=== PATIENT | female | born 1945 | race Caucasian/White ===

== ENCOUNTER 2019-09-03 12:14 | Outpatient (CLI) | payer MEDICARE, SELFPAY ==
--- NOTE | ~2019-09-03 | XR_ITS ---
XR elbow RT min 3V 09/03/2019 12:43 Indication: Right elbow pain Procedure: 4 views right elbow Comparison: No prior studies for comparison. Findings: There is lucency in the radial head, suspicious for nondisplaced fracture. There is a small joint effusion with displacement of the ventral fat pad. Anatomic alignment. No other fracture. Impression: 1: Possible nondisplaced radial head fracture. 2: Small joint effusion. Reviewed, dictated and finalized at location A. Impression: 1: Possible nondisplaced radial head fracture. 2: Small joint effusion.
== END 2019-09-03 12:15 | disposition home or self-care (01) ==
LOC: ANHIMG 12:24
PROVIDERS: PCP Internal Medicine; Visit Provider Internal Medicine
DX: M25.421 Effusion, right elbow (principal)
CPT/HCPCS: 73080

== ENCOUNTER → 2019-09-03 12:48 | Outpatient (CLI) | payer MEDICARE, SELFPAY ==
--- NOTE | ~2019-09-03 | MM_ITS ---
EXAMINATION: MM screening joshua BI w maame HISTORY: Screening mammogram TECHNIQUE: Craniocaudal and mediolateral oblique 3-D tomosynthesis images were obtained and synthetic 2-D images were generated. CAD analysis was submitted and interpreted. COMPARISON: Comparison to multiple prior studies sequentially, with oldest reviewed study dated 06/04. BREAST PARENCHYMAL COMPOSITION: There are scattered areas of fibroglandular density. FINDINGS: There is a focal subareolar mass in the right breast on MLO view measuring approximately 4 mm. The left breast is stable without evidence for malignancy. IMPRESSION: 1. New 4 mm right breast mass subareolar location. 2. Additional mammographic views and possible breast ultrasound are recommended. BI-RADS Category 0: Incomplete: Needs additional imaging evaluation. Reviewed, dictated and finalized at location A. IMPRESSION: 1. New 4 mm right breast mass subareolar location. 2. Additional mammographic views and possible breast ultrasound are recommended . BI-RADS Category 0: Incomplete: Needs additional imaging evaluation.
== END ==
PROVIDERS: PCP Internal Medicine; Visit Provider Internal Medicine
DX: Z12.31 Encounter for screening mammogram for malignant neoplasm of breast (principal); R92.8 Other abnormal and inconclusive findings on diagnostic imaging of breast
CPT/HCPCS: 77063; 77067

== ENCOUNTER 2019-09-12 12:18 | Outpatient (CLI) | payer MEDICARE, SELFPAY ==
--- NOTE | ~2019-09-12 | MMUS_ITS ---
EXAMINATION: MM diagnostic mammo unilat RT, US breast RT limited HISTORY: Subareolar right breast mass on screening mammogram TECHNIQUE: Additional 3-D tomosynthesis images of the right breast were performed and synthetic 2-D i mages were generated. CAD analysis was submitted and interpreted. High resolution limited right breas t ultrasound was performed. COMPARISON: 09/03/2019, 08/21/2018, 06/10/1917, 07/05/2016, 06/08/2015 FINDINGS: MAMMOGRAPHIC FINDINGS: A 4 mm subareolar mass is seen which has an appearance similar to comparison mammograms with spot com pression. No suspicious calcification or architectural distortion are identified. ULTRASOUND: There is no evidence of focal abnormal solid or cystic lesion in the vicinity of the mammographic fin ding in question. Mildly dilated subareolar ducts are noted. IMPRESSION: 1. No mammographic or sonographic evidence of malignancy. 2. Recommend routine screening mammography in one year. BI-RADS Category 2: Benign finding(s). Reviewed, dictated and finalized at location A. IMPRESSION: 1. No mammographic or sonographic evidence of malignancy. 2. Recommend routine screening mammography in one year. BI-RADS Category 2: Benign finding(s).
== END 2019-09-12 12:19 | disposition home or self-care (01) ==
LOC: ANHIMG 12:20
PROVIDERS: PCP Internal Medicine; Visit Provider Internal Medicine
DX: R92.8 Other abnormal and inconclusive findings on diagnostic imaging of breast (principal)
CPT/HCPCS: 76642; 77065

== ENCOUNTER 2020-02-16 17:45 | Emergency (ER) | payer MEDICARE, SELFPAY ==
--- NOTE | ~2020-02-16 | CT_ITS ---
EXAMINATION: CT brain wo con INDICATION: Headache COMPARISON: 05/31/2019 TECHNIQUE: Standard unenhanced head CT. The dose-length product (DLP) was 605.33 mGy-cm. The mA was a djusted according to patient size. Iterative reconstruction technique was employed. FINDINGS: There is no acute intraparenchymal hemorrhage. No evidence of mass lesion. No evidence of a cute infarction. There is mild periventricular and subcortical hypodensity probably related to small vessel ischemic disease. There is mild prominence of the sulci and ventricles related to cerebral atr ophy. Intracranial calcified cerebral atherosclerosis is noted. There are no extra-axial collections. There is no mass effect or midline shift. The orbits and soft tissues are unremarkable. The visuali zed sinuses and mastoid air cells are well aerated. IMPRESSION: 1. No acute intracranial abnormality. 2. Age related findings. Reviewed, dictated and finalized at location A.
[2020-02-16 18:02] VITALS: BP 182/90; PULSE 97; RESP 18; TEMP 36.7; O2SAT 98
[2020-02-16 18:18] LABS: Basophils Absolute Auto 0.1 K/mm3 (0.0-0.1); Basophils Percent Auto 0.6 % (0.2-1.2); Eosinophils Percent Auto 0.3 % (0-4.4); Hematocrit 36.1 % (37.0-47.0); Hemoglobin 11.2 g/dL (12.0-15.0); Immature Granulocyte Absolute 0.09 K/mm3 (0.00-0.031); Immature Granulocyte Percent A 0.8 % (0-0.5); Lymphocytes Absolute Auto 1.37 K/mm3 (0.9-3.2); Lymphocytes Percent Auto 12.1 % (18.3-44.2); Mean Corpuscular Hemoglobin 23.3 pg (26-34); Mean Corpuscular Volume 75.2 fl (80-100); Mean Platelet Volume 9.9 fl (7.4-10.4); Monocytes Absolute Auto 0.7 K/mm3 (0.1-0.6); Neutrophils Absolute Auto 9.1 K/mm3 (1.3-6.7); Neutrophils Percent Auto 80.2 % (45.5-73.1); Platelet Count Result 405 k/mm3 (150-375); Red Cell Distribution Width 18.2 % (11.5-14.5); White Blood Count 11.3 K/mm3 (4.5-10.0)
[2020-02-16 18:33] LABS: Alanine Aminotransferase 23 U/L (4-35); Albumin Level 4.7 g/dL (3.5-5.1); Alkaline Phosphatase 88 U/L (38-126); Anion Gap 13 mmol/L (8-16); Aspartate Amino Transferase 26 U/L (14-36); Bilirubin,Total 0.4 mg/dL (0.2-1.3); Blood Urea Nitrogen 15 mg/dL (7-17); Calcium 10.5 mg/dL (8.4-10.2); Carbon Dioxide 30 mmol/L (22-30); Chloride 95 mmol/L (98-107); Estimated Glomerular Filt Rate > 60; Glucose 223 mg/dL (65-105); Lipase 131 U/L (23-300); Potassium 3.7 mmol/L (3.4-5.0); Sodium 138 mmol/L (137-145)
--- NOTE | 2020-02-16 19:16 | ED.HA ---
HPI - Headache General Chief Complaint: Headache Stated Complaint: sick for two days] Time Seen by Provider: 02/16/20 19:09 Source: RN notes reviewed History of Present Illness HPI Narrative: Patient presents emergency department from home for headache. Patient states headache began yesterday morning and is located in the bilateral frontal forehead. Patient states she has a history of migraines and this feels like her usual migraine. States the migraines usually improved with Tylenol however she states her last dose of Tylenol was this morning continues to have the headache. States has been associated nausea and vomiting. She denies any fevers or chills chest pain shortness of breath abdominal pain or any other symptoms. Related Data Home Medications Medication Instructions Recorded Confirmed aspirin 325 mg tablet 325 mg PO DAILY 05/27/19 01/07/20 empagliflozin 25 mg tablet 25 mg PO DAILY 05/27/19 01/07/20 glucosamine-chondroitin 250 mg-200 2 tablet PO TID 05/27/19 01/07/20 mg tablet multivitamin 1 tablet PO DAILY 05/27/19 01/07/20 omeprazole 40 mg capsule,delayed 40 mg PO BID 05/27/19 01/07/20 release sitagliptin 50 mg-metformin 1,000 1 tablet PO BID 05/27/19 01/07/20 mg tablet Allergies Allergy/AdvReac Type Severity Reaction Status Date / Time codeine Allergy Intermediate VOMITING Verified 02/16/20 18:05 AND MIGRAINES fentanyl Allergy Intermediate MIGRAINE,VO Verified 02/16/20 18:05 MITING hydrocodone Allergy Intermediate MIGRAINE,VO Verified 02/16/20 18:05 MITING Krsktit-Ffk-Kec Reductase Allergy Intermediate MIGRAINE,VO Verified 02/16/20 18:05 Inhibitor MITING Sulfa (Sulfonamide Allergy Intermediate RASH,HIVE Verified 02/16/20 18:05 Antibiotics) belladonna alkaloids Allergy Mild MIGRAINE,VO Verified 02/16/20 18:05 MITING phenobarbital Allergy Mild MIGRAINES,V Verified 02/16/20 18:05 OMITING morphine Allergy Unknown MIGRAINE,VO Verified 02/16/20 18:05 MITING lisinopril AdvReac Intermediate COUGH Verified 02/16/20 18:05 Review of Systems Review of Systems: Narrative: Gen.: Denies fevers or chills Eyes: Denies eye pain or visual change ENT: Denies congestion Respiratory: Denies shortness of breath or cough CV: Denies chest pain or palpitations GI: Denies abdominal pain reports nausea vomiting, denies diarrhea denies burning, urgency, frequency or hematuria Musculoskeletal: Denies back pain or muscle pain Neuro: See HPI Skin: Denies rash Except as documented, all other systems reviewed and negative [facility] Past Medical History Medical History Chronic pruritus Medial epicondylitis of right elbow Social History Social History Smoking status: Never smoker Alcohol intake: current Exam Narrative: Exam Narrative: APPEARANCE: No acute distress, nontoxic, resting in bed HEENT: Normocephalic, atraumatic, OMM, TMs clear bilaterally EYES: PERRL, EOMI NECK: Supple, nontender, full range of motion without pain, no meningismus RESPIRATORY: No respiratory distress, clear to auscultation bilaterally with no rhonchi wheezing or rales CARDIOVASCULAR: RRR s murmur ABDOMINAL: Soft, nontender, nondistended MUSCULOSKELETAL: Moves all extremities. No clubbing, cyanosis or edema. NEURO: A and O ?3, following commands, speech normal, no facial droop,muscle strength 5 out of 5 bilateral upper and lower extremities SKIN:: Warm, dry. Normal Color PSYCHIATRIC: Normal affect/mood Course Course Emergency Course: Patient states she is feeling much better following medications states headache is almost completely resolved at this time. Patient got up and walk to the restroom several times without difficulty. Patient is able to eat and drink in ED with no emesis states she is ready for discharge Discussed with patient results of workup and diagnosis. Discussed need for
[2020-02-16 19:31] LABS: Add Urine Microscopic? YES; Appearance Urine Clear (Clear); Bacteria Urine Trace /hpf; Bilirubin Urine Negative (Negative); Color Urine Yellow (Yellow); Glucose Urine UA 2+ mg/dL (Negative); Ketones Urine 1+ mg/dL (Negative); Leukocyte Esterase Ur 2+ LEU/UL (Negative); Mucus Urine Rare /lpf; Nitrate Urine Negative (Negative); Protein Urine 2+ mg/dL (Negative); Specific Grav Ur 1.019 (1.001-1.035); Squamous Epithelial Cell Urine Occasional /hpf (Few); Urobilinogen Urine Negative mg/dL (<2.0); WBC Urine 31-50 /hpf
[2020-02-16 19:39] LABS: Blood Urine Negative (Negative)
[2020-02-16] MEDS: LACTATED RINGERS 1,000 ML 999 ML IV CONT (19:41)
[2020-02-16] MEDS: ONDANSETRON INJ 4 MG/2 ML VIAL IV PUSH (19:43)
[2020-02-16] MEDS: SODIUM CHLORIDE 0.9% IV 500 ML 999 ML IV CONT (20:56)
[2020-02-16 21:48] VITALS: BP 162/78; PULSE 94; RESP 17; O2SAT 98
== END 2020-02-16 22:00 | disposition home or self-care (01) ==
PROVIDERS: Physician Assistant; Emergency Provider Emergency Medicine; PCP Internal Medicine
DX: N39.0 Urinary tract infection, site not specified (principal); R51 Headache; Z79.82 Long term (current) use of aspirin
CPT/HCPCS: 36415; 70450; 80053; 81001; 83690; 85025; 87086; 87088; 96361; 96374; 96375; 99284; J0131; J0696; J2405; J7040; J7120

== ENCOUNTER 2020-02-25 14:38 | Emergency (ER) | payer MEDICARE, SELFPAY ==
[2020-02-25 15:21] VITALS: BP 153/79; PULSE 98; RESP 14; TEMP 36.8; O2SAT 100
[2020-02-25 15:36] VITALS: BP 153/79; PULSE 98; RESP 18; TEMP 36.3; O2SAT 100
--- NOTE | 2020-02-25 15:52 | ED.GENADULT ---
HPI - General Adult General Chief complaint: Headache Stated complaint: headache Time Seen by Provider: 02/25/20 15:45 Source: patient History of Present Illness HPI narrative: Patient is a 74 y/o female complaining of right sided headache starting around 3:00 PM yesterday. She describes her headache as a pressure and rates it as 10/10. She took Imitrex which did not help. She also has some nausea and vomiting. She denies any fever, chill, neck pain or stiffness. She denies any focal weakness, numbness or speech difficulty. She has history of migraine. Related Data Home Medications Medication Instructions Recorded Confirmed aspirin 325 mg tablet 325 mg PO DAILY 05/27/19 02/21/20 empagliflozin 25 mg tablet 25 mg PO DAILY 05/27/19 02/21/20 glucosamine-chondroitin 250 mg-200 2 tablet PO TID 05/27/19 02/21/20 mg tablet multivitamin 1 tablet PO DAILY 05/27/19 02/21/20 omeprazole 40 mg capsule,delayed 40 mg PO BID 05/27/19 02/21/20 release sitagliptin 50 mg-metformin 1,000 1 tablet PO BID 05/27/19 01/07/20 mg tablet dulaglutide [Trulicity] 0.75 mg SUBCUT WEEKLY 02/16/20 02/21/20 Allergies Allergy/AdvReac Type Severity Reaction Status Date / Time codeine Allergy Intermediate VOMITING Verified 02/25/20 15:35 AND MIGRAINES fentanyl Allergy Intermediate MIGRAINE,VO Verified 02/25/20 15:35 MITING hydrocodone Allergy Intermediate MIGRAINE,VO Verified 02/25/20 15:35 MITING Webakmc-Zre-Gxl Reductase Allergy Intermediate MIGRAINE,VO Verified 02/25/20 15:35 Inhibitor MITING Sulfa (Sulfonamide Allergy Intermediate RASH,HIVE Verified 02/25/20 15:35 Antibiotics) belladonna alkaloids Allergy Mild MIGRAINE,VO Verified 02/25/20 15:35 MITING phenobarbital Allergy Mild MIGRAINES,V Verified 02/25/20 15:35 OMITING morphine Allergy Unknown MIGRAINE,VO Verified 02/25/20 15:35 MITING lisinopril AdvReac Intermediate COUGH Verified 02/25/20 15:35 Review of Systems Constitutional: Constitutional: Denies chills, Denies fever(s), Denies headache(s) and Denies weakness Eyes: Eyes: Denies blurry vision ENT: Denies headache(s) and Denies neck pain Cardiovascular: Cardiovascular: Denies chest pain and Denies dyspnea Respiratory: Respiratory: Denies cough and Denies dyspnea Gastrointestinal: Gastrointestinal: Denies abdominal pain, Denies diarrhea, Reports nausea and Reports vomiting Genitourinary: Genitourinary: Denies hematuria and Denies dysuria Musculoskeletal: Musculoskeletal: Denies back pain and Denies neck pain Neurologic: Denies headache(s) and Denies weakness PMFSH Past Medical History Medical History Chronic pruritus Medial epicondylitis of right elbow Family History Family History Father Family history of blood dyscrasia Family history of Alzheimer's disease Family history of macular degeneration Mother Family history of chronic obstructive pulmonary disease Family history of coronary artery disease Family history of malignant neoplasm of esophagus Grandparent Carcinoma of colon Sibling Family history of type 2 diabetes mellitus Other Family history of malignant neoplasm of breast Social History Social History Smoking status: Never smoker Alcohol intake: current Gender identity (if verbalized by the patient): Female Exam Const: General: no acute distress and well developed Orientation/consciousness: oriented to person, oriented to place, oriented to time and patient oriented x3 HENMT: Head: normocephalic Ears: external ears normal General nose exam: Normal external nose present Eyes: General: appearance normal, both eyes and all related structures Conjunctivae: conjunctivae normal Neck: Neck: normal visual inspection and full ROM Chest: Chest palpation & inspection: normal inspection of the
[2020-02-25] MEDS: SODIUM CHLORIDE 0.9% IV 1,000 ML 999 ML IV CONT (16:11)
[2020-02-25 16:12] LABS: Basophils Absolute Auto 0.1 K/mm3 (0.0-0.1); Basophils Percent Auto 0.5 % (0.2-1.2); Eosinophils Absolute Auto 0.1 K/mm3 (0-0.3); Eosinophils Percent Auto 0.4 % (0-4.4); Hemoglobin 11.4 g/dL (12.0-15.0); Immature Granulocyte Absolute 0.06 K/mm3 (0.00-0.031); Immature Granulocyte Percent A 0.5 % (0-0.5); Lymphocytes Absolute Auto 1.41 K/mm3 (0.9-3.2); Lymphocytes Percent Auto 11.9 % (18.3-44.2); Mean Corpuscular HGB Conc 31.7 g/dl (32-36); Mean Corpuscular Hemoglobin 23.9 pg (26-34); Mean Corpuscular Volume 75.6 fl (80-100); Mean Platelet Volume 10.1 fl (7.4-10.4); Monocytes Absolute Auto 0.6 K/mm3 (0.1-0.6); Monocytes Percent Auto 5.3 % (2.6-8.5); Neutrophils Absolute Auto 9.6 K/mm3 (1.3-6.7); Neutrophils Percent Auto 81.4 % (45.5-73.1); Platelet Count Result 395 k/mm3 (150-375); Red Blood Count 4.76 M/mm3 (4.2-5.4); Red Cell Distribution Width 17.8 % (11.5-14.5); White Blood Count 11.8 K/mm3 (4.5-10.0)
[2020-02-25] MEDS: METOCLOPRAMIDE HCL INJ 10 MG/2 ML VIAL IV PUSH (16:12)
[2020-02-25] MEDS: KETOROLAC 15 MG/ML VIAL (*BKC) IV PUSH (16:12)
[2020-02-25] MEDS: diphenhydrAMINE HCl INJ 50 MG/ML VIAL 25 MG IV PUSH (16:12)
[2020-02-25 16:25] LABS: Anion Gap 11 mmol/L (8-16); Blood Urea Nitrogen 14 mg/dL (7-17); Calcium 10.4 mg/dL (8.4-10.2); Carbon Dioxide 32 mmol/L (22-30); Chloride 94 mmol/L (98-107); Estimated Glomerular Filt Rate > 60; Glucose 235 mg/dL (65-105); Potassium 4.1 mmol/L (3.4-5.0); Sodium 137 mmol/L (137-145)
[2020-02-25 17:55] VITALS: BP 186/91; PULSE 92; RESP 20; O2SAT 97
--- NOTE | 2020-02-25 17:58 | PC.NURSE ---
pt verbalizing that she plans to stop her home bp meds that this is what is causing her these headaches and she is not going to deal with it any longer. RN advised her to continue her home medications until further discussions with her pcp can happen.
== END 2020-02-25 17:59 | disposition home or self-care (01) ==
PROVIDERS: Emergency Provider Emergency Medicine; PCP Internal Medicine
DX: G43.909 Migraine, unspecified, not intractable, without status migrainosus (principal)
CPT/HCPCS: 36415; 80048; 85025; 96361; 96374; 96375; 99284; J1200; J1885; J2765; J7030

== ENCOUNTER 2020-03-26 09:45 | Outpatient (CLI) | payer MEDICARE, SELFPAY ==
--- NOTE | ~2020-03-26 | XR_ITS ---
EXAMINATION: XR chest 2V EXAM DATE: 03/26/2020 10:12 INDICATION: Cough. Hypertension. TECHNIQUE: Frontal and lateral projections of the chest obtained and reviewed. Comparison is made to prior examination from 05/07/2015. FINDINGS: The lungs are clear. There are no pleural effusions. The cardiomediastinal silhouette is within normal limits. There is no pneumothorax suspected. Mild thoracic dextroscoliosis. IMPRESSION: No acute cardiopulmonary findings. Reviewed, dictated and finalized at location B. OPERATOR
== END 2020-03-26 09:46 | disposition home or self-care (01) ==
PROVIDERS: PCP Internal Medicine; Visit Provider Internal Medicine
DX: R05 Cough (principal); I10 Essential (primary) hypertension
CPT/HCPCS: 71046

== ENCOUNTER 2020-04-09 08:21 | Outpatient (CLI) | payer MEDICARE, SELFPAY ==
--- NOTE | ~2020-04-09 | NM_ITS ---
EXAMINATION: NM stress w perf spect multi DATE: 04/09/2020 13:06 INDICATION: Chest pain on exertion. TECHNIQUE: Rest images were obtained following intravenous administration of 8.9 mCi Tc99m tetrofosmi n ([place]). The patient performed an exercise activity. At peak exercise, 26.8 mCi Tc99m tetrofosmin ([place]) was administered intravenously, and stress images were obtained. Data was reconstructed in to short axis and horizontal and vertical long axis SPECT images. Gated SPECT images were also obtain ed. COMPARISON: Myocardial perfusion imaging 08/02/2018 FINDINGS: There is no definite reversible or fixed perfusion abnormality to suggest ischemia or infar ction. There is no segmental wall motion abnormality. Left ventricular ejection fraction measures > 70%. IMPRESSION: 1. No definite ischemia or infarct. 2. Normal left ventricular ejection fraction measuring >70%. Reviewed, dictated and finalized at location A. GHT RATE SPECIALIST
--- NOTE | 2020-04-09 08:40 | EST_ITS ---
Patient Info Name: Shandra Wilson Age: 74 years : 1945 Gender: Female Ht: 57 in Exam Date: 04/09/2020 10:34 AM Exam Location: [facility] Stress Patient Status: Outpatient Admit Date: 04/09/2020 Staff Ordering Physician: Easton Dawson DO Attending Provider: Easton Dawson DO Exercise Technologist: Kaelyn Fuentes RDCS Exam Type: CA stress test treadmill w NM Study Info Indications R07.9 - Chest pain, unspecified A pharmacological stress test was performed. Summary 1. Normal sinus rhythm - normal ECG. 2. No abnormal ST/T wave changes with exercise. 3. Clinically and electrocardiographically negative stress test at 98% of the age predicted maximum heart rate. 4. Myocardial perfusion imaging study to be dictated by Radiology. Protocol: [facility] Stress ECG Details Stage: REST Duration (min): 12 min : 2 sec Speed (mph): 0.0 Grade (%): 0 HR (bpm): 89 SBP (mmHg): 189 DBP (mmHg): 91 METS: --- Stage: REST Duration (min): 16 min : 33 sec Speed (mph): 0.0 Grade (%): 0 HR (bpm): 90 SBP (mmHg): 189 DBP (mmHg): 91 METS: --- Stage: STAGE 1 Duration (min): 1 min : 0 sec Speed (mph): 1.7 Grade (%): 10 HR (bpm): 117 SBP (mmHg): 189 DBP (mmHg): 91 METS: --- Stage: STAGE 1 Duration (min): 2 min : 0 sec Speed (mph): 1.7 Grade (%): 10 HR (bpm): 124 SBP (mmHg): 189 DBP (mmHg): 91 METS: --- Stage: STAGE 1 Duration (min): 3 min : 0 sec Speed (mph): 1.7 Grade (%): 10 HR (bpm): 131 SBP (mmHg): 188 DBP (mmHg): 72 METS: --- Stage: STAGE 2 Duration (min): 1 min : 0 sec Speed (mph): 2.5 Grade (%): 12 HR (bpm): 144 SBP (mmHg): 188 DBP (mmHg): 72 METS: --- Stage: STAGE 2 Duration (min): 1 min : 10 sec Speed (mph): 2.5 Grade (%): 12 HR (bpm): 146 SBP (mmHg): 188 DBP (mmHg): 72 METS: --- Stage: RECOVERY Duration (min): 0 min : 49 sec Speed (mph): 0.0 Grade (%): 0 HR (bpm): 135 SBP (mmHg): 183 DBP (mmHg): 73 METS: --- Stage: RECOVERY Duration (min): 1 min : 49 sec Speed (mph): 0.0 Grade (%): 0 HR (bpm): 125 SBP (mmHg): 183 DBP (mmHg): 73 METS: --- Stage: RECOVERY Duration (min): 2 min : 49 sec Speed (mph): 0.0 Grade (%): 0 HR (bpm): 120 SBP (mmHg): 183 DBP (mmHg): 73 METS: --- Stage: RECOVERY Duration (min): 3 min : 49 sec Speed (mph): 0.0 Grade (%): 0 HR (bpm): 115 SBP (mmHg): 189 DBP (mmHg): 79 METS: --- Stage: RECOVERY Duration (min): 4 min : 49 sec Speed (mph): 0.0 Grade (%): 0 HR (bpm): 105 SBP (mmHg): 187 DBP (mmHg): 80 METS: --- Stage: RECOVERY Duration (min): 5 min : 49 sec Speed (mph): 0.0 Grade (%): 0 HR (bpm): 104 SBP (mmHg): 187 DBP (mmHg): 80 METS: ---
== END 2020-04-09 08:22 | disposition home or self-care (01) ==
LOC: ANHCARD 08:23
PROVIDERS: PCP Internal Medicine; Visit Provider Internal Medicine
DX: R07.9 Chest pain, unspecified (principal)
CPT/HCPCS: 78452; 93017; A9502

== ENCOUNTER 2020-05-26 10:49 | Outpatient (CLI) | payer MEDICARE, SELFPAY ==
--- NOTE | ~2020-05-26 | XR_ITS ---
XR thoracic spine 2V DATE: 05/26/2020 11:04 INDICATION: Paresthesia of the skin. Numbness, swelling. TECHNIQUE: AP and lateral views COMPARISON: None FINDINGS: There is dextroscoliosis of the thoracic spine. There is degenerative spurring, most promin ent in the T7-T10 region. There is probable chronic mild anterior wedging and loss of height at T7 and T8 primarily. No recent fracture or bone destruction or paraspinal soft tissue thickening is evident. The thoracic pedicles a re intact. IMPRESSION: Dextro scoliosis and degenerative spurring No acute finding is noted Reviewed, dictated and finalized at location B. UTER NUMERICAL CONTROL GRINDER
== END 2020-05-26 10:50 | disposition home or self-care (01) ==
LOC: ANHIMG 10:53
PROVIDERS: PCP Internal Medicine; Visit Provider Nurse Practitioner
DX: R20.2 Paresthesia of skin (principal); M41.9 Scoliosis, unspecified
CPT/HCPCS: 72070

== ENCOUNTER 2020-06-02 13:42 | Outpatient (CLI) | payer MEDICARE, SELFPAY ==
--- NOTE | ~2020-06-02 | US_ITS ---
EXAMINATION: US pelvic complete w TV EXAM DATE: 06/02/2020 14:36 INDICATION: R10.9 - Unspecified abdominal pain. TECHNIQUE: Pelvic transabdominal and transvaginal sonogram was performed. There are multiple graysca le and Doppler images available for interpretation. There is no prior study for comparison. FINDINGS: Uterus measures 4.0 x 3.6 x 4.7 cm, with probable small fibroid measuring 1 cm endometrial stripe measures 10 mm, abnormally thickened for patient's postmenopausal status, and also with heter ogeneous echogenicity. There are nabothian cysts. There is no free pelvic fluid. Right adnexa: The ovary is not identified. There is no adnexal mass. Left adnexa: The left ovary is normal in size and morphology. IMPRESSION: 1. Mildly thickened endometrium, differential diagnosis including hyperplasia and carcinoma. 2. Small fibroid. 3. No acute findings. Reviewed, dictated and finalized at location B. TRACK MAINTAINER
== END 2020-06-02 13:43 | disposition home or self-care (01) ==
PROVIDERS: PCP Internal Medicine; Visit Provider Obstetrics & Gynecology
DX: R10.2 Pelvic and perineal pain (principal); D25.9 Leiomyoma of uterus, unspecified
CPT/HCPCS: 76830; 76856

== ENCOUNTER 2020-12-05 09:04 | Observation (INO) | payer MEDICARE, SELFPAY ==
[2020-12-05] VITALS (41 sets, daily range): BP systolic 119–167; BP diastolic 53–84; PULSE 86–109; RESP 11–27; TEMP 36.4–37.2; O2SAT 86–100; BMI 29.7
--- NOTE | ~2020-12-05 | CT_ITS ---
EXAMINATION: CT abdomen pelvis w con INDICATION: Diffuse abdominal pain TECHNIQUE: Computed tomographic images of the abdomen and pelvis were obtained after the administrati on of 100 cc of Omnipaque 350 intravenous contrast. The dose-length product (DLP) was 275.58 mGy-cm. Automated exposure control and iterative reconstruction technique were employed. COMPARISON: 11/05/2014 FINDINGS: Minimal dependent atelectasis is present in the lung bases. The heart size is normal. The l iver, spleen, pancreas, gallbladder, and adrenal glands are normal. The kidneys are unremarkable. The appendix is normal. Colonic diverticulosis is present without evidence of diverticulitis. No patholo gically enlarged abdominal or pelvic lymph nodes are identified. There is no free intraperitoneal gas or evidence of bowel obstruction. There is mild lumbar spondylosis. IMPRESSION: 1. No CT correlate for the patient's symptoms. Reviewed, dictated and finalized at location A.
--- NOTE | ~2020-12-05 | XR_ITS ---
EXAMINATION: XR chest 1V portable INDICATION: Weakness TECHNIQUE: Portable AP chest at 1013 hours COMPARISON: 03/26/2020 FINDINGS: The lungs are free of acute opacities. There is no pleural effusion or pneumothorax. The ca rdiomediastinal silhouette is normal. The visualized bones and soft tissues are unremarkable. IMPRESSION: 1. No acute cardiopulmonary abnormality. Reviewed, dictated and finalized at location A.
--- NOTE | ~2020-12-05 | CT_ITS ---
EXAMINATION: CT brain wo con INDICATION: Generalized weakness COMPARISON: 02/16/2020 TECHNIQUE: Standard unenhanced head CT. The dose-length product (DLP) was 605.33 mGy-cm. The mA was a djusted according to patient size. Iterative reconstruction technique was employed. FINDINGS: There is no acute intraparenchymal hemorrhage. No evidence of mass lesion. No evidence of a cute infarction. There is hypoattenuation in left caudate and left insular cortex, and left temporal and occipital lobes. There is mild periventricular and subcortical hypodensity probably related to sm all vessel ischemic disease. There is mild prominence of the sulci and ventricles related to cerebral atrophy. Intracranial calcified cerebral atherosclerosis is noted. There are no extra-axial collecti ons. There is no mass effect or midline shift. The orbits and soft tissues are unremarkable. The visu alized sinuses and mastoid air cells are well aerated. IMPRESSION: 1. Low-attenuation in the left caudate, left insular cortex, and left temporal and occipital lobes, c onsistent with subacute infarct. 2. Age related findings. Reviewed, dictated and finalized at location A. IMPRESSION: 1. Low-attenuation in the left caudate, left insular cortex, and left temporal and occipital lobes, consistent with subacute infarct. 2. Age related findings.
--- NOTE | 2020-12-05 09:17 | ECG_ITS ---
Measurements Intervals [place] Rate: 85 P: 48 UT: 142 QRS: 17 QRSD: 72 T: 69 QT: 343 QTc: 408 Interpretive Statements SINUS RHYTHM DELAYED PRECORDIAL R/S TRANSITION BORDERLINE ST-T WAVE ABNORMALITY- HIGH LATERAL LEADS BASELINE WANDER- AVR, AVL, AVF BORDERLINE ECG Electronically Signed On 12-05-2020 12:01:30 CDT by Aristides Kent D.O.
--- NOTE | 2020-12-05 10:05 | ED.GENADULT ---
HPI - General Adult General Chief complaint: Arrhythmia/Palpitations Stated complaint: poss afib 170s Time Seen by Provider: 12/05/20 09:27 Source: family and RN notes reviewed Mode of arrival: ambulatory Limitations: other (poor historia) History of Present Illness HPI narrative: This is a 75 year old female with history of hypertension, DM, stroke who presents for evaluation for possible atrial fibrillation. Patient states she has felt unwell for 1 days. She reports 2 episodes in which she felt her heart racing. Her daughter in law wrote down that patient's HR was 170. Patient reports fatigue and nausea. She denies chest pain, sob, headache, dizziness, abdominal pain, diarrhea or urinary complaints. Her sister is at bedside to provide additional history. She states patient suffered a stroke in August, and she has weakness and intermittent confusion due to this stroke. Related Data Home Medications Medication Instructions Recorded Confirmed aspirin 325 mg tablet 325 mg PO DAILY 05/27/19 12/05/20 amlodipine 5 mg tablet 5 mg PO DAILY 11/18/20 12/05/20 atorvastatin 20 mg tablet 20 mg PO DAILY 11/18/20 12/05/20 clopidogrel 75 mg tablet 75 mg PO DAILY 11/18/20 12/05/20 ferrous sulfate 325 mg (65 mg 325 mg PO BID 11/18/20 12/05/20 iron) tablet fluoxetine 20 mg capsule 20 mg PO DAILY 11/18/20 12/05/20 hydralazine 50 mg tablet 75 mg PO BID tablet 11/18/20 12/05/20 insulin glargine 100 unit/mL 30 unit SUBCUT DAILY ml 11/18/20 12/05/20 subcutaneous solution insulin lispro 100 unit/mL 1 sliding scale dose SUBCUT 11/18/20 12/05/20 subcutaneous solution USEASDIRECTD losartan 100 mg tablet 50 mg PO DAILY tablet 11/18/20 12/05/20 menthol 0.44 %-zinc oxide 20.6 % 1 applic TOPICAL QID PRN 11/18/20 12/05/20 topical ointment pantoprazole 40 mg tablet,delayed 40 mg PO BID tablet 11/18/20 12/05/20 release aspirin 81 mg PO DAILY 12/05/20 12/05/20 linagliptin [Tradjenta] 5 mg PO DAILY 12/05/20 12/05/20 metformin 1,000 mg PO BID 12/05/20 12/05/20 Allergies Allergy/AdvReac Type Severity Reaction Status Date / Time Sulfa (Sulfonamide Allergy Intermediate RASH,HIVE Verified 12/05/20 16:47 Antibiotics) codeine AdvReac Intermediate VOMITING Verified 12/05/20 16:47 AND MIGRAINES fentanyl AdvReac Intermediate MIGRAINE,VO Verified 12/05/20 16:47 MITING hydrocodone AdvReac Intermediate MIGRAINE,VO Verified 12/05/20 16:47 MITING lisinopril AdvReac Intermediate COUGH Verified 12/05/20 16:47 metoprolol AdvReac Intermediate migraines,v Verified 12/05/20 16:47 omiting Nzbbkir-Ezv-Fxr Reductase AdvReac Intermediate MIGRAINE,VO Verified 12/05/20 16:47 Inhibitor MITING belladonna alkaloids AdvReac Mild MIGRAINE,VO Verified 12/05/20 16:47 MITING cephalexin AdvReac Mild Vomiting Verified 12/05/20 16:47 phenobarbital AdvReac Mild MIGRAINES,V Verified 12/05/20 16:47 OMITING morphine AdvReac Unknown MIGRAINE,VO Verified 12/05/20 16:47 MITING Review of Systems Review of Systems: All systems reviewed & are unremarkable except as noted in HPI and below Constitutional: Constitutional: Reports chills, Denies fever(s) and Reports weakness Cardiovascular: Cardiovascular: Denies chest pain and Denies rapid heart rate Respiratory: Respiratory: Denies cough and Denies dyspnea Gastrointestinal: Gastrointestinal: Denies abdominal pain, Reports diarrhea and Denies nausea PMFSH Past Medical History Medical History Chronic pruritus CVA (cerebral vascular accident) Diabetes DM w/o complication type II, uncontrolled Hyperlipidemia Hypertension Medial epicondylitis of right elbow Uterine cancer Surgical History Surgical History H/O: hysterectomy Family History Family History Father Family history of blood dyscrasia Family
[2020-12-05] MEDS: SODIUM CHLORIDE 0.9% IV 1,000 ML 999 ML IV CONT ×2 (10:31→11:30)
[2020-12-05 10:37] LABS: Glucose Point of Care 102 mg/dl (65-105)
[2020-12-05 10:56] LABS: Basophils Absolute Auto 0.1 K/mm3 (0.0-0.1); Basophils Percent Auto 0.7 % (0.2-1.2); Eosinophils Absolute Auto 0.1 K/mm3 (0-0.3); Eosinophils Percent Auto 0.7 % (0-4.4); Hematocrit 31.5 % (37.0-47.0); Hemoglobin 10.7 g/dL (12.0-15.0); Immature Granulocyte Absolute 0.07 K/mm3 (0.00-0.031); Immature Granulocyte Percent A 0.6 % (0-0.5); Lymphocytes Absolute Auto 1.23 K/mm3 (0.9-3.2); Lymphocytes Percent Auto 10.6 % (18.3-44.2); Mean Corpuscular Hemoglobin 28.2 pg (26-34); Mean Corpuscular Volume 83.1 fl (80-100); Mean Platelet Volume 10.4 fl (7.4-10.4); Monocytes Percent Auto 8.3 % (2.6-8.5); Neutrophils Absolute Auto 9.2 K/mm3 (1.3-6.7); Neutrophils Percent Auto 79.1 % (45.5-73.1); Platelet Count Result 363 k/mm3 (150-375); Red Blood Count 3.79 M/mm3 (4.2-5.4); Red Cell Distribution Width 14.9 % (11.5-14.5); White Blood Count 11.6 K/mm3 (4.5-10.0)
[2020-12-05 11:12] LABS: Add Urine Microscopic? NO; Appearance Urine Clear (Clear); Bilirubin Urine Negative (Negative); Blood Urine Negative (Negative); Color Urine Yellow (Yellow); Glucose Urine UA Negative (Negative); Ketones Urine Negative (Negative); Leukocyte Esterase Ur Negative LEU/UL (Negative); Nitrate Urine Negative (Negative); Protein Urine Negative (Negative); Specific Grav Ur 1.009 (1.001-1.035); Urobilinogen Urine Negative mg/dL (<2.0)
[2020-12-05 11:13] LABS: Alanine Aminotransferase 11 U/L (4-35); Albumin Level 4.1 g/dL (3.5-5.1); Alkaline Phosphatase 52 U/L (38-126); Anion Gap 12 mmol/L (8-16); Aspartate Amino Transferase 26 U/L (14-36); Bilirubin,Total 0.4 mg/dL (0.2-1.3); Blood Urea Nitrogen 18 mg/dL (7-17); Carbon Dioxide 20 mmol/L (22-30); Chloride 98 mmol/L (98-107); Estimated Glomerular Filt Rate 49; Glucose 117 mg/dL (65-110); Lipase 272 U/L (23-300); Magnesium 0.8 mg/dL (1.6-2.3); Potassium 4.1 mmol/L (3.4-5.0); Sodium 130 mmol/L (137-145)
[2020-12-05 11:25] LABS: Troponin I < 0.012 ng/mL (0.000-0.034)
[2020-12-05] MEDS: MAGNESIUM SULFATE 3GM/D5W100ML 3 GM/100 ML BAG IVPB (11:30)
[2020-12-05 11:35] LABS: Lactic Acid Reflex 0.9 mmol/L (0.7-2.1)
--- NOTE | 2020-12-05 12:42 | PC.NURSE ---
Pt to radiology
--- NOTE | 2020-12-05 14:52 | PC.NURSE ---
Pt approved sister, Viv Domingo ([phone]), to receive updates and medical information during hospital stay.
--- NOTE | 2020-12-05 15:04 | PC.NURSE ---
Blood glucose was 73 before eating lunch
[2020-12-05 15:05] LABS: Glucose Point of Care 73 mg/dl (65-105)
--- NOTE | 2020-12-05 16:00 | PM.IMHP ---
H&P: HPI History of Present Illness Date/Time: 12/05/20 15:15 Chief Complaint: arrhythmia palpitations Narrative: patient is a 75-year-old female with past medical history of CVA, hypertension, diabetes, and hyperlipidemia that presented to the ER today for evaluation of tachycardia. Patient stated that this all started yesterday and that she had palpitations for 3 hours. One of her family members took her rate pulse rate of 178 and another 1 of her family members took it later on that night was 98. She also stated that she became very short of breath however she denied chest pain nausea, vomiting, sweats, headache lightheadedness, dizziness, numbness and tingling. She did also state that she had some shaking that would not stop it was a whole body is. She did not take anything to help relieve the symptoms. Patient did state that she had a stroke about a month ago and went to [facility] for treatment. After [facility] she went to rehab and then to [facility] for about a week And a half. patient denies a history of AFib. patient will be admitted under observation status with the supervising physician of Dr. Gutierres Review of Systems Review of Systems: All systems reviewed & are unremarkable except as noted in HPI and below PMFSH Past Medical History Medical History Chronic pruritus CVA (cerebral vascular accident) Diabetes DM w/o complication type II, uncontrolled Hyperlipidemia Hypertension Medial epicondylitis of right elbow Uterine cancer Surgical History Surgical History H/O: hysterectomy Family History Family History Father Family history of blood dyscrasia Family history of Alzheimer's disease Family history of macular degeneration Mother Family history of chronic obstructive pulmonary disease Family history of coronary artery disease Family history of malignant neoplasm of esophagus Grandparent Carcinoma of colon Sibling Family history of type 2 diabetes mellitus Other Family history of malignant neoplasm of breast Social History Social History Social History: patient recently had a stroke about a month ago and was at [facility] for last week and half. When she leaves here she is going to move in with her son Chin in [place]. her son Chin Resendez will be her surrogate and patient wishes to be a full code. Currently patient lives with no other pets Smoking status: Never smoker Second hand tobacco smoke exposure: Yes Alcohol intake: former Alcohol use details: Social Substance use: never Living arrangements: [facility] Occupation/Education: retired Gender identity (if verbalized by the patient): Female Sexual Orientation (if Verbalized by the Patient): Straight or Heterosexual Spiritual care concerns: No Meds Home Medications and Allergies Home Medications Medication Instructions Recorded Confirmed Type blood sugar diagnostic #200 ea 03/31/20 12/05/20 Rx ondansetron 4 mg disintegrating 4 mg PO Q6H PRN #30 tablet 08/11/20 12/05/20 Rx tablet ezetimibe 10 mg tablet 10 mg PO DAILY #90 tablet 09/14/20 12/05/20 Rx amlodipine 5 mg tablet 5 mg PO DAILY 11/18/20 12/05/20 History atorvastatin 20 mg tablet 20 mg PO DAILY 11/18/20 12/05/20 History clopidogrel 75 mg tablet 75 mg PO DAILY 11/18/20 12/05/20 History ferrous sulfate 325 mg (65 mg 325 mg PO BID 11/18/20 12/05/20 History iron) tablet fluoxetine 20 mg capsule 20 mg PO DAILY 11/18/20 12/05/20 History hydralazine 50 mg tablet 75 mg PO BID tablet 11/18/20 12/05/20 History insulin glargine 100 unit/mL 30 unit SUBCUT DAILY ml 11/18/20 12/05/20 History subcutaneous solution insulin lispro 100 unit/mL 1 sliding scale dose SUBCUT 11/18/20 12/05/20 History subcutaneous solution USEASDIRECTD lo
--- NOTE | 2020-12-05 16:26 | ADMGEN ---
This patient, Shandra Wilson, was admitted to 3 Med Surg Room 305-01. Patient/family oriented to hospital policies and general routines including ID bracelet, bed and alarms, visiting hours, pain management, procedures, bathroom and other care routines, personal items, smoking policy, room service/diet, and visiting hours. Information on how to activate the Rapid Response Team has been discussed. Patient/Family are encouraged to report perceived risks to care and to ask questions if they do not understand what they are told or what they should do.
[2020-12-05 17:01] LABS: Glucose Point of Care 144 mg/dl (65-105)
[2020-12-05 17:21] LABS: Magnesium 1.9 mg/dL (1.6-2.3)
[2020-12-05] MEDS: SODIUM CHLORIDE 0.9% IV 1,000 ML 125 ML IV CONT (18:29)
[2020-12-05] MEDS: hydrALAZINE HCL 25 MG TABLET 75 MG PO (18:30)
[2020-12-05] MEDS: PANTOPRAZOLE 40 MG TABLET PO (18:30)
[2020-12-05] MEDS: FERROUS SULFATE 324 MG TABLET PO (18:30)
[2020-12-05 21:58] LABS: Glucose Point of Care 127 mg/dl (65-105)
[2020-12-06] VITALS (9 sets, daily range): BP systolic 150–155; BP diastolic 59–86; PULSE 90–103; RESP 16–18; TEMP 36.6–37.1; O2SAT 97–98
[2020-12-06] MEDS: SODIUM CHLORIDE 0.9% IV 1,000 ML 125 ML IV CONT (02:38)
[2020-12-06 06:04] LABS: Anion Gap 12 mmol/L (8-16); Blood Urea Nitrogen 10 mg/dL (7-17); Calcium 9.2 mg/dL (8.4-10.2); Carbon Dioxide 18 mmol/L (22-30); Chloride 109 mmol/L (98-107); Estimated Glomerular Filt Rate > 60; Glucose 128 mg/dL (65-110); Magnesium 1.4 mg/dL (1.6-2.3); Potassium 4.2 mmol/L (3.4-5.0); Sodium 139 mmol/L (137-145)
[2020-12-06 07:55] LABS: Glucose Point of Care 152 mg/dl (65-105)
[2020-12-06] MEDS: MAGNESIUM SULF 4 GM/WATER100ML 4 GM/100 ML BAG IVPB (07:57)
[2020-12-06] MEDS: CLOPIDOGREL BISULFATE 75 MG TABLET PO (08:57)
[2020-12-06] MEDS: FERROUS SULFATE 324 MG TABLET PO ×2 (08:57→17:31)
[2020-12-06] MEDS: ATORVASTATIN 20 MG TABLET PO (08:57)
[2020-12-06] MEDS: amLODIPine BESYLATE 5 MG TABLET PO (08:57)
[2020-12-06] MEDS: FLUoxetine HCL 20 MG CAPSULE PO (08:57)
[2020-12-06] MEDS: PANTOPRAZOLE 40 MG TABLET PO ×2 (08:57→17:31)
[2020-12-06] MEDS: LOSARTAN POTASSIUM 50 MG TABLET PO (08:57)
[2020-12-06] MEDS: ASPIRIN 81 MG ENTERIC TABLET PO (08:57)
[2020-12-06] MEDS: EZETIMIBE 10 MG TABLET PO (08:57)
[2020-12-06] MEDS: hydrALAZINE HCL 25 MG TABLET 75 MG PO ×2 (08:58→17:31)
[2020-12-06] MEDS: INSULIN GLARGINE (*BKC) 100 UNITS/ML 30 UNITS SUB-Q (08:58)
--- NOTE | 2020-12-06 09:59 | P.PNIM_ITS ---
Progress Note: A&P Assessment and Plan (1) Tachycardia: Code(s): R00.0 - Tachycardia, unspecified Status: Acute Assessment and Plan: * Subjective heart rate of 170 * Currently ST in the 100s * Could have been in afib * EKG shows SR in the 80s * Telemonitor * Trend heart rate and rhythm (2) Hypertension: Code(s): I10 - Essential (primary) hypertension Status: Acute Assessment and Plan: * BP 154/81 * continue home amlodipine 5 mg p.o. daily, continue home hydralazine 75 mg b.i.d., continue home losartan 50 mg daily. * Trend blood pressure * adjust medications as needed (3) Hypomagnesemia: Code(s): E83.42 - Hypomagnesemia Status: Acute Assessment and Plan: * magnesium upon arrival was 0.8 * 3 g of magnesium were given in the ED * Magnesium was 1.4 today * Tried to replace with 4g of IV mag, patient will not tolerate it * Transition to oral mag 400mg PO BID * replace as needed * trend magnesium * labs in the a.m. (4) CVA (cerebral vascular accident): Code(s): I63.9 - Cerebral infarction, unspecified Status: Acute Assessment and Plan: * history of a CVA 1 month ago * right-sided residual weakness, expressive aphasia * PT/OT * continue clopidogrel 75 mg daily, and aspirin 81mg PO daily (5) Weakness: Code(s): R53.1 - Weakness Status: Acute Assessment and Plan: * right-sided weakness * PT and OT * in chair for meals (6) Mixed hyperlipidemia: Code(s): E78.2 - Mixed hyperlipidemia Status: Acute Assessment and Plan: * continue patient's atorvastatin 20 mg p.o. daily * continue patient's Zetia 10 mg daily * will get lipid panel in the morning * adjust medications as needed (7) Type 2 diabetes mellitus without complication, without long-term current use of insulin: Code(s): E11.9 - Type 2 diabetes mellitus without complications Status: Acute Assessment and Plan: * current glucose 128 * hold patient's metformin, Tradjenta * continue patient's home Lantus 30 units subcu daily * initiate sliding scale * trend glucose * labs in a.m. * adjust medications as needed Subjective Date/time seen: 12/06/20 09:59 Interval history: patient is a 75-year-old female with past medical history of CVA, hypertension, diabetes, and hyperlipidemia that presented to the ER today for evaluation of tachycardia. It is been a very tough morning for the patient. Her magnesium was noted to be low at 1.4 again today when it was being infused did hurt her arm and gave her some burning sensation. I talked to the patient the patient stated that she is just not happy and stated that she was not going to do it. The patient does not want to try IV magnesium due to the pain sensation. At this time I will transition patient over to oral magnesium. I did talk to the patient about the possibility of her a rhythm is being which contributed to the low magnesium. Patient has no other complaints but is very emotional crying and being very abrupt and harsh. Patient denies chest pain, palpitations, nausea, vomiting, abdominal pain, lightheadedness, dizziness, syncope. Review of Systems Review of Systems: All systems reviewed & are unremarkable except as noted in HPI and below Exam Const: General: cooperative, health
--- NOTE | 2020-12-06 09:59 | PM.IMPN ---
Progress Note: A&P Assessment and Plan (1) Tachycardia: Code(s): R00.0 - Tachycardia, unspecified Status: Acute Assessment and Plan: Subjective heart rate of [address] in the 100s Could have been in afib EKG shows SR in the 80s Telemonitor Trend heart rate and rhythm (2) Hypertension: Code(s): I10 - Essential (primary) hypertension Status: Acute Assessment and Plan: BP 154/81 continue home amlodipine 5 mg p.o. daily, continue home hydralazine 75 mg b.i.d., continue home losartan 50 mg daily. Trend blood pressure adjust medications as needed (3) Hypomagnesemia: Code(s): E83.42 - Hypomagnesemia Status: Acute Assessment and Plan: magnesium upon arrival was 0.8 3 g of magnesium were given in the ED Magnesium was 1.4 today Tried to replace with 4g of IV mag, patient will not tolerate it Transition to oral mag 400mg PO BID replace as needed trend magnesium labs in the a.m. (4) CVA (cerebral vascular accident): Code(s): I63.9 - Cerebral infarction, unspecified Status: Acute Assessment and Plan: history of a CVA 1 month ago right-sided residual weakness, expressive aphasia PT/OT continue clopidogrel 75 mg daily, and aspirin 81mg PO daily (5) Weakness: Code(s): R53.1 - Weakness Status: Acute Assessment and Plan: right-sided weakness PT and OT in chair for meals (6) Mixed hyperlipidemia: Code(s): E78.2 - Mixed hyperlipidemia Status: Acute Assessment and Plan: continue patient's atorvastatin 20 mg p.o. daily continue patient's Zetia 10 mg daily will get lipid panel in the morning adjust medications as needed (7) Type 2 diabetes mellitus without complication, without long-term current use of insulin: Code(s): E11.9 - Type 2 diabetes mellitus without complications Status: Acute Assessment and Plan: current glucose 128 hold patient's metformin, Tradjenta continue patient's home Lantus 30 units subcu daily initiate sliding scale trend glucose labs in a.m. adjust medications as needed Subjective Date/time seen: 12/06/20 09:59 Interval history: patient is a 75-year-old female with past medical history of CVA, hypertension, diabetes, and hyperlipidemia that presented to the ER today for evaluation of tachycardia. It is been a very tough morning for the patient. Her magnesium was noted to be low at 1.4 again today when it was being infused did hurt her arm and gave her some burning sensation. I talked to the patient the patient stated that she is just not happy and stated that she was not going to do it. The patient does not want to try IV magnesium due to the pain sensation. At this time I will transition patient over to oral magnesium. I did talk to the patient about the possibility of her a rhythm is being which contributed to the low magnesium. Patient has no other complaints but is very emotional crying and being very abrupt and harsh. Patient denies chest pain, palpitations, nausea, vomiting, abdominal pain, lightheadedness, dizziness, syncope. Review of Systems Review of Systems: All systems reviewed & are unremarkable except as noted in HPI and below Exam Const: General: cooperative, healthy appearing, comfortable, no acute distress, well developed, alert, awake, Physically active and tired appearing Nutritional Appearance: average body habitus, well nourished, obese and overweight Orientation/consciousness: oriented to person, oriented to place, oriented to time and patient oriented x3 Limitations: no limitations HENMT: Head: normal to inspection Ears: hearing grossly normal bilaterally General nose exam: Normal external nose present Mouth: Yes Normal oral and palatal mucosa present, Yes lip normal and Yes tongue normal Teeth and gingiva: abnormal
[2020-12-06 12:28] LABS: Glucose Point of Care 151 mg/dl (65-105)
[2020-12-06] MEDS: MAGNESIUM OXIDE 400 MG TABLET PO ×2 (13:19→17:31)
[2020-12-06 15:21] LABS: Basophils Absolute Auto 0.1 K/mm3 (0.0-0.1); Basophils Percent Auto 0.6 % (0.2-1.2); Eosinophils Absolute Auto 0.1 K/mm3 (0-0.3); Eosinophils Percent Auto 1.4 % (0-4.4); Hematocrit 32.6 % (37.0-47.0); Hemoglobin 11.1 g/dL (12.0-15.0); Immature Granulocyte Absolute 0.03 K/mm3 (0.00-0.031); Immature Granulocyte Percent A 0.4 % (0-0.5); Lymphocytes Absolute Auto 1.64 K/mm3 (0.9-3.2); Lymphocytes Percent Auto 19.8 % (18.3-44.2); Mean Corpuscular Hemoglobin 28.9 pg (26-34); Mean Corpuscular Volume 84.9 fl (80-100); Monocytes Absolute Auto 0.7 K/mm3 (0.1-0.6); Monocytes Percent Auto 8.2 % (2.6-8.5); Neutrophils Absolute Auto 5.8 K/mm3 (1.3-6.7); Neutrophils Percent Auto 69.6 % (45.5-73.1); Nucleated Red Blood Cells Perc 0.2 % (0.0-0.2); Red Blood Count 3.84 M/mm3 (4.2-5.4); Red Cell Distribution Width 15.9 % (11.5-14.5); White Blood Count 8.3 K/mm3 (4.5-10.0)
[2020-12-06 17:48] LABS: Glucose Point of Care 155 mg/dl (65-105)
[2020-12-07] VITALS: PULSE 90
[2020-12-07 04:00] VITALS: PULSE 83
[2020-12-07 06:00] VITALS: BP 146/78; PULSE 66; RESP 18; TEMP 36.3; O2SAT 98
[2020-12-07 07:03] LABS: Alanine Aminotransferase 9 U/L (4-35); Albumin Level 3.8 g/dL (3.5-5.1); Alkaline Phosphatase 54 U/L (38-126); Anion Gap 13 mmol/L (8-16); Aspartate Amino Transferase 21 U/L (14-36); Bilirubin,Total 0.3 mg/dL (0.2-1.3); Blood Urea Nitrogen 7 mg/dL (7-17); Calcium 9.3 mg/dL (8.4-10.2); Carbon Dioxide 23 mmol/L (22-30); Chloride 100 mmol/L (98-107); Estimated Glomerular Filt Rate > 60; Glucose 133 mg/dL (65-110); Magnesium 1.6 mg/dL (1.6-2.3); Potassium 3.2 mmol/L (3.4-5.0); Sodium 136 mmol/L (137-145)
[2020-12-07 08:03] LABS: Glucose Point of Care 148 mg/dl (65-105)
--- NOTE | 2020-12-07 08:27 | P.DS_ITS ---
DS: Admitting Diagnosis Admitting Diagnosis Admitting Diagnosis: Tachycardia DS: Discharge Diagnosis Discharge Diagnosis (1) Tachycardia: Code(s): R00.0 - Tachycardia, unspecified Status: Acute Assessment and Plan: * Subjective heart rate of 170 * Currently ST in the 100s * Could have been in afib * EKG shows SR in the 80s * Telemonitor * Trend heart rate and rhythm Magnesium was noted to be low and was 0.8 upon arrival to the ED. No other complaints regarding heart rate or arrhythmia. Will DC with 400 mag oxide BID. Follow up labs in one week (2) Hypertension: Code(s): I10 - Essential (primary) hypertension Status: Acute Assessment and Plan: * BP 146/78 * continue home amlodipine 5 mg p.o. daily, continue home hydralazine 75 mg b.i.d., continue home losartan 50 mg daily. * Trend blood pressure * adjust medications as needed (3) Hypomagnesemia: Code(s): E83.42 - Hypomagnesemia Status: Acute Assessment and Plan: * magnesium upon arrival was 0.8 * 3 g of magnesium were given in the ED * Magnesium was 1.6 today * Tried to replace with 4g of IV mag * Transition to oral mag 400mg PO BID * replace as needed * trend magnesium * labs in the a.m. Will send patient home on 400 mag oxide BID, and follow up labs in one week (4) CVA (cerebral vascular accident): Code(s): I63.9 - Cerebral infarction, unspecified Status: Acute Assessment and Plan: * history of a CVA 1 month ago * right-sided residual weakness, expressive aphasia * PT/OT * continue clopidogrel 75 mg daily, and aspirin 81mg PO daily (5) Weakness: Code(s): R53.1 - Weakness Status: Acute Assessment and Plan: * right-sided weakness * PT and OT * in chair for meals (6) Mixed hyperlipidemia: Code(s): E78.2 - Mixed hyperlipidemia Status: Acute Assessment and Plan: * continue patient's atorvastatin 20 mg p.o. daily * continue patient's Zetia 10 mg daily * will get lipid panel in the morning * adjust medications as needed (7) Type 2 diabetes mellitus without complication, without long-term current use of insulin: Code(s): E11.9 - Type 2 diabetes mellitus without complications Status: Acute Assessment and Plan: * current glucose 133 * hold patient's metformin, Tradjenta * continue patient's home Lantus 30 units subcu daily * initiate sliding scale * trend glucose * labs in a.m. * adjust medications as needed DS: Summary Hospital Course Hospital Course: patient is a 75-year-old female with past medical history of CVA, hypertension, diabetes, and hyperlipidemia that presented to the ER today for evaluation of tachycardia. upon arrival to the ED patient's magnesium was noted to be 0.8 at that time she received 3 g of magnesium which brought it up to 1.9, in the a.m. the patient was 1.4 4 g of magnesium were given at that time. Today patient's magnesium is 1.6 patient was started on 400 mg of Mag oxide b.i.d. and given 4 g IV. Initial vital signs were 36.9 degree C with a heart rate of 94 with a respiratory rate of 16 and blood pressure 138/74 pulse oximetry was 95% on room air. Today vital signs remained stable with a temperature of 36.3? C a heart rate of 66 oxygen rate of 98% on room air respiratory rate of 18 blood pressure 146/78. all other labs reyes
--- NOTE | 2020-12-07 08:27 | PM.DS ---
DS: Admitting Diagnosis Admitting Diagnosis Admitting Diagnosis: Tachycardia DS: Discharge Diagnosis Discharge Diagnosis (1) Tachycardia: Code(s): R00.0 - Tachycardia, unspecified Status: Acute Assessment and Plan: Subjective heart rate of [address] in the 100s Could have been in afib EKG shows SR in the 80s Telemonitor Trend heart rate and rhythm Magnesium was noted to be low and was 0.8 upon arrival to the ED. No other complaints regarding heart rate or arrhythmia. Will DC with 400 mag oxide BID. Follow up labs in one week (2) Hypertension: Code(s): I10 - Essential (primary) hypertension Status: Acute Assessment and Plan: BP 146/78 continue home amlodipine 5 mg p.o. daily, continue home hydralazine 75 mg b.i.d., continue home losartan 50 mg daily. Trend blood pressure adjust medications as needed (3) Hypomagnesemia: Code(s): E83.42 - Hypomagnesemia Status: Acute Assessment and Plan: magnesium upon arrival was 0.8 3 g of magnesium were given in the ED Magnesium was 1.6 today Tried to replace with 4g of IV mag Transition to oral mag 400mg PO BID replace as needed trend magnesium labs in the a.m. Will send patient home on 400 mag oxide BID, and follow up labs in one week (4) CVA (cerebral vascular accident): Code(s): I63.9 - Cerebral infarction, unspecified Status: Acute Assessment and Plan: history of a CVA 1 month ago right-sided residual weakness, expressive aphasia PT/OT continue clopidogrel 75 mg daily, and aspirin 81mg PO daily (5) Weakness: Code(s): R53.1 - Weakness Status: Acute Assessment and Plan: right-sided weakness PT and OT in chair for meals (6) Mixed hyperlipidemia: Code(s): E78.2 - Mixed hyperlipidemia Status: Acute Assessment and Plan: continue patient's atorvastatin 20 mg p.o. daily continue patient's Zetia 10 mg daily will get lipid panel in the morning adjust medications as needed (7) Type 2 diabetes mellitus without complication, without long-term current use of insulin: Code(s): E11.9 - Type 2 diabetes mellitus without complications Status: Acute Assessment and Plan: current glucose 133 hold patient's metformin, Tradjenta continue patient's home Lantus 30 units subcu daily initiate sliding scale trend glucose labs in a.m. adjust medications as needed DS: Summary Hospital Course Hospital Course: patient is a 75-year-old female with past medical history of CVA, hypertension, diabetes, and hyperlipidemia that presented to the ER today for evaluation of tachycardia. upon arrival to the ED patient's magnesium was noted to be 0.8 at that time she received 3 g of magnesium which brought it up to 1.9, in the a.m. the patient was 1.4 4 g of magnesium were given at that time. Today patient's magnesium is 1.6 patient was started on 400 mg of Mag oxide b.i.d. and given 4 g IV. Initial vital signs were 36.9 degree C with a heart rate of 94 with a respiratory rate of 16 and blood pressure 138/74 pulse oximetry was 95% on room air. Today vital signs remained stable with a temperature of 36.3? C a heart rate of 66 oxygen rate of 98% on room air respiratory rate of 18 blood pressure 146/78. all other labs have been stable in remained stable throughout the visit. Patient will need to follow-up with primary in 1-2 weeks and will need to get lab work towards the end of this week. Patient is going home with her son and [id number] and will continue work with PT and OT as an outpatient. Did talk to the son about discharge and that she was going to need to follow up with labs and that PCP to continue getting appropriate treatment. I also told him that the patient was here for treatment of a fast heart rate and that her magnesium is low.
[2020-12-07] MEDS: MAGNESIUM SULF 4 GM/WATER100ML 4 GM/100 ML BAG IVPB (10:56)
[2020-12-07] MEDS: amLODIPine BESYLATE 5 MG TABLET PO (10:58)
[2020-12-07] MEDS: FERROUS SULFATE 324 MG TABLET PO ×2 (10:58→16:33)
[2020-12-07] MEDS: EZETIMIBE 10 MG TABLET PO (10:59)
[2020-12-07] MEDS: ASPIRIN 81 MG ENTERIC TABLET PO (10:59)
[2020-12-07] MEDS: CLOPIDOGREL BISULFATE 75 MG TABLET PO (10:59)
[2020-12-07] MEDS: ATORVASTATIN 20 MG TABLET PO (10:59)
[2020-12-07 11:00] VITALS: PULSE 100
[2020-12-07] MEDS: PANTOPRAZOLE 40 MG TABLET PO ×2 (11:00→16:33)
[2020-12-07] MEDS: MAGNESIUM OXIDE 400 MG TABLET PO (11:00)
[2020-12-07] MEDS: FLUoxetine HCL 20 MG CAPSULE PO (11:00)
[2020-12-07] MEDS: LOSARTAN POTASSIUM 50 MG TABLET PO (11:00)
[2020-12-07] MEDS: hydrALAZINE HCL 25 MG TABLET 75 MG PO ×2 (11:00→16:33)
[2020-12-07 12:00] VITALS: PULSE 96
[2020-12-07 12:06] LABS: Glucose Point of Care 177 mg/dl (65-105)
[2020-12-07] MEDS: INSULIN GLARGINE (*BKC) 100 UNITS/ML 30 UNITS SUB-Q (12:13)
[2020-12-07 14:00] VITALS: BP 139/82; PULSE 90; RESP 20; TEMP 36.6; O2SAT 97
[2020-12-07] MEDS: POTASSIUM CHLORIDE 20 MEQ TABLET 40 MEQ PO (14:07)
== END 2020-12-07 17:10 | disposition home health service (06) ==
LOC: ANHED 14:50 → ANH3MEDSUR 15:49
PROVIDERS: Nurse Practitioner; Admitting Provider Internal Medicine Critical Care Medicine; Emergency Provider General Practice; PCP Internal Medicine; Visit Provider Internal Medicine
DX: R00.0 Tachycardia, unspecified (principal); E83.42 Hypomagnesemia; R53.1 Weakness; I69.351 Hemiplegia and hemiparesis following cerebral infarction affecting right dominant side; I69.320 Aphasia following cerebral infarction; R06.02 Shortness of breath; I10 Essential (primary) hypertension; E78.2 Mixed hyperlipidemia; E11.9 Type 2 diabetes mellitus without complications; Z79.02 Long term (current) use of antithrombotics/antiplatelets; Z79.82 Long term (current) use of aspirin; Z79.4 Long term (current) use of insulin; Z79.84 Long term (current) use of oral hypoglycemic drugs; Z85.42 Personal history of malignant neoplasm of other parts of uterus
CPT/HCPCS: 36415; 70450; 71045; 74177; 80048; 80053; 81003; 82948; 83605; 83690; 83735; 84484; 85025; 85055; 93005; 96361; 96365; 96366; 96376; 97162; 97165; 97530; 99285; A9270; G0378; J1815; J3475; J7030; Q9967

== ENCOUNTER 2020-12-15 14:37 | Observation (INO) | payer MEDICARE, SELFPAY ==
[2020-12-15] VITALS (27 sets, daily range): BP systolic 117–149; BP diastolic 55–72; PULSE 86–107; RESP 12–21; TEMP 36.4–36.6; O2SAT 96–100; BMI 27.4
--- NOTE | ~2020-12-15 | XR_ITS ---
EXAMINATION: XR chest 2V 12/15/2020 15:19 INDICATION: Weakness for 4 months PROCEDURE: 2 view chest COMPARISON: Comparison to multiple prior studies sequentially, with oldest reviewed study dated 11/05. FINDINGS: The lungs are clear. The cardiomediastinal silhouette is within normal limits. There are no pleural effusions. There is no pneumothorax suspected. IMPRESSION: 1: NO ACUTE CARDIOPULMONARY DISEASE. Reviewed, dictated and finalized at location A.
--- NOTE | 2020-12-15 14:47 | ECG_ITS ---
Measurements Intervals [place] Rate: 95 P: 49 HI: 143 QRS: 25 QRSD: 71 T: 63 QT: 337 QTc: 425 Interpretive Statements SINUS RHYTHM MINIMAL Q WAVES- INFERIOR LEADS BORDERLINE ST-T WAVE ABNORMALITY- HIGH LATERAL LEADS BORDERLINE ECG Electronically Signed On 12-15-2020 16:05:27 CDT by Aristides Kent D.O.
[2020-12-15 15:13] LABS: Basophils Absolute Auto 0.1 K/mm3 (0.0-0.1); Basophils Percent Auto 0.8 % (0.2-1.2); Eosinophils Absolute Auto 0.1 K/mm3 (0-0.3); Hemoglobin 11.4 g/dL (12.0-15.0); Immature Granulocyte Absolute 0.04 K/mm3 (0.00-0.031); Immature Granulocyte Percent A 0.4 % (0-0.5); Lymphocytes Absolute Auto 1.58 K/mm3 (0.9-3.2); Lymphocytes Percent Auto 16.8 % (18.3-44.2); Mean Corpuscular HGB Conc 33.5 g/dl (32-36); Mean Corpuscular Hemoglobin 28.1 pg (26-34); Mean Corpuscular Volume 83.7 fl (80-100); Mean Platelet Volume 9.8 fl (7.4-10.4); Monocytes Absolute Auto 0.9 K/mm3 (0.1-0.6); Monocytes Percent Auto 9.4 % (2.6-8.5); Neutrophils Absolute Auto 6.8 K/mm3 (1.3-6.7); Neutrophils Percent Auto 71.6 % (45.5-73.1); Platelet Count Result 388 k/mm3 (150-375); Red Blood Count 4.06 M/mm3 (4.2-5.4); Red Cell Distribution Width 14.1 % (11.5-14.5); White Blood Count 9.4 K/mm3 (4.5-10.0)
[2020-12-15 15:29] LABS: Magnesium 1.4 mg/dL (1.6-2.3)
[2020-12-15 16:28] LABS: Alanine Aminotransferase 14 U/L (4-35); Albumin Level 4.5 g/dL (3.5-5.1); Alkaline Phosphatase 59 U/L (38-126); Anion Gap 14 mmol/L (8-16); Aspartate Amino Transferase 25 U/L (14-36); Bilirubin,Total 0.3 mg/dL (0.2-1.3); Blood Urea Nitrogen 27 mg/dL (7-17); Calcium 10.3 mg/dL (8.4-10.2); Carbon Dioxide 21 mmol/L (22-30); Chloride 96 mmol/L (98-107); Estimated Glomerular Filt Rate 40; Glucose 112 mg/dL (65-110); Potassium 4.5 mmol/L (3.4-5.0); Sodium 131 mmol/L (137-145)
[2020-12-15 16:44] LABS: Add Urine Microscopic? YES; Appearance Urine Clear (Clear); Bacteria Urine Trace /hpf; Bilirubin Urine Negative (Negative); Blood Urine Negative (Negative); Color Urine Yellow (Yellow); Glucose Urine UA Negative (Negative); Ketones Urine Trace mg/dL (Negative); Leukocyte Esterase Ur Trace LEU/UL (Negative); Mucus Urine Rare /lpf; Nitrate Urine Negative (Negative); Protein Urine 1+ mg/dL (Negative); RBC Urine 0-2 /hpf (0-2); Specific Grav Ur 1.021 (1.001-1.035); Squamous Epithelial Cell Urine Few /hpf (Few); Urobilinogen Urine Negative mg/dL (<2.0)
[2020-12-15] MEDS: SODIUM CHLORIDE 0.9% IV 1,000 ML 999 ML IV CONT (17:35)
[2020-12-15] MEDS: ONDANSETRON INJ 4 MG/2 ML VIAL IV PUSH (17:35)
[2020-12-15] MEDS: FAMOTIDINE 20 MG/2 ML VIAL IV PUSH (17:35)
--- NOTE | 2020-12-15 17:46 | ED.GENADULT ---
HPI - General Adult General Chief complaint: Weakness Stated complaint: ABNORMAL LABS Time Seen by Provider: 12/15/20 16:36 Source: patient, family, RN notes reviewed and old records reviewed Mode of arrival: ambulatory Limitations: no limitations History of Present Illness HPI narrative: Patient 75-year-old female who presents after nausea vomiting this morning with weakness that has worsened over the last week patient had had recent hospitalization for dehydration low magnesium. Patient on arrival to emergency department is in the room in no distress resting comfortably in the bed denying any pain lives at home with her son denies diarrhea rectal bleeding melena urinary symptoms or any injury or trauma Related Data Home Medications Medication Instructions Recorded Confirmed atorvastatin 20 mg tablet 20 mg PO DAILY 11/18/20 12/14/20 clopidogrel 75 mg tablet 75 mg PO DAILY 11/18/20 12/14/20 ferrous sulfate 325 mg (65 mg 325 mg PO BID 11/18/20 12/14/20 iron) tablet aspirin 81 mg PO DAILY 12/05/20 12/14/20 insulin glargine 100 unit/mL 20 unit SUBCUT DAILY ml 12/14/20 12/14/20 subcutaneous solution magnesium oxide 800 mg PO BID 12/15/20 Allergies Allergy/AdvReac Type Severity Reaction Status Date / Time Sulfa (Sulfonamide Allergy Intermediate RASH,HIVE Verified 12/15/20 16:37 Antibiotics) codeine AdvReac Intermediate VOMITING Verified 12/15/20 16:37 AND MIGRAINES fentanyl AdvReac Intermediate MIGRAINE,VO Verified 12/15/20 16:37 MITING hydrocodone AdvReac Intermediate MIGRAINE,VO Verified 12/15/20 16:37 MITING lisinopril AdvReac Intermediate COUGH Verified 12/15/20 16:37 metoprolol AdvReac Intermediate migraines,v Verified 12/15/20 16:37 omiting Fyeroao-Eup-Aca Reductase AdvReac Intermediate MIGRAINE,VO Verified 12/15/20 16:37 Inhibitor MITING belladonna alkaloids AdvReac Mild MIGRAINE,VO Verified 12/15/20 16:37 MITING cephalexin AdvReac Mild Vomiting Verified 12/15/20 16:37 phenobarbital AdvReac Mild MIGRAINES,V Verified 12/15/20 16:37 OMITING morphine AdvReac Unknown MIGRAINE,VO Verified 12/15/20 16:37 MITING Review of Systems Review of Systems: All systems reviewed & are unremarkable except as noted in HPI and below PMFSH Past Medical History Medical History Chronic pruritus CVA (cerebral vascular accident) Diabetes DM w/o complication type II, uncontrolled Hyperlipidemia Hypertension Medial epicondylitis of right elbow Uterine cancer Surgical History Surgical History H/O: hysterectomy Family History Family History Father Family history of blood dyscrasia Family history of Alzheimer's disease Family history of macular degeneration Mother Family history of chronic obstructive pulmonary disease Family history of coronary artery disease Family history of malignant neoplasm of esophagus Grandparent Carcinoma of colon Sibling Family history of type 2 diabetes mellitus Other Family history of malignant neoplasm of breast Social History Social History Social History: patient recently had a stroke about a month ago and was at [place] for last week and half. When she leaves here she is going to move in with her son Chin in [place]. her son Chin Resendez will be her surrogate and patient wishes to be a full code. Currently patient lives with no other pets Smoking status: Never smoker Second hand tobacco smoke exposure: Yes Alcohol intake: former Alcohol use details: Social Substance use: never Gender identity (if verbalized by the patient): Female Spiritual care concerns: No Exam Narrative: Exam Narrative: GENERAL: Well-appearing, well-nourished, and in no acute distress. HEAD: Normocephalic,
[2020-12-15] MEDS: SODIUM CHLORIDE 0.9% IV 500 ML 999 ML IV CONT (18:02)
[2020-12-15] MEDS: MAGNESIUM SULF 2 GM/WATER 50ML 2 GM/50 ML BAG IVPB (18:03)
--- NOTE | 2020-12-15 20:45 | PM.IMHP ---
H&P: HPI History of Present Illness Date/Time: 12/15/20 20:45 Chief Complaint: Weakness. Narrative: This is a 75-year-old with history of stroke, hypertension, hyperlipidemia, and type 2 diabetes mellitus presented to the emergency department earlier today via private vehicle from home accompanied by her son for evaluation of weakness. She was recently admitted to the hospital on 12/05/2020 for 2 nights after presenting with tachycardia. She was in sinus rhythm a majority of her stay but did have some episodes of sinus tachycardia; no evidence of atrial fibrillation. Her magnesium was low and was replaced several times, in fact she was sent home on magnesium oxide. She apparently has been doing okay at home although family members report she has gotten progressively more weak with increasing dependence on others for ADLs. Today she was nauseated and had several episodes of emesis thus her family brought her in for evaluation. She looks a bit dry on labs with some mild electrolyte derangements and an increase in BUN and creatinine from baseline; she is being admitted in this setting. Family members are not certain they will be able to care for her at home and she may need rehab or placement on discharge. At the time my evaluation she is feeling a bit better and is actually asking for some food. She denies fever, chills, sweats, cold and flu symptoms, chest pain, shortness of breath, abdominal pain, diarrhea, constipation, dysuria. Review of Systems Review of Systems: Narrative: Twelve systems were reviewed with pertinent positives and negatives as per HPI. Except as documented, all other systems were reviewed and are negative. [facility], [facility] Past Medical History Medical History Chronic anemia Chronic pruritus CVA (cerebral vascular accident) Diabetes DM w/o complication type II, uncontrolled Hyperlipidemia Hypertension Medial epicondylitis of right elbow Uterine cancer Surgical History Surgical History H/O: hysterectomy Family History Family History Father Family history of blood dyscrasia Family history of Alzheimer's disease Family history of macular degeneration Mother Family history of chronic obstructive pulmonary disease Family history of coronary artery disease Family history of malignant neoplasm of esophagus Grandparent Carcinoma of colon Sibling Family history of type 2 diabetes mellitus Other Family history of malignant neoplasm of breast Social History Social History Social History: patient recently had a stroke about a month ago and was at [place] for last week and half. When she leaves here she is going to move in with her son Chin in [place]. her son Chin Resendez will be her surrogate and patient wishes to be a full code. Currently patient lives with no other pets Smoking status: Never smoker Second hand tobacco smoke exposure: Yes Alcohol intake: never Alcohol use details: Social Substance use: never Gender identity (if verbalized by the patient): Female Spiritual care concerns: No Meds Home Medications and Allergies Home Medications Medication Instructions Recorded Confirmed Type blood sugar diagnostic #200 ea 03/31/20 12/15/20 Rx ezetimibe 10 mg tablet 10 mg PO DAILY #90 tablet 09/14/20 12/15/20 Rx atorvastatin 20 mg tablet 20 mg PO DAILY 11/18/20 12/15/20 History clopidogrel 75 mg tablet 75 mg PO DAILY 11/18/20 12/15/20 History ferrous sulfate 325 mg (65 mg 325 mg PO BID 11/18/20 12/15/20 History iron) tablet sitagliptin 50 mg-metformin 1,000 1 tablet PO BID #60 tablet 11/18/20 12/15/20 Rx mg tablet aspirin 81 mg PO DAILY 12/05/20 12/15/20 History amlodipine 5 mg tablet 5 mg PO DAILY #90 tablet 12/14/20 12/15/20 Rx fluoxetine 20 mg cap
--- NOTE | 2020-12-15 22:06 | ADMGEN ---
This patient, Shandra iWlson, was admitted to Medical Room 250-01. Patient/family oriented to hospital policies and general routines including ID bracelet, bed and alarms, visiting hours, pain management, procedures, bathroom and other care routines, personal items, smoking policy, room service/diet, and visiting hours. Information on how to activate the Rapid Response Team has been discussed. Patient/Family are encouraged to report perceived risks to care and to ask questions if they do not understand what they are told or what they should do.
[2020-12-15] MEDS: LACTATED RINGERS 1,000 ML 75 ML IV CONT (22:31)
[2020-12-16 00:52] LABS: Glucose Point of Care 160 mg/dl (65-105)
[2020-12-16 05:41] LABS: Basophils Absolute Auto 0.1 K/mm3 (0.0-0.1); Basophils Percent Auto 1.3 % (0.2-1.2); Eosinophils Absolute Auto 0.1 K/mm3 (0-0.3); Eosinophils Percent Auto 1.7 % (0-4.4); Hematocrit 31.3 % (37.0-47.0); Immature Granulocyte Absolute 0.02 K/mm3 (0.00-0.031); Immature Granulocyte Percent A 0.4 % (0-0.5); Lymphocytes Absolute Auto 1.55 K/mm3 (0.9-3.2); Lymphocytes Percent Auto 29.8 % (18.3-44.2); Mean Corpuscular HGB Conc 31.9 g/dl (32-36); Mean Corpuscular Hemoglobin 27.9 pg (26-34); Mean Corpuscular Volume 87.4 fl (80-100); Mean Platelet Volume 9.6 fl (7.4-10.4); Monocytes Absolute Auto 0.5 K/mm3 (0.1-0.6); Monocytes Percent Auto 10.4 % (2.6-8.5); Neutrophils Absolute Auto 2.9 K/mm3 (1.3-6.7); Neutrophils Percent Auto 56.4 % (45.5-73.1); Platelet Count Result 282 k/mm3 (150-375); Red Blood Count 3.58 M/mm3 (4.2-5.4); Red Cell Distribution Width 13.9 % (11.5-14.5); White Blood Count 5.2 K/mm3 (4.5-10.0)
[2020-12-16 05:50] LABS: Anion Gap 11 mmol/L (8-16); Blood Urea Nitrogen 19 mg/dL (7-17); Calcium 9.4 mg/dL (8.4-10.2); Carbon Dioxide 21 mmol/L (22-30); Chloride 104 mmol/L (98-107); Estimated Glomerular Filt Rate 54; Glucose 113 mg/dL (65-110); Magnesium 1.7 mg/dL (1.6-2.3); Potassium 4.1 mmol/L (3.4-5.0); Sodium 136 mmol/L (137-145)
[2020-12-16 06:00] VITALS: BP 134/63; PULSE 100; RESP 16; TEMP 36.6; O2SAT 96
[2020-12-16 08:28] LABS: Glucose Point of Care 144 mg/dl (65-105)
[2020-12-16] MEDS: hydrALAZINE HCL 25 MG TABLET 75 MG PO ×2 (08:49→17:34)
[2020-12-16] MEDS: ASPIRIN 81 MG CHEWABLE TABLET PO (08:49)
[2020-12-16] MEDS: metFORMIN HCL 500 MG TABLET 1000 MG PO ×2 (08:50→17:34)
[2020-12-16] MEDS: amLODIPine BESYLATE 5 MG TABLET PO (08:51)
[2020-12-16] MEDS: ATORVASTATIN 20 MG TABLET PO (08:51)
[2020-12-16] MEDS: MAGNESIUM OXIDE 400 MG TABLET PO ×2 (08:52→17:34)
[2020-12-16] MEDS: EZETIMIBE 10 MG TABLET PO (08:52)
[2020-12-16] MEDS: LOSARTAN POTASSIUM 100 MG TABLET PO (08:52)
[2020-12-16] MEDS: PANTOPRAZOLE 40 MG TABLET PO ×2 (08:52→17:39)
[2020-12-16] MEDS: CLOPIDOGREL BISULFATE 75 MG TABLET PO (08:52)
[2020-12-16] MEDS: FLUoxetine HCL 20 MG CAPSULE PO (08:53)
[2020-12-16] MEDS: FAMOTIDINE 20 MG/2 ML VIAL IV PUSH ×2 (08:56→20:05)
[2020-12-16 11:43] VITALS: BMI 27.4
--- NOTE | 2020-12-16 12:09 | PCNSR ---
On 12/16/20, the student,Blanca Taylor , provided care and [facility]. I have reviewed the student's documentation and agree with the findings.
[2020-12-16] MEDS: FERROUS SULFATE 324 MG TABLET PO ×2 (12:15→17:34)
[2020-12-16] MEDS: LACTATED RINGERS 1,000 ML 75 ML IV CONT (12:25)
[2020-12-16 12:34] LABS: Glucose Point of Care 153 mg/dl (65-105)
[2020-12-16 14:00] VITALS: BP 122/50; PULSE 96; RESP 18; TEMP 36.4; O2SAT 100
--- NOTE | 2020-12-16 15:24 | P.PNIM_ITS ---
Progress Note: A&P Assessment and Plan (1) Acute kidney injury: Code(s): N17.9 - Acute kidney failure, unspecified Status: Acute Assessment and Plan: * Presented with nausea vomiting weakness. * could be due to dehydration * or large fluid loss from vomiting * Patient's creatinine upon arrival was 1.3. Patient was administered IV fluids fluids which brought her creatinine down to 1 today. * Patient has good skin turgor * sodium was 136 potassium is 4.1 * BUN and creatinine are 19/1 * will trend labs * labs in the morning (2) Dehydration: Code(s): E86.0 - Dehydration Status: Acute Assessment and Plan: * Presented with nausea vomiting weakness. * Patient's creatinine upon arrival was 1.3. Patient was administered IV fluids fluids which brought her creatinine down to 1 today. * Patient has good skin turgor * sodium was 136 potassium is 4.1 * BUN and creatinine are 19/1 * will trend labs * labs in the morning (3) Hypomagnesemia: Code(s): E83.42 - Hypomagnesemia Status: Acute Assessment and Plan: * magnesium a upon arrival was 1.4. * Patient was given 2 g in the ED * Mag oxide 400 mg p.o. b.i.d. continue from home * trend magnesium * magnesium 1.7 today * replace as needed (4) Weakness: Code(s): R53.1 - Weakness Status: Acute Assessment and Plan: * PT/OT (5) Type 2 diabetes mellitus: Code(s): E11.9 - Type 2 diabetes mellitus without complications Status: Acute Assessment and Plan: * Glucose 113 * Accu-Chek AC and HS * continue metformin 1000 mg p.o. b.i.d. * carb consistent diet * insulin sliding-scale * trend labs * labs in a.m. (6) Chronic anemia: Code(s): D64.9 - Anemia, unspecified Status: Acute Assessment and Plan: * H&H is 03/21.3 * MCV is 87.4 * anemia labs will be ordered in the morning * ferrous sulfate 324 mg p.o. b.i.d. * trend labs * labs in a.m. (7) Hypertension: Code(s): I10 - Essential (primary) hypertension Status: Acute Assessment and Plan: * blood pressure 134/63 * continue amlodipine 5 mg p.o. daily, hydralazine 75 mg p.o. daily, losartan and 100 mg p.o. daily * trend blood pressure * adjust medications as needed Subjective Date/time seen: 12/16/20 10:00 Interval history: This is a 75-year-old with history of stroke, hypertension, hyperlipidemia, and type 2 diabetes mellitus presented to the emergency department earlier today via private vehicle from home accompanied by her son for evaluation of weakness. patient stated she is feeling better and that she would like to go home. Patient stated that she has some spaghetti that did not agree with her and she vomited just 1 time. She denies chest pain and palpitations, and vomiting nausea, sweats chills and fevers. Patient also stated that she has been having a hard time getting with rehab that they come and then the return. She is getting around well according to her. I also had a long conversation with the son about her labs currently. I also talked to him about her magnesium level which was 1.4 upon arrival and is 1.7 to day. The son really feels like the patient was dehydrated upon arrival however her creatinine was only 1.3 it is 1 today which is her baseline. I also explained to the patient's son that I think the patient is depressed. Patient's son did sa
--- NOTE | 2020-12-16 15:24 | PM.IMPN ---
Progress Note: A&P Assessment and Plan (1) Acute kidney injury: Code(s): N17.9 - Acute kidney failure, unspecified Status: Acute Assessment and Plan: Presented with nausea vomiting weakness. could be due to dehydration or large fluid loss from vomiting Patient's creatinine upon arrival was 1.3. Patient was administered IV fluids fluids which brought her creatinine down to 1 today. Patient has good skin turgor sodium was 136 potassium is 4.1 BUN and creatinine are 19/1 will trend labs labs in the morning (2) Dehydration: Code(s): E86.0 - Dehydration Status: Acute Assessment and Plan: Presented with nausea vomiting weakness. Patient's creatinine upon arrival was 1.3. Patient was administered IV fluids fluids which brought her creatinine down to 1 today. Patient has good skin turgor sodium was 136 potassium is 4.1 BUN and creatinine are 19/1 will trend labs labs in the morning (3) Hypomagnesemia: Code(s): E83.42 - Hypomagnesemia Status: Acute Assessment and Plan: magnesium a upon arrival was 1.4. Patient was given 2 g in the ED Mag oxide 400 mg p.o. b.i.d. continue from home trend magnesium magnesium 1.7 today replace as needed (4) Weakness: Code(s): R53.1 - Weakness Status: Acute Assessment and Plan: PT/OT (5) Type 2 diabetes mellitus: Code(s): E11.9 - Type 2 diabetes mellitus without complications Status: Acute Assessment and Plan: Glucose 113 Accu-Chek AC and HS continue metformin 1000 mg p.o. b.i.d. carb consistent diet insulin sliding-scale trend labs labs in a.m. (6) Chronic anemia: Code(s): D64.9 - Anemia, unspecified Status: Acute Assessment and Plan: H&H is 03/21.3 MCV is 87.4 anemia labs will be ordered in the morning ferrous sulfate 324 mg p.o. b.i.d. trend labs labs in a.m. (7) Hypertension: Code(s): I10 - Essential (primary) hypertension Status: Acute Assessment and Plan: blood pressure 134/63 continue amlodipine 5 mg p.o. daily, hydralazine 75 mg p.o. daily, losartan and 100 mg p.o. daily trend blood pressure adjust medications as needed Subjective Date/time seen: 12/16/20 10:00 Interval history: This is a 75-year-old with history of stroke, hypertension, hyperlipidemia, and type 2 diabetes mellitus presented to the emergency department earlier today via private vehicle from home accompanied by her son for evaluation of weakness. patient stated she is feeling better and that she would like to go home. Patient stated that she has some spaghetti that did not agree with her and she vomited just 1 time. She denies chest pain and palpitations, and vomiting nausea, sweats chills and fevers. Patient also stated that she has been having a hard time getting with rehab that they come and then the return. She is getting around well according to her. I also had a long conversation with the son about her labs currently. I also talked to him about her magnesium level which was 1.4 upon arrival and is 1.7 today. The son really feels like the patient was dehydrated upon arrival however her creatinine was only 1.3 it is 1 today which is her baseline. I also explained to the patient's son that I think the patient is depressed. Patient's son did say that the patient talk to Dr. Dawson about this depression however the patient denied being depressed. I signed the son that most people denies serving that they are depressed however with her background and the symptoms are telling me it sounds that she might just be depressed. He also brought up the fact that the patient was having issues with anemia and did have cancer in the past and had her uterus taken out which was months before her stroke. This explained that he is working on a diet with her and has be
[2020-12-16 18:00] LABS: Glucose Point of Care 100 mg/dl (65-105)
[2020-12-16 20:00] VITALS: PULSE 96; RESP 18; O2SAT 100
[2020-12-16 20:35] LABS: Glucose Point of Care 174 mg/dl (65-105)
[2020-12-16 22:00] VITALS: BP 135/56; PULSE 97; RESP 18; TEMP 37.2; O2SAT 99
[2020-12-17] MEDS: LACTATED RINGERS 1,000 ML 75 ML IV CONT (01:20)
[2020-12-17 05:50] VITALS: BP 153/71; PULSE 67; RESP 16; TEMP 36.4; O2SAT 98
[2020-12-17 07:58] LABS: Glucose Point of Care 139 mg/dl (65-105)
[2020-12-17] MEDS: LOSARTAN POTASSIUM 100 MG TABLET PO (08:34)
[2020-12-17] MEDS: ATORVASTATIN 20 MG TABLET PO (08:34)
[2020-12-17] MEDS: ASPIRIN 81 MG CHEWABLE TABLET PO (08:34)
[2020-12-17] MEDS: FLUoxetine HCL 20 MG CAPSULE PO (08:34)
[2020-12-17] MEDS: MAGNESIUM OXIDE 400 MG TABLET PO ×2 (08:34→17:00)
[2020-12-17] MEDS: FAMOTIDINE 20 MG/2 ML VIAL IV PUSH (08:34)
[2020-12-17 08:35] VITALS: RESP 16; O2SAT 97
[2020-12-17] MEDS: metFORMIN HCL 500 MG TABLET 1000 MG PO ×2 (08:35→17:00)
[2020-12-17] MEDS: amLODIPine BESYLATE 5 MG TABLET PO (08:35)
[2020-12-17] MEDS: EZETIMIBE 10 MG TABLET PO (08:35)
[2020-12-17] MEDS: PANTOPRAZOLE 40 MG TABLET PO ×2 (08:35→17:01)
[2020-12-17] MEDS: CLOPIDOGREL BISULFATE 75 MG TABLET PO (08:35)
[2020-12-17] MEDS: hydrALAZINE HCL 25 MG TABLET 75 MG PO ×2 (08:36→16:59)
[2020-12-17 08:56] LABS: Hematocrit 32.2 % (37.0-47.0); Mean Corpuscular HGB Conc 34.2 g/dl (32-36); Mean Corpuscular Hemoglobin 28.6 pg (26-34); Mean Corpuscular Volume 83.9 fl (80-100); Mean Platelet Volume 9.7 fl (7.4-10.4); Platelet Count Result 304 k/mm3 (150-375); Red Blood Count 3.84 M/mm3 (4.2-5.4); Red Cell Distribution Width 13.9 % (11.5-14.5); White Blood Count 5.6 K/mm3 (4.5-10.0)
[2020-12-17 09:14] LABS: Lactate Dehydrogenase 314 U/L (313-618)
[2020-12-17 09:15] LABS: Iron 53 ug/dL (37-170)
[2020-12-17 09:23] LABS: Transferrin 216 mg/dL (206-381)
[2020-12-17 09:26] LABS: Percent Iron Saturation 18 % (20-50)
[2020-12-17 10:30] LABS: Alanine Aminotransferase 11 U/L (4-35); Alkaline Phosphatase 51 U/L (38-126); Anion Gap 11 mmol/L (8-16); Aspartate Amino Transferase 19 U/L (14-36); Bilirubin,Total 0.4 mg/dL (0.2-1.3); Blood Urea Nitrogen 11 mg/dL (7-17); Carbon Dioxide 26 mmol/L (22-30); Chloride 100 mmol/L (98-107); Estimated Glomerular Filt Rate 54; Glucose 145 mg/dL (65-110); Magnesium 1.1 mg/dL (1.6-2.3); Sodium 137 mmol/L (137-145)
[2020-12-17 10:42] VITALS: O2SAT 98
[2020-12-17 11:31] LABS: Glucose Point of Care 158 mg/dl (65-105)
[2020-12-17] MEDS: FERROUS SULFATE 324 MG TABLET PO ×2 (11:37→16:59)
[2020-12-17 14:00] VITALS: BP 143/53; PULSE 103; RESP 18; TEMP 36.7; O2SAT 100
[2020-12-17] MEDS: MAGNESIUM SULF 4 GM/WATER100ML 4 GM/100 ML BAG IVPB (14:30)
--- NOTE | 2020-12-17 14:50 | P.DS_ITS ---
DS: Admitting Diagnosis Admitting Diagnosis acute kidney injury DS: Discharge Diagnosis Discharge Diagnosis (1) Acute kidney injury: Code(s): N17.9 - Acute kidney failure, unspecified Status: Acute Assessment and Plan: * Presented with nausea vomiting weakness. * could be due to dehydration * or large fluid loss from vomiting * Patient's creatinine upon arrival was 1.3. Patient was administered IV fluids fluids which brought her creatinine down to 1 today. * Patient has good skin turgor * sodium was 137 potassium is 4.0 * BUN and creatinine are 11/1 * will trend labs * labs in the morning Labs are stable (2) Dehydration: Code(s): E86.0 - Dehydration Status: Acute Assessment and Plan: * Presented with nausea vomiting weakness. * Patient's creatinine upon arrival was 1.3. Patient was administered IV fluids fluids which brought her creatinine down to 1 today. * Patient has good skin turgor * sodium was 136 potassium is 4.1 * BUN and creatinine are 19/1 * will trend labs * labs in the morning (3) Hypomagnesemia: Code(s): E83.42 - Hypomagnesemia Status: Acute Assessment and Plan: * magnesium a upon arrival was 1.4. * Patient was given 2 g in the ED * Mag oxide 400 mg p.o. b.i.d. continue from home * trend magnesium * magnesium 1.7 today * replace as needed (4) Weakness: Code(s): R53.1 - Weakness Status: Acute Assessment and Plan: * PT/OT (5) Type 2 diabetes mellitus: Code(s): E11.9 - Type 2 diabetes mellitus without complications Status: Acute Assessment and Plan: * Glucose 113 * Accu-Chek AC and HS * continue metformin 1000 mg p.o. b.i.d. * carb consistent diet * insulin sliding-scale * trend labs * labs in a.m. (6) Chronic anemia: Code(s): D64.9 - Anemia, unspecified Status: Acute Assessment and Plan: * H&H is 03/21.3 * MCV is 87.4 * anemia labs will be ordered in the morning * ferrous sulfate 324 mg p.o. b.i.d. * trend labs * labs in a.m. (7) Hypertension: Code(s): I10 - Essential (primary) hypertension Status: Acute Assessment and Plan: * blood pressure 134/63 * continue amlodipine 5 mg p.o. daily, hydralazine 75 mg p.o. daily, losartan and 100 mg p.o. daily * trend blood pressure * adjust medications as needed DS: Summary Hospital Course Hospital Course: This is a 75-year-old with history of stroke, hypertension, hyperlipidemia, and type 2 diabetes mellitus presented to the emergency department from home accompanied by her son for evaluation of weakness. Patient has been treated with IV fluids, and was feeling better since moving to her room. Her magnesium has been replaced as well. She also has no complaints at this time. All of her labs have been stable since admission and have remained stable. Patients vital signs have beens stable through this admission as well. I have had long and many conversations with her and her son about her care. The son does understand about a different route to care could be for this patient. Status at Discharge Functional status at discharge: uses cane/walker Overall status at discharge: patient is progressing back to baseline Time Spent with Patient Time attestation: Total time spent providing and/or coordinating discharge services: 48 minutes Time spent: Greater
--- NOTE | 2020-12-17 14:50 | PM.DS ---
DS: Admitting Diagnosis Admitting Diagnosis acute kidney injury DS: Discharge Diagnosis Discharge Diagnosis (1) Acute kidney injury: Code(s): N17.9 - Acute kidney failure, unspecified Status: Acute Assessment and Plan: Presented with nausea vomiting weakness. could be due to dehydration or large fluid loss from vomiting Patient's creatinine upon arrival was 1.3. Patient was administered IV fluids fluids which brought her creatinine down to 1 today. Patient has good skin turgor sodium was 137 potassium is 4.0 BUN and creatinine are 11/1 will trend labs labs in the morning Labs are stable (2) Dehydration: Code(s): E86.0 - Dehydration Status: Acute Assessment and Plan: Presented with nausea vomiting weakness. Patient's creatinine upon arrival was 1.3. Patient was administered IV fluids fluids which brought her creatinine down to 1 today. Patient has good skin turgor sodium was 136 potassium is 4.1 BUN and creatinine are 19/1 will trend labs labs in the morning (3) Hypomagnesemia: Code(s): E83.42 - Hypomagnesemia Status: Acute Assessment and Plan: magnesium a upon arrival was 1.4. Patient was given 2 g in the ED Mag oxide 400 mg p.o. b.i.d. continue from home trend magnesium magnesium 1.7 today replace as needed (4) Weakness: Code(s): R53.1 - Weakness Status: Acute Assessment and Plan: PT/OT (5) Type 2 diabetes mellitus: Code(s): E11.9 - Type 2 diabetes mellitus without complications Status: Acute Assessment and Plan: Glucose 113 Accu-Chek AC and HS continue metformin 1000 mg p.o. b.i.d. carb consistent diet insulin sliding-scale trend labs labs in a.m. (6) Chronic anemia: Code(s): D64.9 - Anemia, unspecified Status: Acute Assessment and Plan: H&H is 03/21.3 MCV is 87.4 anemia labs will be ordered in the morning ferrous sulfate 324 mg p.o. b.i.d. trend labs labs in a.m. (7) Hypertension: Code(s): I10 - Essential (primary) hypertension Status: Acute Assessment and Plan: blood pressure 134/63 continue amlodipine 5 mg p.o. daily, hydralazine 75 mg p.o. daily, losartan and 100 mg p.o. daily trend blood pressure adjust medications as needed DS: Summary Hospital Course Hospital Course: This is a 75-year-old with history of stroke, hypertension, hyperlipidemia, and type 2 diabetes mellitus presented to the emergency department from home accompanied by her son for evaluation of weakness. Patient has been treated with IV fluids, and was feeling better since moving to her room. Her magnesium has been replaced as well. She also has no complaints at this time. All of her labs have been stable since admission and have remained stable. Patients vital signs have beens stable through this admission as well. I have had long and many conversations with her and her son about her care. The son does understand about a different route to care could be for this patient. Status at Discharge Functional status at discharge: uses cane/walker Overall status at discharge: patient is progressing back to baseline Time Spent with Patient Time attestation: Total time spent providing and/or coordinating discharge services: 48 minutes Time spent: Greater than 30 minutes Specific discharge activities: family discussion, lab and result review, diagnostic testing, physical exam, care coordination Exam Const: General: cooperative, healthy appearing, comfortable, no acute distress, well developed, alert, awake and Physically active Nutritional Appearance: well nourished Orientation/consciousness: oriented to person, oriented to place, oriented to time and patient oriented x3 Limitations: no limitations HENMT: Head: normal to inspection Ears: hearing grossly normal bilaterally
--- NOTE | 2020-12-17 15:14 | PCDIET ---
Consult received. Provided information re: high magnesium foods to patient. Spoke with Speedy COOK, re: Protonix which has been reduced from BID to 1x daily. RD contact information provided; will be available for further education, as needed.
[2020-12-17 16:53] LABS: Glucose Point of Care 128 mg/dl (65-105)
== END 2020-12-17 19:05 | disposition home health service (06) ==
LOC: ANHED 19:05 → ANH2MED 12-16 00:18
PROVIDERS: Emergency Medicine Emergency Medical Services; Nurse Practitioner; Admitting Provider Internal Medicine; Emergency Provider Emergency Medicine; PCP Internal Medicine; Visit Provider Internal Medicine
DX: N17.9 Acute kidney failure, unspecified (principal); E86.0 Dehydration; R11.2 Nausea with vomiting, unspecified; R53.1 Weakness; E83.42 Hypomagnesemia; D64.9 Anemia, unspecified; E78.5 Hyperlipidemia, unspecified; E11.9 Type 2 diabetes mellitus without complications; I10 Essential (primary) hypertension; Z85.42 Personal history of malignant neoplasm of other parts of uterus; Z86.73 Personal history of transient ischemic attack (TIA), and cerebral infarction without residual deficits; Z79.4 Long term (current) use of insulin
CPT/HCPCS: 36415; 71046; 80048; 80053; 81001; 82607; 82728; 82746; 82948; 83540; 83550; 83615; 83735; 84443; 84466; 85025; 85027; 93005; 96361; 96365; 96366; 96375; 96376; 97161; 97165; 97535; 99285; A9270; G0378; J2405; J3475; J7030; J7040; J7120

== ENCOUNTER 2020-12-31 15:13 | Outpatient (CLI) | payer MEDICARE, SELFPAY ==
--- NOTE | ~2020-12-31 | US_ITS ---
EXAMINATION: US renal BI DATE: 12/31/2020 15:48 INDICATION: Acute kidney failure, unspecified. TECHNIQUE: Multiple ultrasound grayscale images of the kidneys were obtained. COMPARISON: CT abdomen and pelvis 12/05/2020 FINDINGS: The right kidney measures 9.0 x 4.3 x 4.7 cm. The left kidney measures 9.3 x 4.2 x 4.8 cm. The kidney s demonstrate normal parenchymal echogenicity. There is no hydronephrosis. The bladder is normal. IMPRESSION: 1. Normal kidneys. No hydronephrosis. Reviewed, dictated and finalized at location A.
== END 2020-12-31 15:14 | disposition home or self-care (01) ==
PROVIDERS: PCP Internal Medicine; Visit Provider Nurse Practitioner
DX: N17.9 Acute kidney failure, unspecified (principal); I63.9 Cerebral infarction, unspecified
CPT/HCPCS: 76775

== ENCOUNTER 2021-02-07 12:58 | Emergency (ER) | payer MEDICARE, SELFPAY ==
[2021-02-07 13:29] VITALS: BP 134/61; PULSE 75; RESP 16; TEMP 36.8; O2SAT 99
--- NOTE | 2021-02-07 13:54 | ED.EAR ---
HPI - Ear Problem General Chief complaint: Ear Stated complaint: can't hear on lt ear Time Seen by Provider: 02/07/21 13:55 Source: patient and RN notes reviewed Mode of arrival: ambulatory Limitations: no limitations History of Present Illness HPI Narrative: 75-year-old female presents to the [facility] with complaints of I cannot hear out of my left ear. Denies any earache. No sinus symptoms. No fevers. MD Complaint: decreased hearing Related Data Home Medications Medication Instructions Recorded Confirmed aspirin 81 mg PO DAILY 12/05/20 02/07/21 sodium chloride [Saline Nasal] 1 spray INTRANASAL ONCE 12/15/20 01/04/21 magnesium oxide 400 mg (241.3 mg 400 mg PO TID tablet 12/28/20 02/07/21 magnesium) tablet fluoxetine 20 mg capsule 20 mg PO DAILY 02/02/21 02/07/21 insulin glargine 100 unit/mL 15 unit SUBCUT HS ml 02/02/21 02/07/21 subcutaneous solution omeprazole 40 mg PO BID 02/07/21 02/07/21 Allergies Allergy/AdvReac Type Severity Reaction Status Date / Time Sulfa (Sulfonamide Allergy Intermediate RASH,HIVE Verified 02/07/21 13:53 Antibiotics) codeine AdvReac Intermediate VOMITING Verified 02/07/21 13:53 AND MIGRAINES fentanyl AdvReac Intermediate MIGRAINE,VO Verified 02/07/21 13:53 MITING hydrocodone AdvReac Intermediate MIGRAINE,VO Verified 02/07/21 13:53 MITING lisinopril AdvReac Intermediate COUGH Verified 02/07/21 13:53 metoprolol AdvReac Intermediate migraines,v Verified 02/07/21 13:53 omiting [id number]-Ayz Reductase AdvReac Intermediate MIGRAINE,VO Verified 02/07/21 13:53 Inhibitor MITING belladonna alkaloids AdvReac Mild MIGRAINE,VO Verified 02/07/21 13:53 MITING cephalexin AdvReac Mild Vomiting Verified 02/07/21 13:53 phenobarbital AdvReac Mild MIGRAINES,V Verified 02/07/21 13:53 OMITING morphine AdvReac Unknown MIGRAINE,VO Verified 02/07/21 13:53 MITING Review of Systems Review of Systems: All systems reviewed & are unremarkable except as noted in HPI and below Constitutional: Constitutional: Reports no additional constitutional complaints, Denies chills and Denies fever(s) Eyes: Eyes: Reports no additional eye complaints ENT: Reports as per HPI Comments: Decreased hearing left ear Cardiovascular: Cardiovascular: Reports no additional cardiovascular complaints Respiratory: Respiratory: Reports no additional respiratory complaints Musculoskeletal: Musculoskeletal: Reports no additional musculoskeletal complaints Integumentary/Breasts: Skin/Breast: Reports system reviewed and no additional complaints, except as docu Neurologic: Reports system reviewed and no additional complaints, except as documented Psychiatric: Psychiatric: Reports no additional psychiatric complaints Allergic/Immunologic: Allergic/Immunologic: Reports no additional allergic/immunologic complaints [facility] Past Medical History Medical History Chronic anemia Chronic pruritus CVA (cerebral vascular accident) Diabetes DM w/o complication type II, uncontrolled Hyperlipidemia Hypertension Medial epicondylitis of right elbow Uterine cancer Surgical History Surgical History H/O: hysterectomy Family History Family History Father Family history of blood dyscrasia Family history of Alzheimer's disease Family history of macular degeneration Mother Family history of chronic obstructive pulmonary disease Family history of coronary artery disease Family history of malignant neoplasm of esophagus Grandparent Carcinoma of colon Sibling Family history of type 2 diabetes mellitus Other Family history of malignant neoplasm of breast Social History Social History (Updated 02/07/21 @ 19:03 by Wanda Thomas) Social History: patient recently had a stroke 10/09 and was at [facility] for last week and half.
== END 2021-02-07 14:18 | disposition home or self-care (01) ==
PROVIDERS: Emergency Provider Nurse Practitioner; PCP Internal Medicine
DX: H61.22 Impacted cerumen, left ear (principal); E11.9 Type 2 diabetes mellitus without complications; I10 Essential (primary) hypertension; E78.5 Hyperlipidemia, unspecified; Z86.73 Personal history of transient ischemic attack (TIA), and cerebral infarction without residual deficits; Z79.82 Long term (current) use of aspirin; Z79.4 Long term (current) use of insulin
CPT/HCPCS: 69209; 99213; G0463

== ENCOUNTER 2021-03-12 18:50 | Emergency (ER) | payer MEDICARE, SELFPAY ==
--- NOTE | ~2021-03-12 | CT_ITS ---
EXAMINATION: CT brain wo con INDICATION: Right-sided facial droop COMPARISON: 12/05/2020 TECHNIQUE: Standard unenhanced head CT. The dose-length product (DLP) was 681.00 mGy-cm. The mA was a djusted according to patient size. Iterative reconstruction technique was employed. FINDINGS: There is no acute intraparenchymal hemorrhage. No evidence of mass lesion. No evidence of a cute infarction. There is encephalomalacia in the left caudate and left insular cortex, the left temp oral and occipital lobes, and the left neto and midbrain, consistent with prior infarct There is mild periventricular and subcortical hypodensity probably related to small vessel ischemic disease. There is mild prominence of the sulci and ventricles related to cerebral atrophy. Intracranial calcified c erebral atherosclerosis is noted. There are no extra-axial collections. There is no mass effect or mi dline shift. The orbits and soft tissues are unremarkable. The visualized sinuses and mastoid air landen ls are well aerated. IMPRESSION: 1. Areas of prior infarction without definite acute intracranial abnormality. 2. Age related findings. As per stroke protocol, I called these results to the Emergency Department, and discussed with Dr. Stephanie Lee DO at 1915 hours on 03/12/2021. Reviewed, dictated and finalized at location A. IMPRESSION: 1. Areas of prior infarction without definite acute intracranial abnormality. 2. Age related findings. As per stroke protocol, I called these results to the Emergency Department, and discussed with Dr. Amarjit Lee DO at 1915 hours on 03/12/2021.
--- NOTE | 2021-03-12 19:09 | ED.GENADULT ---
HPI - General Adult General Chief complaint: Suspected CVA Stated complaint: AMB Source: patient and EMS Mode of arrival: EMS History of Present Illness HPI narrative: Shandra is a 75F with a PMH of HTN, HLD, mood disorder and a previous CVA 5 months ago (residual aphasia and left sided ataxia) that presented to the ED via ems with possible CVA. She started feeling a weird sensation in her head and face 7 hours ago and an hour ago her family noticed some right sided facial droop. She has no last known normal by others and she last felt normal 7 hours ago. Related Data Home Medications Medication Instructions Recorded Confirmed aspirin 81 mg PO DAILY 12/05/20 03/12/21 sodium chloride [Saline Nasal] 1 spray INTRANASAL ONCE 12/15/20 03/12/21 magnesium oxide 400 mg (241.3 mg 400 mg PO TID tablet 12/28/20 03/12/21 magnesium) tablet fluoxetine 20 mg capsule 20 mg PO DAILY 02/02/21 03/12/21 omeprazole 40 mg PO BID 02/07/21 03/12/21 insulin glargine 100 unit/mL 18 unit SUBCUT HS ml 02/22/21 03/12/21 subcutaneous solution Allergies Allergy/AdvReac Type Severity Reaction Status Date / Time Sulfa (Sulfonamide Allergy Intermediate RASH,HIVE Verified 02/07/21 13:53 Antibiotics) codeine AdvReac Intermediate VOMITING Verified 02/07/21 13:53 AND MIGRAINES fentanyl AdvReac Intermediate MIGRAINE,VO Verified 02/07/21 13:53 MITING hydrocodone AdvReac Intermediate MIGRAINE,VO Verified 02/07/21 13:53 MITING lisinopril AdvReac Intermediate COUGH Verified 02/07/21 13:53 metoprolol AdvReac Intermediate migraines,v Verified 02/07/21 13:53 omiting belladonna alkaloids AdvReac Mild MIGRAINE,VO Verified 02/07/21 13:53 MITING cephalexin AdvReac Mild Vomiting Verified 02/07/21 13:53 phenobarbital AdvReac Mild MIGRAINES,V Verified 02/07/21 13:53 OMITING morphine AdvReac Unknown MIGRAINE,VO Verified 02/07/21 13:53 MITING Review of Systems Constitutional: Constitutional: Reports no additional constitutional complaints Eyes: Eyes: Reports no additional eye complaints ENT: Reports system reviewed and no additional complaints, except as documented Cardiovascular: Cardiovascular: Reports no additional cardiovascular complaints Respiratory: Respiratory: Reports no additional respiratory complaints Gastrointestinal: Gastrointestinal: Reports no additional gastrointestinal complaints Genitourinary: Genitourinary: Reports no additional female genitourinary complaints Musculoskeletal: Musculoskeletal: Reports no additional musculoskeletal complaints Integumentary/Breasts: Skin/Breast: Reports system reviewed and no additional complaints, except as docu Neurologic: Reports as per HPI Psychiatric: Psychiatric: Reports no additional psychiatric complaints Endocrine: Endocrine: Reports no additional endocrine complaints Hematologic/Lymphatic: Hematologic/Lymphatic: Reports no additional hematologic/lymphatic complaints Allergic/Immunologic: Allergic/Immunologic: Reports no additional allergic/immunologic complaints [facility] Past Medical History Medical History Aphasia Chronic anemia Chronic pruritus CVA (cerebral vascular accident) Diabetes 02/02/21 A1C = 6.6 DM w/o complication type II, uncontrolled Hyperlipidemia Hypertension Medial epicondylitis of right elbow Uterine cancer Surgical History Surgical History H/O arthroscopic knee surgery bilateral - over 10 years ago, per pt H/O: hysterectomy Family History Family History Father Family history of blood dyscrasia Family history of Alzheimer's disease Family history of macular degeneration Mother Family history of chronic obstructive pulmonary disease Family history of coronary artery disease Family history of malignant neoplasm of esophagus Grandparent Carcinoma of
[2021-03-12 19:10] VITALS: BP 149/65; PULSE 69; RESP 14
[2021-03-12 19:25] VITALS: BP 149/68; PULSE 69; RESP 14; TEMP 36.3; O2SAT 97
--- NOTE | 2021-03-12 19:31 | ECG_ITS ---
Measurements Intervals [place] Rate: 76 P: 54 UT: 165 QRS: 12 QRSD: 79 T: 34 QT: 394 QTc: 444 Interpretive Statements SINUS RHYTHM BASELINE WANDER- V4-V5 NORMAL ECG Electronically Signed On 03-14-2021 22:36:14 CDT by Aristides Kent D.O.
[2021-03-12 19:54] LABS: Basophils Absolute Auto 0.05 K/mm3 (0.00-0.10); Basophils Percent Auto 0.6 % (0.0-1.0); Eosinophils Absolute Auto 0.18 K/mm3 (0.02-0.50); Eosinophils Percent Auto 2.1 % (1.0-6.0); Hematocrit 34.2 % (35.0-42.0); Hemoglobin 11.3 g/dL (11.7-13.8); Immature Granulocyte Absolute 0.03 K/mm3 (0.00-0.00); Immature Granulocyte Percent A 0.4 % (0.0-0.0); Lymphocytes Absolute Auto 2.14 K/mm3 (1.10-4.50); Lymphocytes Percent Auto 25.2 % (18.0-42.0); Mean Corpuscular Hemoglobin 27.6 pg (27.0-31.0); Mean Corpuscular Volume 83.6 fL (78.0-102.0); Monocytes Absolute Auto 0.75 K/mm3 (0.10-0.90); Monocytes Percent Auto 8.8 % (2.0-11.0); Neutrophils Absolute Auto 5.3 K/mm3 (1.7-7.2); Neutrophils Percent Auto 62.9 % (50.0-70.0); Platelet Count Result 257 K/mm3 (150-420); Red Blood Count 4.09 M/mm3 (4.20-5.40); Red Cell Distribution Width 12.5 % (11.6-14.4); White Blood Count 8.5 K/mm3 (4.8-10.8)
[2021-03-12 20:05] LABS: Prothrombin Time 10.8 Seconds (9.50-12.10)
[2021-03-12 20:11] LABS: Alanine Aminotransferase 19 U/L (14-59); Albumin Level 3.3 g/dL (3.4-5.0); Alkaline Phosphatase 81 U/L (46-116); Anion Gap 11 mmol/L (8-16); Aspartate Amino Transferase 13 U/L (15-37); Bilirubin,Total 0.2 mg/dL (0.00-1.00); Blood Urea Nitrogen 22 mg/dL (7-18); Calcium 8.5 mg/dL (8.5-10.1); Carbon Dioxide 27 mmol/L (21-32); Chloride 102 mmol/L (98-108); Estimated Glomerular Filt Rate 42; Glucose 166 mg/dL (70-99); Osmolality Calculated 297 mOsm/kg (285-295); Potassium 3.5 mmol/L (3.5-5.1); Sodium 140 mmol/L (136-145); Total Protein 6.5 g/dL (6.4-8.2); Troponin I 6.4 ng/L (0.00-60.4)
[2021-03-12 20:20] LABS: Add Urine Microscopic? NO; Appearance Urine Clear (Clear); Bilirubin Urine Negative (Negative); Blood Urine Negative (Negative); Color Urine Light Yellow (Yellow); Glucose Urine UA Negative (Negative); Ketones Urine Negative (Negative); Leukocyte Esterase Ur Negative (Negative); Nitrate Urine Negative (Negative); Protein Urine Negative (Negative); Specific Grav Ur 1.015 (1.010-1.020); Urobilinogen Urine 0.2 mg/dL (0.2-1.0); pH Urine 6.5 (5.0-8.0)
[2021-03-12 20:36] VITALS: BP 141/67; PULSE 79; RESP 18; O2SAT 97
== END 2021-03-12 20:45 | disposition home or self-care (01) ==
PROVIDERS: Emergency Provider Family Medicine; PCP Internal Medicine
DX: I69.898 Other sequelae of other cerebrovascular disease (principal); E11.9 Type 2 diabetes mellitus without complications; E78.5 Hyperlipidemia, unspecified; I10 Essential (primary) hypertension
CPT/HCPCS: 36415; 70450; 80053; 81003; 84484; 85025; 85610; 93005; 99283; 99284

== ENCOUNTER 2021-06-15 09:03 | Emergency (ER) | payer MEDICARE, SELFPAY ==
[2021-06-15 09:12] VITALS: BP 154/78; PULSE 85; RESP 17; TEMP 37.4; O2SAT 98
--- NOTE | 2021-06-15 10:59 | ED.GENADULT ---
HPI - General Adult General Chief complaint: Neck Pain/Injury Stated complaint: right arm to neck pain Time Seen by Provider: 06/15/21 10:17 Source: patient Mode of arrival: ambulatory Limitations: no limitations History of Present Illness HPI narrative: Patient is a 75-year-old female with chief complaint of right arm pain and cramping that sometimes has radicular symptoms for the past 1 week. Patient reports having a stroke May of last year which cause her right side neglect. She reports having some atrophy to the muscles on that side. Patient denies any falls or direct injuries to the right arm. She reports at times the pain starts in her right shoulder and radiate down the arm or up into her neck. She denies any neck injuries or falls. Patient denies any syncope, change in vision or hearing, facial asymmetry, speech deficits, neurological deficits besides her baseline, swelling to the extremity or changes in strength and mobility. Patient has not contacted her primary care regarding her symptoms. Patient has been using muscle rubs and lidocaine patches without remittance of her symptoms. Related Data Home Medications Medication Instructions Recorded Confirmed aspirin 81 mg PO DAILY 12/05/20 04/06/21 magnesium oxide 400 mg (241.3 mg 400 mg PO TID tablet 12/28/20 04/06/21 magnesium) tablet fluoxetine 20 mg capsule 20 mg PO DAILY 02/02/21 04/06/21 insulin glargine 100 unit/mL 18 unit SUBCUT HS ml 02/22/21 04/06/21 subcutaneous solution Allergies Allergy/AdvReac Type Severity Reaction Status Date / Time Sulfa (Sulfonamide Allergy Intermediate RASH,HIVE Verified 04/06/21 10:23 Antibiotics) codeine AdvReac Intermediate VOMITING Verified 04/06/21 10:23 AND MIGRAINES fentanyl AdvReac Intermediate MIGRAINE,VO Verified 04/06/21 10:23 MITING hydrocodone AdvReac Intermediate MIGRAINE,VO Verified 04/06/21 10:23 MITING lisinopril AdvReac Intermediate COUGH Verified 04/06/21 10:23 metoprolol AdvReac Intermediate migraines,v Verified 04/06/21 10:23 omiting belladonna alkaloids AdvReac Mild MIGRAINE,VO Verified 04/06/21 10:23 MITING cephalexin AdvReac Mild Vomiting Verified 04/06/21 10:23 phenobarbital AdvReac Mild MIGRAINES,V Verified 04/06/21 10:23 OMITING morphine AdvReac Unknown MIGRAINE,VO Verified 04/06/21 10:23 MITING Review of Systems Review of Systems: CONSTITUTIONAL: Denies fever, chills, or sweats. EYES: Denies visual changes, redness, or discharge. ENT: Denies rhinorrhea, congestion, sore throat, or otalgia. CARDIOVASCULAR: Denies chest pain, palpitations, or edema. RESPIRATORY: Denies cough or dyspnea. GASTROINTESTINAL: Denies abdominal pain, nausea, vomiting, or diarrhea. GENITOURINARY: Denies dysuria or hematuria. SKIN: Denies rash or itching. MUSCULOSKELETAL: Reports right shoulder pain denies back pain, joint pain, or myalgia. NEUROLOGIC: Denies headache, numbness, dizziness, or weakness. PSYCHIATRIC: Denies anxiety or depression. [facility] Past Medical History Medical History Aphasia Chronic anemia Chronic pruritus CVA (cerebral vascular accident) Diabetes 02/02/21 A1C = 6.6 DM w/o complication type II, uncontrolled Hyperlipidemia Hypertension Medial epicondylitis of right elbow Uterine cancer Surgical History Surgical History H/O arthroscopic knee surgery bilateral - over 10 years ago, per pt H/O: hysterectomy Family History Family History Father Family history of blood dyscrasia Family history of Alzheimer's disease Family history of macular degeneration Mother Family history of chronic obstructive pulmonary disease Family history of coronary artery disease Family history of malignant neoplasm of esophagus Grandparent Carcinoma of colon Sibling Family history of type 2 diabete
[2021-06-15] MEDS: traMADol HCL (*CRX) 50 MG TABLET 25 MG PO (11:08)
== END 2021-06-15 11:21 | disposition home or self-care (01) ==
PROVIDERS: Emergency Provider Emergency Medicine; PCP Internal Medicine
DX: M62.838 Other muscle spasm (principal); I69.951 Hemiplegia and hemiparesis following unspecified cerebrovascular disease affecting right dominant side; I69.920 Aphasia following unspecified cerebrovascular disease; Z85.42 Personal history of malignant neoplasm of other parts of uterus; E78.5 Hyperlipidemia, unspecified; I10 Essential (primary) hypertension; E11.9 Type 2 diabetes mellitus without complications; L29.9 Pruritus, unspecified; D64.9 Anemia, unspecified; Z79.82 Long term (current) use of aspirin; Z79.4 Long term (current) use of insulin
CPT/HCPCS: 99283; A9270

== ENCOUNTER → 2021-08-26 15:05 | Outpatient (CLI) | payer MEDICARE, SELFPAY ==
--- NOTE | ~2021-08-26 | XR_ITS ---
XR shoulder LT min 2V DATE: 08/26/2021 15:47 INDICATION: Left shoulder pain TECHNIQUE: 4 views COMPARISON: None FINDINGS: There is diffuse osteopenia. There is dextro scoliosis and degenerative spurring of the thoracic spine. Aortic arch calcification. No fracture, dislocation, periosteal reaction or bone destruction or abnormal soft tissue calcificati on of the left shoulder is detected. IMPRESSION: Osteopenia Dextro scoliosis and degenerative spurring of the thoracic spine No significant abnormality of the left shoulder is noted otherwise Reviewed, dictated and finalized at location A.
== END ==
PROVIDERS: Visit Provider Nurse Practitioner
DX: M85.812 Other specified disorders of bone density and structure, left shoulder (principal)
CPT/HCPCS: 73030

== ENCOUNTER 2021-09-01 14:17 | Outpatient (CLI) | payer MEDICARE, SELFPAY | END 2021-09-01 14:18 | disposition home or self-care (01) | LOC: CHSAUDIO 14:18 | PROVIDERS: PCP Internal Medicine; Visit Provider Internal Medicine | DX: H91.90 Unspecified hearing loss, unspecified ear (principal) | CPT/HCPCS: 92557; 92567 ==

== ENCOUNTER 2021-10-27 15:30 | Outpatient (RCR) | payer MEDICARE, SELFPAY ==
--- NOTE | 2021-09-02 11:47 | PTOPEVAL ---
PHYSICAL THERAPY INITIAL EVALUATION. Thank you for referring Shandra Wilson to [facility].? The patient is scheduled to be seen for therapy? 2x/week for 8 weeks. Please review, sign, date and return this plan of care ASHIA. I agree with and certify that the following plan of care is medically necessary. Referring Physician Date Attending Provider: Easton Dawson DO *PT Outpatient Evaluation Start: 09/02/21 Evaluation Information Diagnosis CVA Onset September of 2020 Additional Evaluation Detail Missing R field of vision on both sides. Subjective Information Pt states she had a stroke Query Text:As Reported By Patient/ affecting her R side in September 2020 and it is making it difficult to walk. Her son states she did therapy after the stroke and progressed pretty well, but since stopping therapy she has started to decline. She states she is also having L shoulder pain. Pt states she initial used a rollator and is now using a cane, when she walks without the cane she drags her foot. 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 Pt reports progressing fatigue throughout the day. Pain Assessment Self Report Pain Assessment Left Shoulder(s) Reported Pain Level 2 Lower Extremity Range of Motion Gross Lower Extremity Range of Motion R knee active -25 deg from Comments terminal knee extension R knee passive 0 deg R ankle df active 2 deg R ankle df passive 5 deg Lower Extremity Muscle Strength Testing Gross Lower Extremity Strength L LE grossly 4+/5 R hip flexion 4-/5 R knee extension 2+/5 R ankle dorsiflexion 3+/5 R hip extension 2/5 R hip abduction 2+/5 Lower Extremity Muscle Tone Synergy Type Extension Pattern General Lower Extremity Tone Functional increase tone with active knee Limitations Comments flexion. Extensor pattern present during ambulation with lack of knee flexion Balance Assessment Tinetti Balance Assessment Pavithra
--- NOTE | 2021-10-04 09:28 | PCPTNOTE ---
Patient called & cancelled scheduled appointment this date due to patient's ride unable to get off work to bring her.
--- NOTE | 2021-10-13 16:40 | PCPTNOTE ---
Patient called & cancelled scheduled appointment this date due to not feeling well.
--- NOTE | 2021-10-27 16:19 | PTOPEVAL ---
PHYSICAL THERAPY PROGRESS REPORT AND DISCHARGE SUMMARY. Thank you for referring Shandra Wilson to [facility].? The patient is to be d/c'ed from skilled therapy services at this time. Please review, sign, date and return this plan of care ASHIA. I agree with and certify that the following plan of care is medically necessary. Referring Physician Date Attending Provider: Easton Dawson, Evaluation Information Diagnosis CVA Onset September of 2020 Subjective Information Pt states she thinks she is Query Text:As Reported By Patient/ doing okay but not where she Family wants to be yet. She states she does her exercises and her daily chores/housework and she cannot stand to do much more. Pt states it has become a hassle for her daughter to have to take off work to bring her to therapy. Pt report ghada foot pain this date. Lower Extremity Range of Motion Gross Lower Extremity Range of Motion R knee active -12 deg from Comments terminal knee extension R knee passive 0 deg R ankle df active 5 deg R ankle df passive 12 deg Lower Extremity Muscle Strength Testing Gross Lower Extremity Strength L LE grossly 4+/5 R hip flexion 4-/5 R knee extension 4-/5 R knee flexion 4-/5 R ankle dorsiflexion 4/5 R hip extension 3/5 R hip abduction 3-/5 Lower Extremity Muscle Tone Right Synergy Type Extension Pattern General Lower Extremity Tone Functional increase tone with active knee Limitations Comments flexion. Extensor pattern present during ambulation with lack of knee flexion Balance Assessment Tinetti Balance Assessment Tinetti Composite Score (Balance + Gait) Interpretation of Scores At risk for falls (19-24) Comments Initially 10/27/21: Time Up Go (TUG) Timed Up and Go Test (TUG) (Seconds) 14 Comments Initially: 13s with straight cane 10/27/21: 14s without AD 5 Time Sit to Stand 5 Time Sit to Stand Comments Initiially: 13s, without use Query Text:Normative Data: If Greater of UEs, decrease eccentric Than 15 Seconds, 74% Increase Risk for control Recurrent Falls 10/27/21: 14s without use of UEs , demonstrates good eccentric
== END 2021-10-28 11:37 | disposition home or self-care (01) ==
LOC: ANHPT 15:30
PROVIDERS: PCP Internal Medicine; Visit Provider Internal Medicine
DX: I63.9 Cerebral infarction, unspecified (principal); R26.89 Other abnormalities of gait and mobility
CPT/HCPCS: 97110; 97112; 97116; 97162; 97530

== ENCOUNTER 2021-10-30 12:58 | Emergency (ER) | payer MEDICARE, SELFPAY ==
--- NOTE | ~2021-10-30 | XR_ITS ---
EXAM: XR shoulder RT min 2V DATE: 10/30/2021 14:25 HISTORY: LROM and pain in R shoulder after fall today . COMPARISON: None available. FINDINGS: Decreased mineralization. No fracture or dislocation. Widened subacromial space. No lytic or blastic lesion. Mild AC joint hypertrophy and glenohumeral osteoarthritis. No erosion or periostea l change. Rotator cuff calcific tendinitis. IMPRESSION: No acute osseous finding in the right shoulder. Glenohumeral subluxation. Reviewed, dictated and finalized at location K. IMPRESSION: No acute osseous finding in the right shoulder. Glenohumeral sublux ation.
[2021-10-30 13:30] VITALS: BP 122/80; PULSE 73; RESP 18; TEMP 36.7; O2SAT 98
[2021-10-30 13:38] VITALS: BP 122/80; PULSE 75; RESP 20; TEMP 36.7; O2SAT 96
--- NOTE | 2021-10-30 14:15 | ED.GENADULT ---
HPI - General Adult General Chief complaint: Fall Stated complaint: fall, R shoulder pain Time Seen by Provider: 10/30/21 14:15 History of Present Illness HPI narrative: The patient is a 76-year-old woman who was walking to the bathroom last night right she fell after feeling off balance . Since that time, she has had pain in the right shoulder. She is able to move the arm and supported with the left arm. No obvious bony deformity. No other injuries. No neck or back pain no loss of consciousness. No sensation of dizziness or nausea before this fall. She has taken Tylenol, 2 tablets, 10:00 a.m., 4 hours ago this morning. She has a history of a stroke with right-sided weakness. She is normally able to move the right arm. History of diabetes & hypertension. Related Data Home Medications Medication Instructions Recorded Confirmed aspirin 81 mg tablet 81 mg PO DAILY 12/05/20 10/30/21 insulin glargine 100 unit/mL 20 unit subcut HS 02/22/21 10/30/21 subcutaneous solution (Lantus U-100 Insulin) Allergies Allergy/AdvReac Type Severity Reaction Status Date / Time Sulfa (Sulfonamide Allergy Intermediate RASH,HIVE Verified 10/30/21 13:48 Antibiotics) codeine AdvReac Intermediate VOMITING Verified 10/30/21 13:48 AND MIGRAINES fentanyl AdvReac Intermediate MIGRAINE,VO Verified 10/30/21 13:48 MITING hydrocodone AdvReac Intermediate MIGRAINE,VO Verified 10/30/21 13:48 MITING lisinopril AdvReac Intermediate COUGH Verified 10/30/21 13:48 metoprolol AdvReac Intermediate migraines,v Verified 10/30/21 13:48 omiting belladonna alkaloids AdvReac Mild MIGRAINE,VO Verified 10/30/21 13:48 MITING cephalexin AdvReac Mild Vomiting Verified 10/30/21 13:48 phenobarbital AdvReac Mild MIGRAINES,V Verified 10/30/21 13:48 OMITING morphine AdvReac Unknown MIGRAINE,VO Verified 10/30/21 13:48 MITING Review of Systems Review of Systems: All systems reviewed & are unremarkable except as noted in HPI and below Constitutional: Constitutional: Reports no additional constitutional complaints, Denies anorexia, Denies chills, Denies excessive sweating, Denies fatigue, Denies fever(s), Denies frequent falls, Denies headache(s), Denies malaise and Denies poor appetite Eyes: Eyes: Reports no additional eye complaints, Denies blurry vision, Denies change in vision, Denies irritation, Denies itchy eyes and Denies photophobia ENT: Reports system reviewed and no additional complaints, except as documented, Reports Normal hearing present, Denies change in voice, Denies dysphagia, Denies vertigo, Denies dizziness, Denies ear discharge, Denies headache(s), Denies hearing loss, Denies hoarseness, Denies nasal congestion, Denies neck pain, Denies sinus pressure, Denies sore throat and Denies throat swelling Cardiovascular: Cardiovascular: Reports no additional cardiovascular complaints, Denies chest pain, Denies syncope, Denies rapid heart rate, Denies irregular heart rhythm, Denies leg edema, Denies dyspnea and Denies slow heart rate Respiratory: Respiratory: Reports no additional respiratory complaints, Denies cough, Denies dyspnea, Denies stridor and Denies wheezing Gastrointestinal: Gastrointestinal: Reports no additional gastrointestinal complaints, Denies abdominal pain, Denies melena, Denies hematochezia, Denies dysphagia, Denies diarrhea, Denies nausea and Denies vomiting Genitourinary: Genitourinary: Denies hematuria, Denies urinary frequency, Denies dysuria, Denies flank pain and Denies urinary urgency Musculoskeletal: Musculoskeletal: Reports no additional musculoskeletal complaints, Denies abnormal gait, Denies back pain, Denies myalgias, Reports arthralgias, Denies joint swelling, Reports limited range of motion, Denies muscle cramps, Denies muscle weakness, Denies neck pain and Denies numbness Comments: The patient has decreased range of motion of the right shoulder Integumentary/Breasts: Skin/Breast: Re
[2021-10-30] MEDS: ACETAMINOPHEN 325 MG TABLET 975 MG PO (14:36)
[2021-10-30] MEDS: IBUPROFEN 600 MG TABLET PO (14:37)
[2021-10-30 15:10] VITALS: BP 135/70; PULSE 76; RESP 20; TEMP 37; O2SAT 96
== END 2021-10-30 15:13 | disposition home or self-care (01) ==
PROVIDERS: Emergency Provider Emergency Medicine
DX: S43.001A Unspecified subluxation of right shoulder joint, initial encounter (principal); W19.XXXA Unspecified fall, initial encounter; E11.9 Type 2 diabetes mellitus without complications; E78.5 Hyperlipidemia, unspecified; I10 Essential (primary) hypertension
CPT/HCPCS: 73030; 99283; A4565; A9270

== ENCOUNTER 2022-07-15 10:25 | Outpatient (CLI) | payer MEDICARE, SELFPAY ==
--- NOTE | ~2022-07-15 | XR_ITS ---
XR knee LT min 4V 07/15/2022 10:52 Indication: Left knee pain Procedure: 4 views left knee Comparison: No prior studies for comparison. Findings: Moderate-severe tricompartment osteoarthritis. Small knee effusion. No acute fracture or tr aumatic malalignment. Impression: 1: No acute fracture. 2: Moderate-severe tricompartment osteoarthritis of the left knee. Reviewed, dictated and finalized at location B. [employer] Impression: 1: No acute fracture. 2: Moderate-severe tricompartment osteoarthritis of the left knee.
== END 2022-07-15 10:26 | disposition home or self-care (01) ==
LOC: ANHIMG 10:28
PROVIDERS: PCP Internal Medicine; Visit Provider Nurse Practitioner Family
DX: M17.12 Unilateral primary osteoarthritis, left knee (principal)
CPT/HCPCS: 73564

== ENCOUNTER 2022-09-12 14:13 | Outpatient (CLI) | payer MEDICARE, SELFPAY ==
--- NOTE | ~2022-09-12 | MR_ITS ---
EXAMINATION: MR knee LT wo con DATE: 09/12/2022 15:14 INDICATION: Left knee acute pain TECHNIQUE: Magnetic resonance imaging (MRI) of the left knee was performed without intravenous contra st. Sequences included coronal PD-weighted FSE, coronal PD-weighted FS FSE, sagittal T2-weighted FSE , sagittal PD-weighted FS FSE and axial PD weighted fat saturated FSE. COMPARISON: None. FINDINGS: Medial compartment: Full-thickness radial tear at the medial side of the posterior horn of the medial meniscus with media l extrusion of the medial meniscal body. There is amorphous increased signal throughout the body whic h does not definitively contact the articular surface consistent with mucoid degeneration. Aside from the tear the posterior horn of the medial meniscus appears small which suggests possibility of prior partial meniscectomy. Full/near full-thickness cartilage loss with subtle irregularity to the articu lar cortex and minimal underlying cystlike and edema-like signal change at the anterior weightbearing medial femoral condyle and medial half of the medial tibial plateau. Less severe partial thickness c hondral ulceration along the central to posterior weightbearing medial femoral condyle. Moderate size marginal osteophytes are present. Lateral compartment: Additional mild intrasubstance increased signal which does not contact the articular surface at the b abhijeet of the lateral meniscus also consistent with mucoid degeneration without discrete tear. Partial-t hickness chondral ulceration with chondral surface regularity along the weightbearing lateral femoral condyle and lateral tibial plateau. Small central subchondral osteophytes suggesting deep overlying chondral ulceration and fissuring at the central and posterior aspects of the lateral tibial plateau and along the posterior weightbearing lateral femoral condyle. Small marginal osteophytes are present . Patellofemoral compartment: Deep chondral ulceration with tiny central subchondral osteophytes along the inferior aspect of the l ateral patellar facet. Chondral ulceration and deep chondral fissuring without degenerative subchondr al changes at the lateral trochlea and with more prominent central subchondral osteophytes at the porter tral aspect of the medial trochlea. Moderate size marginal osteophytes are present. Ligaments and tendons: Mild thickening and increased signal at the posterior cruciate ligament consistent with at least part ial tear. The anterior cruciate ligament demonstrates a normal angle relative to Blumensaat line. It appears thickened with increased intrasubstance signal surrounding intact appearing linear fibers wit h a celery stalk appearance consistent with mucoid degeneration. The marginal osteophytes along the medial margin of the anterior weightbearing lateral femoral condyle. Mild mass effect upon the later al margin of the anterior cruciate ligament. The fibular collateral ligament complex is normal. There is mild thickening and mild increased signal of the proximal medial collateral ligament without surr ounding edema to suggest acute injury suggesting mild scarring related to chronic sprain. Patellar te ndon is normal. Mild distal quadriceps tendinopathy without tear. The visualized medial and lateral h amstring tendons as well as the iliotibial band are normal. Fluid: Small left knee joint effusion. There is also a small Avalos's cyst. No loose osteochondral bodies jenny ntified. Osseous/other: No fracture or pathologic marrow replacing process. IMPRESSION: 1. Radial tear at the posterior horn of the medial meniscus with mild medial extrusion and likely muc oid degeneration at the medial meniscal body. 2. Likely mucoid degeneration without discrete tear at the body of the lateral meniscus. 3. Tricompartmental osteoarthritis, severe with extensive high-grade chondral malacia in the medial c ompartment
== END 2022-09-12 14:14 | disposition home or self-care (01) ==
PROVIDERS: PCP Internal Medicine; Visit Provider Nurse Practitioner Family
DX: M17.12 Unilateral primary osteoarthritis, left knee (principal); S83.242A Other tear of medial meniscus, current injury, left knee, initial encounter; X58.XXXA Exposure to other specified factors, initial encounter
CPT/HCPCS: 73721

== ENCOUNTER 2023-02-01 12:28 | Outpatient (CLI) | payer MEDICARE, SELFPAY ==
--- NOTE | ~2023-02-01 | DEXA_ITS ---
Bone Density Report Name: SACHIN PHAM Age: 77 Sex: Female Ethnicity: White Date of : 1945 Indication: postmenopausal; screening for osteoporosis; height loss; prior fracture; cancer; hysterectomy; Referring Provider: BELIA AUGUST Study: Bone densitometry was performed. Exam Date: February 01, 2023 Accession number: [id number] Bone Density: Region BMD T-score Z-score Classification AP Spine(L1-L4) 0.853 -1.8 0.7 Osteopenia Femoral Neck (Left) 0.571 -2.5 -0.4 Osteoporosis Total Hip (Left) 0.746 -1.6 0.2 Osteopenia Femoral Neck (Right) 0.540 -2.8 -0.7 Osteoporosis Total Hip (Right) 0.768 -1.4 0.4 Osteopenia Femoral Neck Mean 0.555 -2.6 -0.5 Osteoporosis Total Hip Mean 0.757 -1.5 0.3 Osteopenia World Health Organization criteria for BMD impression classify patients as: Normal (T-score at or above -1.0), Osteopenia (T-score between -1.0 and -2.5), or Osteoporosis (T-score at or below -2.5). 10-year Fracture Risk: FRAX not reported because: Some T-score for Spine Total or Hip Total or Femoral Neck at or below -2.5 Clinical Information Provided by Patient: Has had a low trauma fracture Has the following medical conditions: Cancer, Hysterectomy Patient maximum height was 59 Menopause Age: 57 No regular weight bearing exercise Does not regularly consume dairy products Onset of menses at age 14 Number of children 1 Impression: The patient has established osteoporosis, based on the Right Femoral Neck T-score and the existence of a prior fracture. The patient has risk factors, including: previous fracture. Discussion: HIGH RISK OF FRACTURE. BONE DENSITY IS UNDESIRABLY LOW AT ONE OR MORE SKELETAL SITES, CONSISTENT WITH POSTMENOPAUSAL OSTEOPOROSIS. This patient's lowest T-score, in a patient who has previously fractured, meets the World Health Organization's (WHO) criteria for severe osteoporosis. In untreated patients, the risk of osteoporotic fracture increases approximately two-fold for each 1.0 SD decrease in T-score. Low bone density is not the only risk factor for fracture; also consider factors such as patient's age, frailty or poor health, risk of falling, risk of injury, previous osteoporotic fracture, family history of osteoporosis, cigarette smoking, low body weight, etc. Not everyone with low bone mineral density has osteoporosis; osteomalacia and other metabolic bone disorders should also be considered. Patients who have osteoporosis should be evaluated for specific diseases and conditions (secondary causes) that may cause or contribute to bone loss. The [place] [employer] Endocrinologists (AACE) and National Osteoporosis Foundation (NOF) recommend pharmacologic intervention for all postmenopausal women whose T-score is in this range. The patient should
--- NOTE | ~2023-02-01 | MM_ITS ---
EXAMINATION: MM screening joshua BI w maame HISTORY: Screening mammogram TECHNIQUE: Craniocaudal and mediolateral oblique 3-D tomosynthesis images were obtained and synthetic 2-D images were generated. CAD analysis was submitted and interpreted. COMPARISON: 09/12/2019 diagnostic right mammogram and limited right breast ultrasound, reported benign 09/03/2019, 08/21/2018 bilateral screening mammogram examinations BREAST PARENCHYMAL COMPOSITION: There are scattered areas of fibroglandular density. FINDINGS: Stable benign circumscribed probable intramammary lymph node, mid to upper outer right [address]. Slightly diminished size of low-density circumscribed opacity in the anterior mid inner right breast. There is no evidence of suspicious mass, calcification, or architectural distortion to suggest malig aixa in either breast. There has been no suspicious interval change. IMPRESSION: 1. No mammographic evidence of malignancy. 2. Recommend routine screening mammography in one year. BI-RADS Category 2: Benign finding(s). Reviewed, dictated and finalized at location A.
== END 2023-02-01 12:29 | disposition home or self-care (01) ==
LOC: CHSIMG 12:30
PROVIDERS: PCP Nurse Practitioner Family; Visit Provider Nurse Practitioner
DX: Z12.31 Encounter for screening mammogram for malignant neoplasm of breast (principal); Z78.0 Asymptomatic menopausal state; M81.0 Age-related osteoporosis without current pathological fracture; M85.89 Other specified disorders of bone density and structure, multiple sites
CPT/HCPCS: 77063; 77067; 77080

== ENCOUNTER 2023-07-09 09:31 | Emergency (ER) | payer MEDICARE, SELFPAY ==
--- NOTE | ~2023-07-09 | XR_ITS ---
EXAMINATION: XR ankle RT 2V DATE: 07/09/2023 10:23 INDICATION: Right ankle pain TECHNIQUE: Anteroposterior, oblique, mortise, and lateral views of the right ankle were obtained. COMPARISON: None. FINDINGS: Diffuse osteopenia. Bone alignment is normal. No fracture. Mild osteoarthritis at the first metatarso phalangeal joint. Remaining joint spaces are relatively preserved. Moderate-sized plantar calcaneal s pur. Soft tissues are unremarkable with no right ankle joint effusion. IMPRESSION: 1. Mild degenerative skeletal changes as detailed above. No right ankle joint effusion or acute osseo us abnormality. Reviewed, dictated and finalized at location A. ARDING SPECIALIST IMPRESSION: 1. Mild degenerative skeletal changes as detailed above. No right ankle joint e ffusion or acute osseous abnormality.
--- NOTE | ~2023-07-09 | US_ITS ---
EXAMINATION: US venous doppler LE DATE: 07/09/2023 10:43 INDICATION: Right lower limb pain TECHNIQUE: Grayscale ultrasound images without and with compression and Doppler ultrasound images of the right lower extremity veins were obtained. COMPARISON: 05/08/2014 FINDINGS: The visualized portions of right common femoral vein, profunda (deep) femoral vein, femoral vein, pop liteal vein, peroneal trunk, posterior tibial veins, peroneal veins and greater saphenous vein outflo w are patent. IMPRESSION: 1. No deep venous thrombosis in the right lower limb. Reviewed, dictated and finalized at location A. ECT ARCHITECT
[2023-07-09 09:37] VITALS: BP 145/63; PULSE 77; RESP 20; TEMP 37.2; O2SAT 99
--- NOTE | 2023-07-09 10:23 | PC.NURSE ---
Pt to Xray
--- NOTE | 2023-07-09 11:15 | ED.LOWEXIN ---
HPI - Extremity Injury (Lower) General Chief Complaint: Extremity Injury, Lower Stated Complaint: R ankle pain Time Seen by Provider: 07/09/23 10:19 History of Present Illness HPI Narrative: This is a 78-year-old female, with history of stroke with right-sided deficits, presents to emergency department complaining of right ankle pain beginning last night. The patient describes the pain as burning, rated 7/10 without radiation. She denies any injury, fevers or chills per Related Data Home Medications Medication Instructions Recorded Confirmed aspirin 81 mg tablet 81 mg PO DAILY 12/05/20 01/10/23 Allergies Allergy/AdvReac Type Severity Reaction Status Date / Time Sulfa (Sulfonamide Allergy Intermediate RASH,HIVE Verified 07/09/23 10:17 Antibiotics) codeine AdvReac Intermediate VOMITING Verified 07/09/23 10:17 AND MIGRAINES fentanyl AdvReac Intermediate MIGRAINE,VO Verified 07/09/23 10:17 MITING hydrocodone AdvReac Intermediate MIGRAINE,VO Verified 07/09/23 10:17 MITING lisinopril AdvReac Intermediate COUGH Verified 07/09/23 10:17 metoprolol AdvReac Intermediate migraines,v Verified 07/09/23 10:17 omiting belladonna alkaloids AdvReac Mild MIGRAINE,VO Verified 07/09/23 10:17 MITING cephalexin AdvReac Mild Vomiting Verified 07/09/23 10:17 phenobarbital AdvReac Mild MIGRAINES,V Verified 07/09/23 10:17 OMITING morphine AdvReac Unknown MIGRAINE,VO Verified 07/09/23 10:17 MITING Review of Systems Review of Systems: CONSTITUTIONAL: Denies fever, chills, or sweats. EYES: Denies visual changes, redness, or discharge. ENT: Denies rhinorrhea, congestion, sore throat, or otalgia. CARDIOVASCULAR: Denies chest pain, palpitations, or edema. RESPIRATORY: Denies cough or dyspnea. GASTROINTESTINAL: Denies abdominal pain, nausea, vomiting, or diarrhea. GENITOURINARY: Denies dysuria or hematuria. SKIN: Denies rash or itching. MUSCULOSKELETAL: right ankle pain Denies back pain, joint pain, or myalgia. NEUROLOGIC: Denies headache, numbness, dizziness, or weakness. PSYCHIATRIC: Denies anxiety or depression. [facility]LY [facility] Past Medical History Medical History Aphasia Chronic anemia Chronic pruritus CVA (cerebral vascular accident) Diabetes 02/02/21 A1C = 6.6 DM w/o complication type II, uncontrolled Hyperlipidemia Hypertension Medial epicondylitis of right elbow Uterine cancer Surgical History Surgical History H/O arthroscopic knee surgery bilateral - over 10 years ago, per pt H/O: hysterectomy Family History Family History Father Family history of blood dyscrasia Family history of Alzheimer's disease Family history of macular degeneration Mother Family history of chronic obstructive pulmonary disease Family history of coronary artery disease Family history of malignant neoplasm of esophagus Grandparent Carcinoma of colon Sibling Family history of type 2 diabetes mellitus Other Family history of malignant neoplasm of breast Social History Social History Social History: patient recently had a stroke 10/09 and was at [place] for last week and half. When she leaves here she is going to move in with her son Chin in [place]. her son Chin Resendez will be her surrogate and patient wishes to be a full code. Currently patient lives with no other pets Smoking status: Never smoker Second hand tobacco smoke exposure: Yes Alcohol intake: never Alcohol use details: Social Substance use: never Substance use type: does not use Lack of Transportation: YES Lack of Food: Never True Current Housing: I Have Housing Concerned About Future Housing: No Difficulty Paying Gas/Electric Bills: Decline to Answer Difficulty Paying for Meds: N
[2023-07-09] MEDS: LIDOCAINE 5% PATCH 1 PATCH TRANSDERM (11:38)
[2023-07-09 11:53] VITALS: BP 140/60; PULSE 75; RESP 20; TEMP 36.6; O2SAT 99
== END 2023-07-09 11:55 | disposition home or self-care (01) ==
PROVIDERS: Emergency Provider Preventive Medicine Aerospace Medicine; PCP Nurse Practitioner
DX: M25.571 Pain in right ankle and joints of right foot (principal); M79.661 Pain in right lower leg; E11.9 Type 2 diabetes mellitus without complications; E78.5 Hyperlipidemia, unspecified; I10 Essential (primary) hypertension; I69.351 Hemiplegia and hemiparesis following cerebral infarction affecting right dominant side; D64.9 Anemia, unspecified; Z85.42 Personal history of malignant neoplasm of other parts of uterus; Z90.710 Acquired absence of both cervix and uterus; Z79.82 Long term (current) use of aspirin; Z79.4 Long term (current) use of insulin; Z79.84 Long term (current) use of oral hypoglycemic drugs
CPT/HCPCS: 73600; 93971; 99284; A9270

== ENCOUNTER 2024-04-21 17:58 | Emergency (ER) | payer MEDICARE, SELFPAY ==
--- NOTE | ~2024-04-21 | XR_ITS ---
EXAM: XR shoulder LT min 2V DATE: 04/21/2024 21:08 HISTORY: pain s/p fall . COMPARISON: 08/26/2021. FINDINGS: Osteopenia. No fracture or dislocation. No lytic or blastic lesion. Mild polyarticular ost eoarthritis. No erosion or periosteal change. Soft tissues within normal limits. IMPRESSION: No acute osseous finding in the left shoulder. Reviewed, dictated and finalized at location K. ONAL VICE PRESIDENT [employer]
--- NOTE | ~2024-04-21 | CT_ITS ---
EXAMINATION: CT brain wo con DATE: 04/21/2024 21:22 INDICATION: trauma . TECHNIQUE: Computed tomography (CT) of the head was performed without intravenous contrast. The mA wa s adjusted according to patient size. Iterative reconstruction technique was employed. The dose-lengt h product was 681.00 mGy-cm. COMPARISON: 03/12/2021. FINDINGS: No acute intracranial hemorrhage or extra-axial fluid collection. No hydrocephalus, mass, or herniation. No acute ischemic infarct. Unremarkable dural venous sinus attenuation. No acute osseous abnormality. The aerated spaces are clear. Moderate atrophy and chronic white matter change. Atherosclerotic intracranial calcification. Bilater al lens replacements. Chronic encephalomalacia in the left hemisphere, left basal ganglia, and left p ons. IMPRESSION: No acute intracranial process. Reviewed, dictated and finalized at location K. UP INSTRUCTOR
--- NOTE | ~2024-04-21 | XR_ITS ---
EXAMINATION: XR chest 1V Exam Date/Time: 04/21/2024 21:00 DIGITAL TRAFFIC COORDINATOR HISTORY: weakness Comparison: 12/15/2020. RESULT: Lines, tubes, and devices: None. Lungs and pleura: Ill-defined patchy subsegmental opacities in the right lung base. Right hemidiaphr agm elevation. Cardiomediastinal silhouette: Stable. Other: No acute osseous or upper abdominal finding. Possible nondisplaced right anterolateral sevent h and lateral eighth rib fractures. IMPRESSION: Subsegmental right basilar opacities, may represent atelectasis, infection, or pulmonary contusion in the setting of trauma. Possible nondisplaced right anterolateral seventh and lateral eighth rib frac tur. Reviewed, dictated and finalized at location K. TAL TRAFFIC COORDINATOR IMPRESSION: Subsegmental right basilar opacities, may represent atelectasis, infection, or pulmonary contusion in the setting of trauma. Possible nondisplaced right anter olateral seventh and lateral eighth rib fractures.
--- NOTE | ~2024-04-21 | CT_ITS ---
EXAMINATION: CT cervical spine wo con DATE: 04/21/2024 21:22 INDICATION: trauma TECHNIQUE: Computed tomography (CT) of the cervical spine was performed without intravenous contrast. Automated exposure control and iterative reconstruction technique were employed. The dose-length pro duct was 329.32 mGy-cm. COMPARISON: None. FINDINGS: Vertebral Body Alignment: Cervical straightening. Trace anterolisthesis at C4-5, presumably on a dege nerative basis. Craniocervical and atlantoaxial alignment: Moderate degenerative change. Alignment intact. Osseous structures/fracture: No evidence of a lytic or blastic process in the visualized spine. No e vidence of acute fracture. Cervical soft tissues: The paraspinal soft tissues planes are maintained. Degenerative changes: Degenerative changes, without severe neural foraminal or central canal narrowin g. IMPRESSION: No acute fracture or traumatic malalignment in the cervical spine. Reviewed, dictated and finalized at location K. RAM SCHEDULE CLERK
--- NOTE | ~2024-04-21 | XR_ITS ---
EXAM: XR hip LT 2V w AP pelvis DATE: 04/21/2024 21:08 HISTORY: pain s/p fall . COMPARISON: CT abdomen pelvis 12/05/2020. FINDINGS: Decreased mineralization. No fracture or dislocation. No lytic or blastic lesion. Lumbar d egenerative disc disease. Mild bilateral hip osteoarthritis. No erosion or periosteal change. Mild sc attered vascular calcification. IMPRESSION: No acute osseous finding in the pelvis or left hip. Reviewed, dictated and finalized at location K. RESSURE THERAPIST
[2024-04-21 17:59] VITALS: BP 109/55; PULSE 90; RESP 20; TEMP 36.2; O2SAT 97
[2024-04-21 21:28] VITALS: BP 155/84; PULSE 89; RESP 14; O2SAT 94
[2024-04-21 22:07] LABS: Basophils Absolute Auto 0.1 K/mm3 (0.0-0.1); Basophils Percent Auto 0.3 % (0.2-1.2); Hemoglobin 13.3 g/dL (12.0-15.0); Immature Granulocyte Absolute 0.11 K/mm3 (0.00-0.031); Immature Granulocyte Percent A 0.7 % (0-0.5); Lymphocytes Absolute Auto 0.91 K/mm3 (0.9-3.2); Lymphocytes Percent Auto 5.5 % (18.3-44.2); Mean Corpuscular HGB Conc 33.3 g/dl (32-36); Mean Corpuscular Hemoglobin 27.3 pg (26-34); Mean Platelet Volume 10.1 fl (7.4-10.4); Monocytes Absolute Auto 1.1 K/mm3 (0.1-0.6); Monocytes Percent Auto 6.4 % (2.6-8.5); Neutrophils Absolute Auto 14.3 K/mm3 (1.3-6.7); Neutrophils Percent Auto 87.1 % (45.5-73.1); Platelet Count Result 277 k/mm3 (150-375); Red Blood Count 4.88 M/mm3 (4.2-5.4); Red Cell Distribution Width 14.7 % (11.5-14.5); White Blood Count 16.4 K/mm3 (4.5-10.0)
[2024-04-21] MEDS: SODIUM CHLORIDE 0.9% IV 1,000 ML 999 ML IV CONT (22:10)
[2024-04-21 22:20] LABS: Alanine Aminotransferase 15 U/L (6-35); Albumin Level 4.4 g/dL (3.5-5.1); Alkaline Phosphatase 101 U/L (38-126); Anion Gap 7 mmol/L (4-12); Aspartate Amino Transferase 23 U/L (14-36); Bilirubin,Total 0.5 mg/dL (0.2-1.3); Blood Urea Nitrogen 23 mg/dL (7-17); Calcium 8.9 mg/dL (8.4-10.2); Carbon Dioxide 29 mmol/L (22-30); Chloride 97 mmol/L (98-107); Estimated Glomerular Filt Rate 34; Glucose 159 mg/dL (65-110); Lipase 100 U/L (23-300); Magnesium 2.2 mg/dL (1.6-2.3); Potassium 4.4 mmol/L (3.4-5.0); Sodium 133 mmol/L (137-145)
[2024-04-21 22:22] LABS: Add Urine Microscopic? YES; Appearance Urine Clear (Clear); Bacteria Urine None Seen /hpf; Bilirubin Urine Negative (Negative); Blood Urine Negative (Negative); Color Urine Yellow (Yellow); Glucose Urine UA Negative (Negative); Ketones Urine Negative (Negative); Leukocyte Esterase Ur Negative LEU/UL (Negative); Need Manual Microscopic Reviewed; Nitrate Urine Negative (Negative); Non Pathogenic Casts 0-2; Protein Urine Trace mg/dL (Negative); RBC Urine 0-2 /hpf (0-2); Squamous Epithelial Cell Urine None Seen /hpf (Few); Urobilinogen Urine 0.2 mg/dL (<2.0); WBC Urine 0-5 /hpf (0-3)
[2024-04-21 22:23] LABS: Partial Thromboplastin Time 27.9 Seconds (22.3-36.8); Prothrombin Time 13.8 Seconds (11.1-14.7)
[2024-04-21 22:32] LABS: NT Pro B Type Natriuretic Pept 318 pg/mL (19.9-100); Troponin I < 0.012 ng/mL (0.000-0.034)
[2024-04-21 22:37] LABS: Procalcitonin 0.1 ng/mL
[2024-04-21 22:50] LABS: Influenza A QL RT-PCR Negative (Negative); Influenza B QL RT-PCR Negative (Negative); RSV RNA, RT-PCR Negative (Negative); SARS-CoV-2 RNA PCR Negative (Negative)
[2024-04-21 22:51] VITALS: PULSE 87; RESP 14; O2SAT 96
[2024-04-21 23:22] VITALS: BP 154/84; PULSE 89; PULSE 90; RESP 13; TEMP 36.7; O2SAT 98
--- NOTE | 2024-04-21 23:58 | PC.NURSE ---
Per EDP Dr. Porras three hour troponin not needed on this patient.
--- NOTE | 2024-04-22 00:04 | ED_ITS ---
HPI - General Adult General Chief complaint: Weakness Stated complaint: WEAKNESS Time Seen by Provider: 04/21/24 20:38 History of Present Illness HPI narrative: Patient 78-year-old female who presents emergency department chief complaint of generalized weakness. Patient fell at home was unable to get patient episode loose stool while she laying around patient reports she has been patient has issues for dehydration patient reports that she feels as though she has less energy than normal. Related Data Home Medications Medication Instructions Recorded Confirmed aspirin 81 mg tablet 81 mg PO DAILY 12/05/20 08/16/23 magnesium 250 mg tablet 500 mg PO DAILY 01/02/24 Allergies Allergy/AdvReac Type Severity Reaction Status Date / Time Sulfa (Sulfonamide Allergy Intermediate RASH,HIVE Verified 01/02/24 09:14 Antibiotics) codeine AdvReac Intermediate VOMITING Verified 01/02/24 09:14 AND MIGRAINES fentanyl AdvReac Intermediate MIGRAINE,VO Verified 01/02/24 09:14 MITING hydrocodone AdvReac Intermediate MIGRAINE,VO Verified 01/02/24 09:14 MITING lisinopril AdvReac Intermediate COUGH Verified 01/02/24 09:14 metoprolol AdvReac Intermediate migraines,v Verified 01/02/24 09:14 omiting belladonna alkaloids AdvReac Mild MIGRAINE,VO Verified 01/02/24 09:14 MITING cephalexin AdvReac Mild Vomiting Verified 01/02/24 09:14 phenobarbital AdvReac Mild MIGRAINES,V Verified 01/02/24 09:14 OMITING morphine AdvReac Unknown MIGRAINE,VO Verified 01/02/24 09:14 MITING Review of Systems Review of Systems: A 10 system review of systems was completed on the patient and is negative except for what is stated in the HPI. Nursing and ancillary documentation was reviewed. [facility] Past Medical History Medical History Aphasia Chronic anemia Chronic pruritus CVA (cerebral vascular accident) Diabetes 02/02/21 A1C = 6.6 DM w/o complication type II, uncontrolled Hyperlipidemia Hypertension Medial epicondylitis of right elbow Uterine cancer Surgical History Surgical History H/O arthroscopic knee surgery bilateral - over 10 years ago, per pt H/O: hysterectomy Family History Family History Father Family history of blood dyscrasia Family history of Alzheimer's disease Family history of macular degeneration Mother Family history of chronic obstructive pulmonary disease Family history of coronary artery disease Family history of malignant neoplasm of esophagus Grandparent Carcinoma of colon Sibling Family history of type 2 diabetes mellitus Other Family history of malignant neoplasm of breast Social History Social History Social History: patient recently had a stroke 10/09 and was at [place] for last week and half. When she leaves here she is going to move in with her son Chin in [place]. her son Chin Resendez will be her surrogate and patient wishes to be a full code. Currently patient lives with no other pets Smoking status: Never smoker Second hand tobacco smoke exposure: Yes Alcohol intake: never Alcohol use details: Social Substance use: never Substance use type: does not use Lack of Transportation: YES Lack of Food: Never True Current Housing: I Have Housing Concerned About Future Housing: No Difficulty Paying Gas/Electric Bills: Decline to Answer Difficulty Paying for Meds: No Currently Unemployed: Decline to Answer Education: High School Diploma/GED Difficulty w/ Childcare or Family Care: No Living arrangements: prison Occupation/Education: retired Gender identity (if verbalized by the patient): Female Sexual Orientation (if Verbalized by the Patient): Straight or Heterosexual Spiritual care concerns: No Exam Narrative: GENERAL: Well-appearing, well-nourished, and in no acute distress. HEAD: Normocephalic, atraumatic. EYES: PERRLA and EOMI. ENT: Nares clear, no rhinorrhea or epistaxis. Mucous membranes moist. NECK: Supple. CHEST: Clear to auscultation. No respiratory distress. HEART: Regular rate and rhythm. No murmur heard. Normal peripheral pulses. ABDOMEN: Soft, nontender, nondistended, normal active bowel sounds. EXTREMITIES: Normal range of motion minimal tenderness present in the left hip left shoulder. No edema. SKIN: Warm, dry, no rash. NEURO: No focal deficits. Alert and oriented x3. PSYCH: Normal mood and affect. Course Vital Signs Vital signs: Vital Signs Temperature 36.2 C L 04/21/24 17:59 Pulse Rate 90 04/21/24 17:59 Respiratory Rate 20 04/21/24 17:59 Blood Pressure 109/55 L 04/21/24 17:59 Pulse Oximetry 97 04/21/24 17:59 Oxygen Delivery Room Air 04/21/24 17:59 Temperature 36.7 C 04/21/24 23:22 Pulse Rate 90 04/21/24 23:22 Respiratory Rate 13 04/21/24 23:22 Blood Pressure 154/84 H 04/21/24 23:22 Pulse Oximetry 98 04/21/24 23:22 Oxygen Delivery Room Air 04/21/24 17:59 Medical Decision Making MDM Narrative Medical decision making narrative: Differential diagnosis includes dehydration, UTI, pneumonia, Chest x-ray showed evidence of atelectasis in right basilar area. Radiology questions whether there was a possible nondisplaced right 7th and 8th rib fracture there is no tenderness present on exam this is very unlikely that were dealing with a rib fracture. Plain film x-rays of the shoulder hip and pelvis were obtained Laboratory studies showed a slightly elevated white blood cell count and showed a creatinine that was slightly increased 1.5 patient received a L of normal saline is feeling much better and now able to ambulate without difficulty Vital Signs Vital Signs: Vital Signs Temperature 36.2 C L 04/21/24 17:59 Pulse Rate 90 04/21/24 17:59 Respiratory Rate 20 04/21/24 17:59 Blood Pressure 109/55 L 04/21/24 17:59 Pulse Oximetry 97 04/21/24 17:59 Oxygen Delivery Room Air 04/21/24 17:59 Temperature 36.7 C 04/21/24 23:22 Pulse Rate 90 04/21/24 23:22 Respiratory Rate 13 04/21/24 23:22 Blood Pressure 154/84 H 04/21/24 23:22 Pulse Oximetry 98 04/21/24 23:22 Oxygen Delivery Room Air 04/21/24 17:59 Lab Data 04/21/24 22:00 04/21/24 22:00 Labs: Lab Results 04/21/24 04/21/24 Range/Units 21:59 22:00 WBC 16.4 H (4.5-10.0) K/mm3 RBC 4.88 (4.2-5.4) M/mm3 Hgb 13.3 (12.0-15.0) g/dL Hct 40.0 (37.0-47.0) % MCV 82.0 (80-100) fl MCH 27.3 (26-34) pg MCHC 33.3 (32-36) g/dl RDW 14.7 H (11.5-14.5) % Plt Count 277 (150-375) k/mm3 MPV 10.1 (7.4-10.4) fl Immature Gran % (Auto) 0.7 H (0-0.5) % Neut % (Auto) 87.1 H (45.5-73.1) % Lymph % (Auto) 5.5 L (18.3-44.2) % [place] % (Auto) 6.4 (2.6-8.5) % Eos % (Auto) 0.0 (0-4.4) % Baso % (Auto) 0.3 (0.2-1.2) % Lymph # (Auto) 0.91 (0.9-3.2) K/mm3 [place] # (Auto) 1.1 H (0.1-0.6) K/mm3 Eos # (Auto) 0.0 (0-0.3) K/mm3 Baso # (Auto) 0.1 (0.0-0.1) K/mm3 Abs Immat Gran (auto) 0.11 H (0.00-0.031) K/mm3 Absolute Neuts (auto) 14.3 H (1.3-6.7) K/mm3 Absolute Nucleated RBC 0.000 (0.0-0.012) K/mm3 Nucleated RBC % 0.0 (0.0-0.2) % PT 13.8 (11.1-14.7) Seconds INR 1.0 APTT 27.9 (22.3-36.8) Seconds Sodium 133 L (137-145) mmol/L Potassium 4.4 (3.4-5.0) mmol/L Chloride 97 L (98-107) mmol/L Carbon Dioxide 29 (22-30) mmol/L Anion Gap 7 (4-12) mmol/L BUN 23 H D (7-17) mg/dL Creatinine 1.50 H (0.7-1.0) mg/dL Estim Creat Clear Calc Not Reportable Estimated GFR 34 L (59 - ) Glucose 159 H (65-110) mg/dL Lactic Acid 1.0 (0.7-2.0) mmol/L Calcium 8.9 (8.4-10.2) mg/dL Magnesium 2.2 (1.6-2.3) mg/dL Total Bilirubin 0.5 (0.2-1.3) mg/dL AST 23 (14-36) U/L ALT 15 (6-35) U/L Alkaline Phosphatase 101 (38-126) U/L Troponin I < 0.012 (0.000-0.034) ng/mL NT-Pro-B Natriuret Pep 318 H (19.9-100) pg/mL Total Protein 7.0 (6.3-8.2) g/dL Albumin 4.4 (3.5-5.1) g/dL Lipase 100 (23-300) U/L Procalcitonin 0.1 ng/mL Urine Color Yellow (Yellow) Urine Appearance Clear (Clear) Urine pH 7.0 (5.0-9.0) Ur Specific [place] 1.020 (1.001-1.035) Urine Protein Trace (Negative) mg/dL Urine Glucose (UA) Negative (Negative) mg/dL Urine Ketones Negative (Negative) mg/dL Ur Blood (Man) Negative (Negative) Urine Nitrate Negative (Negative) Urine Bilirubin Negative (Negative) Urine Urobilinogen 0.2 (<2.0) mg/dL Add Ur Microanalysis Reviewed Leukocyte Esterase Rfl Negative (Negative) BLANCHE/UL Urine RBC 0-2 (0-2) /hpf Urine WBC 0-5 (0-3) /hpf Ur Squamous Epith Cells None seen (Few) /hpf Urine Bacteria None seen /hpf Urine Casts 0-2 Influenza A (RT-PCR) Negative (Negative) Influenza B (RT-PCR) Negative (Negative) RSV (RT-PCR) Negative (Negative) SARS-CoV-2 RNA (RT-PCR) Negative (Negative) Discharge Plan Discharge Clinical Impression: Fall from ground level, Acute dehydration, Generalized weakness Patient Disposition: Home, Self-Care Condition: Stable Instructions: Antibiotic Form, Dehydration (ED), Weakness (ED), Fall Prevention (ED) Prescriptions: No Action diclofenac sodium 1 % gel 4 g topical TID Qty: 100 0RF Rx Instructions: apply to single knee, ankle, foot; for foot includes sole/toes/top of foot magnesium 250 mg tablet 500 mg PO DAILY (DME) Accu-Chek SmartView Test Strip Strip See Rx Instructions .ROUTE .COMPLEX Qty: 200 1RF Dose Instruction: USE 1 STRIP TO CHECK GLUCOSE THREE TIMES DAILY Rx Instructions: USE 1 STRIP TO CHECK GLUCOSE THREE TIMES DAILY (DME) NovoFine Plus 32 gauge x 1/6 needle See Rx Instructions .Route Qty: 100 1RF Rx Instructions: Ase as directed with insulin pen aspirin 81 mg Tablet 81 mg PO DAILY lidocaine 5 % adhesive patch,medicated 1 patch topical DAILY Qty: 30 0RF Rx Instructions: leave on most painful area for up to 12 hrs Januvia 100 mg tablet 100 mg PO DAILY Qty: 90 2RF citalopram 20 mg tablet See Rx Instructions .ROUTE .COMPLEX Qty: 90 1RF Dose Instruction: Take 1 tablet by mouth once daily Rx Instructions: Take 1 tablet by mouth once daily insulin glargine [Basaglar KwikPen U-100 Insulin] 100 unit/mL (3 mL) insulin pen 30 unit subcut QPM Qty: 15 5RF amlodipine 5 mg tablet 5 mg PO DAILY Qty: 90 1RF atorvastatin 40 mg tablet See Rx Instructions .ROUTE .COMPLEX Qty: 90 2RF Dose Instruction: TAKE 1 TABLET BY MOUTH EVERY DAY Rx Instructions: TAKE 1 TABLET BY MOUTH EVERY DAY ezetimibe 10 mg tablet See Rx Instructions .ROUTE .COMPLEX Qty: 90 2RF Dose Instruction: TAKE 1 TABLET BY MOUTH EVERY DAY Rx Instructions: TAKE 1 TABLET BY MOUTH EVERY DAY hydralazine 25 mg tablet See Rx Instructions .ROUTE .COMPLEX Qty: 540 2RF Dose Instruction: TAKE 3 TABLETS BY MOUTH TWICE A DAY Rx Instructions: TAKE 3 TABLETS BY MOUTH TWICE A DAY omeprazole 40 mg capsule,delayed release(DR/EC) See Rx Instructions .ROUTE .COMPLEX Qty: 180 2RF Dose Instruction: TAKE 1 CAPSULE BY MOUTH TWICE A DAY Rx Instructions: TAKE 1 CAPSULE BY MOUTH TWICE A DAY gabapentin 400 mg capsule See Rx Instructions PO BID Qty: 360 1RF Rx Instructions: 2 tablet in the morning and 2 at night. Follow-up/Referrals: Terrell Resendez APRN [Primary Care Provider] - Time of Disposition: 00:18
== END 2024-04-22 00:28 | disposition home or self-care (01) ==
PROVIDERS: Emergency Provider Emergency Medicine; PCP Nurse Practitioner
DX: R53.1 Weakness (principal); E86.0 Dehydration; I10 Essential (primary) hypertension; E11.9 Type 2 diabetes mellitus without complications; E78.5 Hyperlipidemia, unspecified; D64.9 Anemia, unspecified; Z85.42 Personal history of malignant neoplasm of other parts of uterus; Z86.73 Personal history of transient ischemic attack (TIA), and cerebral infarction without residual deficits; Z90.710 Acquired absence of both cervix and uterus; Z79.82 Long term (current) use of aspirin; Z79.84 Long term (current) use of oral hypoglycemic drugs; Z79.4 Long term (current) use of insulin; Z79.899 Other long term (current) drug therapy; W18.30XA Fall on same level, unspecified, initial encounter
CPT/HCPCS: 36415; 70450; 71045; 72125; 73030; 73502; 80053; 81001; 83605; 83690; 83735; 83880; 84145; 84484; 85025; 85610; 85730; 87637; 96360; 99284; J7030

== ENCOUNTER 2024-04-23 12:13 | Inpatient (IN) | payer MEDICARE, SELFPAY ==
[2024-04-23] VITALS (7 sets, daily range): BP systolic 122–134; BP diastolic 57–71; PULSE 95–103; RESP 13–19; TEMP 36.7–38.1; O2SAT 96–97; BMI 30.4
--- NOTE | ~2024-04-23 | XR_ITS ---
EXAMINATION: XR chest 1V portable DATE: 04/23/2024 14:07 INDICATION: Weakness. Diarrhea. TECHNIQUE: A single frontal view of the chest was obtained. COMPARISON: Chest view 04/21/2024, CT abdomen and pelvis 12/05/2020 FINDINGS: There is no pneumonia, pleural effusion, or pneumothorax. The heart size is normal. IMPRESSION: 1. No acute cardiopulmonary disease. Reviewed, dictated and finalized at location A. [employer]
--- NOTE | 2024-04-23 13:46 | ECG_ITS ---
Test Date: 2024-04-23 13:50:02 Measurements Intervals [place] Rate: 89 P: 29 MD: 157 QRS: -6 QRSD: 68 T: 19 QT: 340 QTc: 415 Interpretive Statements SINUS RHYTHM POSSIBLE INFERIOR MYOCARDIAL INFARCTION , PROBABLY OLD [30 ms Q WAVE IN II/aVF] No previous ECG available for comparison Electronically Signed On 04-23-2024 15:32:59 DATA MANAGEMENT by Sunitha Foster M.D.
[2024-04-23 14:12] LABS: Basophils Percent Auto 0.3 % (0.2-1.2); Eosinophils Percent Auto 0.3 % (0-4.4); Hematocrit 38.8 % (37.0-47.0); Hemoglobin 12.8 g/dL (12.0-15.0); Immature Granulocyte Absolute 0.06 K/mm3 (0.00-0.031); Immature Granulocyte Percent A 0.5 % (0-0.5); Lymphocytes Absolute Auto 1.05 K/mm3 (0.9-3.2); Lymphocytes Percent Auto 9.1 % (18.3-44.2); Mean Corpuscular Hemoglobin 26.9 pg (26-34); Mean Corpuscular Volume 81.5 fl (80-100); Mean Platelet Volume 9.6 fl (7.4-10.4); Monocytes Percent Auto 8.2 % (2.6-8.5); Neutrophils Absolute Auto 9.5 K/mm3 (1.3-6.7); Neutrophils Percent Auto 81.6 % (45.5-73.1); Platelet Count Result 238 k/mm3 (150-375); Red Blood Count 4.76 M/mm3 (4.2-5.4); Red Cell Distribution Width 14.9 % (11.5-14.5); White Blood Count 11.6 K/mm3 (4.5-10.0)
--- NOTE | 2024-04-23 14:21 | ED_ITS ---
HPI - General Adult General Chief complaint: Weakness Stated complaint: weakness Time Seen by Provider: 04/23/24 13:37 History of Present Illness HPI narrative: 78-year-old female presents emergency department for evaluation for increased generalized weakness. Patient did have increased generalized weakness a few days ago and was evaluated emergency department for a fall. Patient had no injury from the fall but does have some right-sided rib pain. Patient states she has still had increasing weakness, she has pain with urination and she has had multiple episodes of diarrhea. Patient does but home on her own, patient's family states that the patient has had 2 additional falls without injury. Related Data Home Medications Medication Instructions Recorded Confirmed aspirin 81 mg tablet 81 mg PO DAILY 12/05/20 08/16/23 magnesium 250 mg tablet 500 mg PO DAILY 01/02/24 Allergies Allergy/AdvReac Type Severity Reaction Status Date / Time Sulfa (Sulfonamide Allergy Intermediate RASH,HIVE Verified 04/23/24 12:22 Antibiotics) codeine AdvReac Intermediate VOMITING Verified 04/23/24 12:22 AND MIGRAINES fentanyl AdvReac Intermediate MIGRAINE,VO Verified 04/23/24 12:22 MITING hydrocodone AdvReac Intermediate MIGRAINE,VO Verified 04/23/24 12:22 MITING lisinopril AdvReac Intermediate COUGH Verified 04/23/24 12:22 metoprolol AdvReac Intermediate migraines,v Verified 04/23/24 12:22 omiting belladonna alkaloids AdvReac Mild MIGRAINE,VO Verified 04/23/24 12:22 MITING cephalexin AdvReac Mild Vomiting Verified 04/23/24 12:22 phenobarbital AdvReac Mild MIGRAINES,V Verified 04/23/24 12:22 OMITING morphine AdvReac Unknown MIGRAINE,VO Verified 04/23/24 12:22 MITING Review of Systems Review of Systems: All systems reviewed & are unremarkable except as noted in HPI and below PMFSH Past Medical History Medical History Aphasia Chronic anemia Chronic pruritus CVA (cerebral vascular accident) Diabetes 02/02/21 A1C = 6.6 DM w/o complication type II, uncontrolled Hyperlipidemia Hypertension Medial epicondylitis of right elbow Uterine cancer Surgical History Surgical History H/O arthroscopic knee surgery bilateral - over 10 years ago, per pt H/O: hysterectomy Family History Family History Father Family history of blood dyscrasia Family history of Alzheimer's disease Family history of macular degeneration Mother Family history of chronic obstructive pulmonary disease Family history of coronary artery disease Family history of malignant neoplasm of esophagus Grandparent Carcinoma of colon Sibling Family history of type 2 diabetes mellitus Other Family history of malignant neoplasm of breast Social History Social History Social History: patient recently had a stroke 10/09 and was at [facility] for last week and half. When she leaves here she is going to move in with her son Chin in [place]. her son Chin Resendez will be her surrogate and patient wishes to be a full code. Currently patient lives with no other pets Smoking status: Never smoker Second hand tobacco smoke exposure: Yes Alcohol intake: never Alcohol use details: Social Substance use: never Substance use type: does not use Lack of Transportation: YES Lack of Food: Never True Current Housing: I Have Housing Concerned About Future Housing: No Difficulty Paying Gas/Electric Bills: Decline to Answer Difficulty Paying for Meds: No Currently Unemployed: Decline to Answer Education: High School Diploma/GED Difficulty w/ Childcare or Family Care: No Living arrangements: [facility]dc Occupation/Education: retired Gender identity (if verbalized by the patient): Female Sexual Orientation (if Verbalized by the Patient): Straight or Heterosexual Spiritual care concerns: No Exam Narrative: APPEARANCE: Ill-appearing HEAD: normocephalic, atraumatic. EYES: PERRLA/EOMI, conjunctivae clear. NOSE: Normal no drainage EARS:TMS clear with good light reflex. THROAT: Pharynx clear, no exudate. NECK: Supple. No adenopathy, no masses. RESPIRATORY: Airway patent, respirations nonlabored. Clear to auscultation bilaterally, no rales, rhonchi, wheezing. CARDIOVASCULAR: Regular rate and rhythm without murmurs rubs or gallops. ABDOMINAL: Soft, nontender, nondistended, normal bowel sounds MUSCULOSKELETAL: Moves all extremities. Strength/ROM intact, No edema, No calf tenderness. NEURO: Alert. Cranial nerves II through XII intact. Grossly intact SKIN: Warm, dry. Normal Color Course Vital Signs Vital signs: Vital Signs Temperature 98.1 F 04/23/24 12:18 Pulse Rate 96 04/23/24 12:18 Respiratory Rate 16 04/23/24 12:18 Blood Pressure 134/71 04/23/24 12:18 Pulse Oximetry 97 04/23/24 12:18 Oxygen Delivery Room Air 04/23/24 12:18 Temperature 98.1 F 04/23/24 12:18 Pulse Rate 103 H 04/23/24 18:51 Respiratory Rate 19 04/23/24 18:51 Blood Pressure 129/69 04/23/24 18:51 Pulse Oximetry 97 04/23/24 18:51 Oxygen Delivery Room Air 04/23/24 12:18 Medical Decision Making MDM Narrative Medical decision making narrative: 78-year-old female presented emergency department for evaluation for increased generalized weakness and urinary symptoms. Patient is afebrile with a leukocytosis of 11.6 and hemoglobin of 12.8. Patient does have a creatinine of 1.4 urine was significant for urinary tract infection is positive for nitrates leukocyte esterase red blood cells and high white blood cells with high bacteria. Patient his no concerning previous urinary cultures up patient was started on Rocephin did urine culture is pending. Patient family updated the results of the workup plan for admission. Differential Diagnosis Differential Diagnosis: Pneumonia, UTI, COVID, RSV, influenza Vital Signs Vital Signs: Vital Signs Temperature 98.1 F 04/23/24 12:18 Pulse Rate 96 04/23/24 12:18 Respiratory Rate 16 04/23/24 12:18 Blood Pressure 134/71 04/23/24 12:18 Pulse Oximetry 97 04/23/24 12:18 Oxygen Delivery Room Air 04/23/24 12:18 Temperature 98.1 F 04/23/24 12:18 Pulse Rate 103 H 04/23/24 18:51 Respiratory Rate 19 04/23/24 18:51 Blood Pressure 129/69 04/23/24 18:51 Pulse Oximetry 97 04/23/24 18:51 Oxygen Delivery Room Air 04/23/24 12:18 Lab Data Lab results reviewed: Yes I reviewed the patient's lab results. 04/23/24 14:07 04/23/24 14:07 Labs: Lab Results 04/23/24 04/23/24 Range/Units 14:07 14:33 WBC 11.6 H (4.5-10.0) K/mm3 RBC 4.76 (4.2-5.4) M/mm3 Hgb 12.8 (12.0-15.0) g/dL Hct 38.8 (37.0-47.0) % MCV 81.5 (80-100) fl MCH 26.9 (26-34) pg MCHC 33.0 (32-36) g/dl RDW 14.9 H (11.5-14.5) % Plt Count 238 (150-375) k/mm3 MPV 9.6 (7.4-10.4) fl Immature Gran % (Auto) 0.5 (0-0.5) % Neut % (Auto) 81.6 H (45.5-73.1) % Lymph % (Auto) 9.1 L (18.3-44.2) % [place] % (Auto) 8.2 (2.6-8.5) % Eos % (Auto) 0.3 (0-4.4) % Baso % (Auto) 0.3 (0.2-1.2) % Lymph # (Auto) 1.05 (0.9-3.2) K/mm3 [place] # (Auto) 1.0 H (0.1-0.6) K/mm3 Eos # (Auto) 0.0 (0-0.3) K/mm3 Baso # (Auto) 0.0 (0.0-0.1) K/mm3 Abs Immat Gran (auto) 0.06 H (0.00-0.031) K/mm3 Absolute Neuts (auto) 9.5 H (1.3-6.7) K/mm3 Absolute Nucleated RBC 0.000 (0.0-0.012) K/mm3 Nucleated RBC % 0.0 (0.0-0.2) % PT 13.6 (11.1-14.7) Seconds INR 1.0 APTT 27.1 (22.3-36.8) Seconds Sodium 134 L (137-145) mmol/L Potassium 3.5 (3.4-5.0) mmol/L Chloride 100 (98-107) mmol/L Carbon Dioxide 27 (22-30) mmol/L Anion Gap 7 (4-12) mmol/L BUN 19 H (7-17) mg/dL Creatinine 1.40 H (0.7-1.0) mg/dL Estim Creat Clear Calc Not Reportable Estimated GFR 37 L (59 - ) Glucose 116 H (65-110) mg/dL Calcium 8.6 (8.4-10.2) mg/dL Total Bilirubin 0.6 (0.2-1.3) mg/dL AST 28 (14-36) U/L ALT 15 (6-35) U/L Alkaline Phosphatase 93 (38-126) U/L Total Protein 7.0 (6.3-8.2) g/dL Albumin 3.9 (3.5-5.1) g/dL Urine Color Dark yellow (Yellow) Urine Appearance Turbid H (Clear) Urine pH 6.0 (5.0-9.0) Ur Specific [place] 1.029 (1.001-1.035) Urine Protein 2+ H (Negative) mg/dL Urine Glucose (UA) Negative (Negative) mg/dL Urine Ketones Trace H (Negative) mg/dL Ur Blood (Man) Negative (Negative) Urine Nitrate Positive H (Negative) Urine Bilirubin 1+ H (Negative) Urine Urobilinogen 1.0 (<2.0) mg/dL Add Ur Microanalysis Reviewed Leukocyte Esterase Rfl 2+ H (Negative) BLANCHE/UL Urine RBC 6-10 H (0-2) /hpf Urine WBC >100 H (0-3) /hpf Ur Squamous Epith Cells Few (Few) /hpf Urine Bacteria 4+ H /hpf Urine Casts >20 Hyaline Casts Present (None) /lpf Urine Mucus Present /lpf Influenza A (RT-PCR) Negative (Negative) Influenza B (RT-PCR) Negative (Negative) RSV (RT-PCR) Negative (Negative) SARS-CoV-2 RNA (RT-PCR) Negative (Negative) Imaging Data Radiologist's impression: Impressions Chest X-Ray 04/23/24 14:08 IMPRESSION: 1. No acute cardiopulmonary disease. Discharge Plan Discharge Clinical Impression: Generalized weakness, Acute UTI Patient Disposition: Still a Patient Condition: Serious Prescriptions: No Action diclofenac sodium 1 % gel 4 g topical TID Qty: 100 0RF Rx Instructions: apply to single knee, ankle, foot; for foot includes sole/toes/top of foot magnesium 250 mg tablet 500 mg PO DAILY (DME) Accu-Chek SmartView Test Strip Strip See Rx Instructions .ROUTE .COMPLEX Qty: 200 1RF Dose Instruction: USE 1 STRIP TO CHECK GLUCOSE THREE TIMES DAILY Rx Instructions: USE 1 STRIP TO CHECK GLUCOSE THREE TIMES DAILY (DME) NovoFine Plus 32 gauge x 1/6 needle See Rx Instructions .Route Qty: 100 1RF Rx Instructions: Ase as directed with insulin pen aspirin 81 mg Tablet 81 mg PO DAILY lidocaine 5 % adhesive patch,medicated 1 patch topical DAILY Qty: 30 0RF Rx Instructions: leave on most painful area for up to 12 hrs Januvia 100 mg tablet 100 mg PO DAILY Qty: 90 2RF citalopram 20 mg tablet See Rx Instructions .ROUTE .COMPLEX Qty: 90 1RF Dose Instruction: Take 1 tablet by mouth once daily Rx Instructions: Take 1 tablet by mouth once daily insulin glargine [Basaglar KwikPen U-100 Insulin] 100 unit/mL (3 mL) insulin pen 30 unit subcut QPM Qty: 15 5RF amlodipine 5 mg tablet 5 mg PO DAILY Qty: 90 1RF atorvastatin 40 mg tablet See Rx Instructions .ROUTE .COMPLEX Qty: 90 2RF Dose Instruction: TAKE 1 TABLET BY MOUTH EVERY DAY Rx Instructions: TAKE 1 TABLET BY MOUTH EVERY DAY ezetimibe 10 mg tablet See Rx Instructions .ROUTE .COMPLEX Qty: 90 2RF Dose Instruction: TAKE 1 TABLET BY MOUTH EVERY DAY Rx Instructions: TAKE 1 TABLET BY MOUTH EVERY DAY hydralazine 25 mg tablet See Rx Instructions .ROUTE .COMPLEX Qty: 540 2RF Dose Instruction: TAKE 3 TABLETS BY MOUTH TWICE A DAY Rx Instructions: TAKE 3 TABLETS BY MOUTH TWICE A DAY omeprazole 40 mg capsule,delayed release(DR/EC) See Rx Instructions .ROUTE .COMPLEX Qty: 180 2RF Dose Instruction: TAKE 1 CAPSULE BY MOUTH TWICE A DAY Rx Instructions: TAKE 1 CAPSULE BY MOUTH TWICE A DAY gabapentin 400 mg capsule See Rx Instructions PO BID Qty: 360 1RF Rx Instructions: 2 tablet in the morning and 2 at night. Follow-up/Referrals: Terrell Resendez APRN [Primary Care Provider] -
[2024-04-23 14:26] LABS: Prothrombin Time 13.6 Seconds (11.1-14.7)
[2024-04-23 14:27] LABS: Partial Thromboplastin Time 27.1 Seconds (22.3-36.8)
[2024-04-23 14:35] LABS: Alanine Aminotransferase 15 U/L (6-35); Albumin Level 3.9 g/dL (3.5-5.1); Alkaline Phosphatase 93 U/L (38-126); Anion Gap 7 mmol/L (4-12); Aspartate Amino Transferase 28 U/L (14-36); Bilirubin,Total 0.6 mg/dL (0.2-1.3); Blood Urea Nitrogen 19 mg/dL (7-17); Calcium 8.6 mg/dL (8.4-10.2); Carbon Dioxide 27 mmol/L (22-30); Chloride 100 mmol/L (98-107); Estimated Glomerular Filt Rate 37; Glucose 116 mg/dL (65-110); Potassium 3.5 mmol/L (3.4-5.0); Sodium 134 mmol/L (137-145)
[2024-04-23 14:49] LABS: Influenza A QL RT-PCR Negative (Negative); Influenza B QL RT-PCR Negative (Negative); RSV RNA, RT-PCR Negative (Negative); SARS-CoV-2 RNA PCR Negative (Negative)
[2024-04-23 15:24] LABS: Add Urine Microscopic? YES; Appearance Urine Turbid (Clear); Bacteria Urine 4+ /hpf; Bilirubin Urine 1+ (Negative); Blood Urine Negative (Negative); Color Urine Dark Yellow (Yellow); Glucose Urine UA Negative (Negative); Hyaline Casts Urine Present /lpf; Ketones Urine Trace mg/dL (Negative); Leukocyte Esterase Ur 2+ LEU/UL (Negative); Mucus Urine Present /lpf; Need Manual Microscopic Reviewed; Nitrate Urine Positive (Negative); Non Pathogenic Casts >20; Protein Urine 2+ mg/dL (Negative); Specific Grav Ur 1.029 (1.001-1.035); Squamous Epithelial Cell Urine Few /hpf (Few); WBC Urine >100 /hpf (0-3)
--- NOTE | 2024-04-23 16:11 | PM.IMHP ---
H&P: HPI History of Present Illness Date/Time: 04/23/24 16:11 Chief Complaint: Weakness, Polyuria Narrative: 78 y/o F presents here with weakness, polyuria, and diarrhea with PMH of CVA, aphasia, chronic anemia, diabetes, hyperlipidemia, hypertension, and uterine cancer s/p hysterectomy. The patient presents here from home for further evaluation of worsening generalized weakness, dysuria, and diarrhea. The patient was originally evaluated on 04/22/2024 after she had a ground level fall due to generalized weakness. At that visit she reported 1 episode of incontinence of stool post fall, generalized weakness, reduced energy, and concern for dehydration. Imaging at that time was concerning for a possible nondisplaced right 7th and 8th rib fracture. Patient did not have point tenderness at the time. She was ultimately discharged home. She is now returning today due to worsening generalized weakness that has caused 2 additional weak episodes. Both episodes she felt very weak and had to lower herself to the ground and then was unable to get herself back up. The patient is now reporting some right-sided rib pain. She has also developed dysuria and continues to have diarrhea. Dysuria is not accompanied by hematuria, suprapubic pain or tenderness. Diarrhea is not accompanied by abdominal. Diarrhea has been a green to yellow color. Estimates she has been going 4-5 times per day. No recent abx courses or recent admissions. Denies fever, chills, or body aches. The patient currently lives at home by herself, occasionally will receive help from family but is largely independent. Initial VS at presentation: 98.1? F, HR 96, RR 16, 134/71, and 97% on RA. ED workup showed: WBC 11.6, no anemia, normal coags, sodium 134, creatinine 1.4 and GFR 37 (previously 1.5 and GFR 34 on 04/21/2024), glucose 116. UA consistent with UTI. CXR showed no acute cardiopulmonary disease. Review of Systems Review of Systems: All systems reviewed & are unremarkable except as noted in HPI and below [facility] Past Medical History Medical History Aphasia Chronic anemia Chronic pruritus CVA (cerebral vascular accident) Diabetes 02/02/21 A1C = 6.6 DM w/o complication type II, uncontrolled Hyperlipidemia Hypertension Medial epicondylitis of right elbow Uterine cancer Surgical History Surgical History H/O arthroscopic knee surgery bilateral - over 10 years ago, per pt H/O: hysterectomy Family History Family History Father Family history of blood dyscrasia Family history of Alzheimer's disease Family history of macular degeneration Mother Family history of chronic obstructive pulmonary disease Family history of coronary artery disease Family history of malignant neoplasm of esophagus Grandparent Carcinoma of colon Sibling Family history of type 2 diabetes mellitus Other Family history of malignant neoplasm of breast Social History Social History Social History: patient recently had a stroke 10/09 and was at [place] for last week and half. When she leaves here she is going to move in with her son Chin in [place]. her son Chin Resendez will be her surrogate and patient wishes to be a full code. Currently patient lives with no other pets Smoking status: Never smoker Second hand tobacco smoke exposure: Yes Alcohol intake: never Alcohol use details: Social Substance use: never Substance use type: does not use Do You Feel Safe in your Home?: Yes Lack of Transportation: YES Lack of Food: Never True Current Housing: I Have Housing Concerned About Future Housing: No Difficulty Paying Gas/Electric Bills: Decline to Answer Difficulty Paying for Meds: No Currently Unemployed: Decline to Answer Education: High School Diploma/GED Difficulty w/ Childcare or Family Care: No Living arrangements: skilled nursing Occupation/Education: retired Gender identity (if verbalized by the patient): Female Sexual Orientation (if Verbalized by the Patient): Straight or Heterosexual Spiritual care concerns: No Meds Home Medications and Allergies Home Medications Medication Instructions Recorded Confirmed Type aspirin 81 mg tablet 81 mg PO DAILY 12/05/20 04/23/24 History sitagliptin phosphate 100 mg 100 mg PO DAILY #90 tabs 06/01/23 04/23/24 Rx tablet (Januvia) blood sugar diagnostic (Accu-Chek #200 ea 01/02/24 04/23/24 Rx SmartView Test Strips) pen needle, diabetic 32 gauge x #100 ea 01/02/24 04/23/24 Rx 1/6 (NovoFine Plus) amlodipine 5 mg tablet 5 mg PO DAILY #90 tabs 02/02/24 04/23/24 Rx insulin glargine 100 unit/mL (3 30 unit (0.3 mL) subcut QPM #15 mL 02/02/24 04/23/24 Rx mL) subcutaneous pen (Basaglar KwikPen U-100 Insulin) atorvastatin 40 mg tablet See Rx Instructions .Route 02/12/24 04/23/24 Rx .COMPLEX #90 tabs citalopram 20 mg tablet 20 mg PO DAILY 04/23/24 04/23/24 History ezetimibe 10 mg tablet 10 mg PO DAILY 04/23/24 04/23/24 History gabapentin 400 mg capsule 800 mg PO BID 04/23/24 04/23/24 History hydralazine 25 mg tablet 75 mg PO BID 04/23/24 04/23/24 History omeprazole 40 mg capsule,delayed 40 mg PO BID 04/23/24 04/23/24 History release Allergies Allergy/AdvReac Type Severity Reaction Status Date / Time Sulfa (Sulfonamide Allergy Intermediate RASH,HIVE Verified 04/23/24 19:24 Antibiotics) codeine AdvReac Intermediate VOMITING Verified 04/23/24 19:24 AND MIGRAINES fentanyl AdvReac Intermediate MIGRAINE,VO Verified 04/23/24 19:24 MITING hydrocodone AdvReac Intermediate MIGRAINE,VO Verified 04/23/24 19:24 MITING lisinopril AdvReac Intermediate COUGH Verified 04/23/24 19:24 metoprolol AdvReac Intermediate migraines,v Verified 04/23/24 19:24 omiting belladonna alkaloids AdvReac Mild MIGRAINE,VO Verified 04/23/24 19:24 MITING cephalexin AdvReac Mild Vomiting Verified 04/23/24 19:24 phenobarbital AdvReac Mild MIGRAINES,V Verified 04/23/24 19:24 OMITING morphine AdvReac Unknown MIGRAINE,VO Verified 04/23/24 19:24 MITING Vital Signs Vital Signs - 24 hr 04/23/24 12:18 Temperature 98.1 F Pulse Rate 96 Respiratory Rate 16 Blood Pressure 134/71 Pulse Oximetry 97 Oxygen Delivery Room Air Exam Const: General: comfortable and no acute distress Other: , female, mildly ill appearing, nontoxic appearance HENMT: Face/Nose/Sinus: Normal nares present Mouth: Yes moist mucous membranes Eyes: General: appearance normal, both eyes and all related structures Sclera: sclerae normal Pupils: Equal, round and reactive pupils present EOM: EOMs intact bilaterally Resp: Effort & Inspection: normal respiratory effort Auscultation: clear to auscultation bilaterally Cardio: Rate: regular rate Rhythm: regular rhythm Other: S1-S2 present without murmur, rub, ectopy GI: Other: Abdomen soft, nondistended, nontender. Skin: General skin exam: normal color and no rashes or lesions noted Wounds: no wounds Other: + diffuse heat, skin remains dry. Neuro: Speech: normal speech Motor exam (neuro): 5/5 motor strength present throughout Sensory Exam: normal sensation Other: A&O x4, generalized weakness. Extrem: General: normal to inspection Psych: Mental Status: mental status grossly normal Affect: normal affect Other: Good insight and judgment, very pleasant. H&P: Results Labs Labs: Short CBC 04/23/24 Range/Units 14:07 WBC 11.6 H (4.5-10.0) K/mm3 Hgb 12.8 (12.0-15.0) g/dL Hct 38.8 (37.0-47.0) % Plt Count 238 (150-375) k/mm3 BMP 04/23/24 14:07 Sodium 134 L Potassium 3.5 Chloride 100 Carbon Dioxide 27 BUN 19 H Creatinine 1.40 H Glucose 116 H Calcium 8.6 Liver Function 04/23/24 Range/Units 14:07 Total Bilirubin 0.6 (0.2-1.3) mg/dL AST 28 (14-36) U/L ALT 15 (6-35) U/L Alkaline Phosphatase 93 (38-126) U/L Albumin 3.9 (3.5-5.1) g/dL Urine 04/23/24 Range/Units 14:33 Urine Color Dark yellow (Yellow) Urine Appearance Turbid H (Clear) Urine pH 6.0 (5.0-9.0) Ur Specific [place] 1.029 (1.001-1.035) Urine Protein 2+ H (Negative) mg/dL Urine Glucose (UA) Negative (Negative) mg/dL Assessment and Plan Assessment and plan (1) Acute UTI: Code(s): N39.0 - Urinary tract infection, site not specified Status: Acute Assessment and Plan: - did not meet SIRS criteria - UA: Turbid, 2+ protein, trace ketones, positive nitrates, 1+ bilirubin, 2+ leuks, 6-10 RBC, greater than 100 WBC, few epithelial cells, 4+ bacteria - UC pending - previous micro reviewed, Pseudomonas in 2020. - started on Ceftriaxone on 04/23 (2) Generalized weakness: Code(s): R53.1 - Weakness Status: Acute Assessment and Plan: - viral PCR negative - ongoing diarrhea w/o abd pain, will add C diff and stool culture - IV fluids: 1L bolus and 100 mL/hr x1L - consider PT/OT eval and treat if no improvement in weakness with abx and IV fluids (3) Rib pain: Code(s): R07.81 - Pleurodynia Status: Acute Assessment and Plan: - CXR, previous (04/21/24): Subsegmental right basilar opacities, may represent atelectasis, infection, or pulmonary contusion in the setting of trauma. Possible nondisplaced right anterolateral seventh and lateral eighth rib fractures. - CXR: No acute cardiopulmonary disease - incentive spirometer - lidocaine patch (4) Type 2 diabetes mellitus: Qualifiers: Diabetes mellitus complication detail: with other circulatory complications Diabetes mellitus complication status: with circulatory complication Diabetes mellitus long-term insulin use: with terminal superintendent use Qualified Code(s): E11.59 - Type 2 diabetes mellitus with other circulatory complications; Z79.4 - terminal makeup operator (current) use of insulin Code(s): E11.9 - Type 2 diabetes mellitus without complications Status: Acute Assessment and Plan: - hypoglycemia protocol - POC blood glucose ACHS - home medication: Lantus 30 units HS, Januvia 100 mg daily - correct regimen ordered - moderate dose TIDWM, based off BMI - A1C 6.7% on 12/30/2023, update (5) Hypertension: Qualifiers: Hypertension type: primary hypertension Qualified Code(s): I10 - Essential (primary) hypertension Code(s): I10 - Essential (primary) hypertension Status: Chronic Assessment and Plan: - chronic, currently 133/58 - continue home medications: Amlodipine unit 5 mg daily, hydralazine 75 mg b.i.d. - monitor Plan Diet: Diabetic GI Prophylaxis: Not currently indicated DVT Prophylaxis: SCDs Lines: Peripheral Code Status: Full code Quality VTE Prophylaxis VTE prophylaxis: mechanical ordered Hospitalist MIPS Advance Care Plan I have confirmed that the patient's Advanced Care Plan is present, code status is documented, or surrogate decision maker is listed in patient medical record.: Yes Medication Reconciliation I have utilized all available resources to obtain, update and review the patients current medications (includes all prescriptions, OTC, herbals, cannabis, and nutritional supplements).: Yes
[2024-04-23] MEDS: SODIUM CHLORIDE 0.9% IV 1,000 ML 100 ML IV CONT (18:40)
[2024-04-23] MEDS: LIDOCAINE 5% PATCH 1 PATCH TRANSDERM (18:40)
[2024-04-23 21:15] LABS: Glucose Point of Care 112 mg/dl (65-105)
[2024-04-23] MEDS: ACETAMINOPHEN 325 MG TABLET 650 MG PO (21:17)
[2024-04-23] MEDS: SODIUM CHLORIDE 0.9% IV 1,000 ML 999 ML IV CONT (22:34)
--- NOTE | 2024-04-23 22:53 | ADMGEN ---
This patient, Shandra Wilson, was admitted to 3 Med Surg Room 328-01. Patient/family oriented to hospital policies and general routines including ID bracelet, bed and alarms, visiting hours, pain management, procedures, bathroom and other care routines, personal items, smoking policy, room service/diet, and visiting hours. Information on how to activate the Rapid Response Team has been discussed. Patient/Family are encouraged to report perceived risks to care and to ask questions if they do not understand what they are told or what they should do.
[2024-04-24] VITALS (7 sets, daily range): BP systolic 105–137; BP diastolic 40–50; PULSE 86–111; RESP 14–20; TEMP 36.1–37.9; O2SAT 91–96
[2024-04-24] MEDS: GABAPENTIN 400 MG CAPSULE 800 MG PO ×3 (00:01→17:02)
[2024-04-24] MEDS: hydrALAZINE HCL 25 MG TABLET 75 MG PO ×3 (00:01→17:02)
[2024-04-24] MEDS: PANTOPRAZOLE 40 MG TABLET PO ×3 (00:01→17:02)
[2024-04-24] MEDS: INSULIN GLARGINE (*BKC) 100 UNITS/ML 30 UNITS SUB-Q ×2 (00:02→17:49)
[2024-04-24 05:38] LABS: Toxigenic C. Diff NEGATIVE (NEGATIVE)
[2024-04-24 06:53] LABS: Basophils Percent Auto 0.4 % (0.2-1.2); Eosinophils Percent Auto 0.1 % (0-4.4); Hemoglobin 11.7 g/dL (12.0-15.0); Immature Granulocyte Absolute 0.04 K/mm3 (0.00-0.031); Immature Granulocyte Percent A 0.4 % (0-0.5); Lymphocytes Absolute Auto 0.58 K/mm3 (0.9-3.2); Lymphocytes Percent Auto 5.6 % (18.3-44.2); Mean Corpuscular HGB Conc 32.5 g/dl (32-36); Mean Corpuscular Volume 83.1 fl (80-100); Mean Platelet Volume 10.5 fl (7.4-10.4); Monocytes Absolute Auto 0.9 K/mm3 (0.1-0.6); Monocytes Percent Auto 8.4 % (2.6-8.5); Neutrophils Absolute Auto 8.9 K/mm3 (1.3-6.7); Neutrophils Percent Auto 85.1 % (45.5-73.1); Platelet Count Result 224 k/mm3 (150-375); Red Blood Count 4.33 M/mm3 (4.2-5.4); Red Cell Distribution Width 14.8 % (11.5-14.5); White Blood Count 10.4 K/mm3 (4.5-10.0)
[2024-04-24 07:08] LABS: Anion Gap 6 mmol/L (4-12); Blood Urea Nitrogen 17 mg/dL (7-17); Calcium 8.1 mg/dL (8.4-10.2); Carbon Dioxide 23 mmol/L (22-30); Chloride 103 mmol/L (98-107); Estimated Glomerular Filt Rate 48; Glucose 104 mg/dL (65-110); Potassium 3.2 mmol/L (3.4-5.0); Sodium 132 mmol/L (137-145)
[2024-04-24 07:55] LABS: Hemoglobin A1C 7.2 % (<5.7)
[2024-04-24 08:07] LABS: Glucose Point of Care 107 mg/dl (65-105)
[2024-04-24] MEDS: LIDOCAINE 5% PATCH 1 PATCH TRANSDERM (08:58)
[2024-04-24] MEDS: amLODIPine BESYLATE 5 MG TABLET PO (08:59)
[2024-04-24] MEDS: ASPIRIN 81 MG CHEWABLE TABLET PO (08:59)
[2024-04-24] MEDS: CITALOPRAM HYDROBROMIDE 20 MG TABLET PO (09:00)
[2024-04-24] MEDS: SITagliptin PHOSPHATE 100 MG TABLET PO (09:00)
[2024-04-24] MEDS: EZETIMIBE 10 MG TABLET PO (09:00)
[2024-04-24] MEDS: ATORVASTATIN 40 MG TABLET PO (09:06)
--- NOTE | 2024-04-24 12:07 | P.PNIM_ITS ---
Progress Note: A&P Assessment and Plan (1) Acute UTI: Code(s): N39.0 - Urinary tract infection, site not specified Status: Acute Assessment and Plan: - did not meet SIRS criteria - UA: Turbid, 2+ protein, trace ketones, positive nitrates, 1+ bilirubin, 2+ leuks, 6-10 RBC, greater than 100 WBC, few epithelial cells, 4+ bacteria - UC pending - previous micro reviewed, Pseudomonas in 2020. - started on Ceftriaxone on 04/23 (2) Generalized weakness: Code(s): R53.1 - Weakness Status: Acute Assessment and Plan: - viral PCR negative - ongoing diarrhea w/o abd pain, will add C diff and stool culture - IV fluids: 1L bolus and 100 mL/hr x1L - PT/OT ordered (3) Rib pain: Code(s): R07.81 - Pleurodynia Status: Acute Assessment and Plan: - CXR, previous (04/21/24): Subsegmental right basilar opacities, may represent atelectasis, infection, or pulmonary contusion in the setting of trauma. Possible nondisplaced right anterolateral seventh and lateral eighth rib fractures. - CXR: No acute cardiopulmonary disease - incentive spirometer - lidocaine patch (4) Type 2 diabetes mellitus: Qualifiers: Diabetes mellitus complication detail: with other circulatory complications Diabetes mellitus complication status: with circulatory complication Diabetes mellitus skilled nursing insulin use: with termite control servicer use Qualified Code(s): E11.59 - Type 2 diabetes mellitus with other circulatory complications; Z79.4 - [facility] (current) use of insulin Code(s): E11.9 - Type 2 diabetes mellitus without complications Status: Acute Assessment and Plan: - hypoglycemia protocol - POC blood glucose ACHS - home medication: Lantus 30 units HS, Januvia 100 mg daily - correct regimen ordered - moderate dose TIDWM, based off BMI - A1C 6.7% on 12/30/2023, update (5) Hypertension: Qualifiers: Hypertension type: primary hypertension Qualified Code(s): I10 - Essential (primary) hypertension Code(s): I10 - Essential (primary) hypertension Status: Chronic Assessment and Plan: - chronic, currently 137/41 - continue home medications: Amlodipine 5 mg daily, hydralazine 75 mg b.i.d. - monitor (6) Diarrhea: Code(s): R19.7 - Diarrhea, unspecified Status: Acute Assessment and Plan: * Add Florastor 250 mg PO BID. * Encourage oral intake. * Monitor stools. * Stool cultures pending. * C. diff negative. (7) Hypokalemia: Code(s): E87.6 - Hypokalemia Status: Acute Assessment and Plan: * Potassium 3.2 * Potassium Chloride 40 meq PO x1 given. * Monitor labs. Plan Diet: Diabetic GI Prophylaxis: Not currently indicated DVT Prophylaxis: SCDs Lines: Peripheral Code Status: Full code Subjective Date/time seen: 04/24/24 12:07 Interval history: Patient reports having diarrhea for the past 4 days. Patient reports 3 episodes of diarrhea today but slowing down. Patient reports that today is the first day she has felt like eating and drinking in the past 4 days. Patient eating a sandwich when I was in the room. Patient denies chest pain, palpitations, nausea, or vomiting. Family at bedside. Review of Systems Review of Systems: All systems reviewed & are unremarkable except as noted in HPI and below Exam Const: General: comfortable and no acute distress Eyes: Sclera: sclerae normal Neck: Neck: supple Resp: Effort & Inspection: normal respiratory effort Auscultation: clear to auscultation bilaterally Cardio: Rate: regular rate Rhythm: regular rhythm GI: GI Palp: Yes Soft to palpation Auscultation: normal bowel sounds Skin: General skin exam: no rashes or lesions noted Other: dry Neuro: Speech: normal speech Other: Generalized weakness Extrem: General: normal to inspection Psych: Mental Status: mental status grossly normal Affect: normal affect Objective Data Vital Signs Vital Signs: Vital Signs - 24 hr 04/23/24 12:18 04/23/24 16:36 04/23/24 18:51 Temperature 98.1 F Pulse Rate 96 95 103 H Respiratory Rate 16 13 19 Blood Pressure 134/71 133/58 L 129/69 Pulse Oximetry 97 97 97 Oxygen Delivery Room Air 04/23/24 20:27 04/23/24 21:17 04/23/24 22:00 Temperature 100.2 F H 100.5 F H Pulse Rate 101 H 102 H Respiratory Rate 18 18 Blood Pressure 122/62 127/57 L Pulse Oximetry 96 96 Oxygen Delivery 04/23/24 22:57 04/24/24 06:00 04/24/24 08:34 Temperature 99.9 F H Pulse Rate 102 H 111 H Respiratory Rate 18 20 Blood Pressure 137/41 L Pulse Oximetry 96 93 91 Oxygen Delivery Room Air Room Air Intake/Output Intake/Output: Intake & Output 04/21/24 04/22/24 04/23/24 04/24/24 23:59 23:59 23:59 23:59 Intake Total 50 340 Output Total 20 Balance 30 340 Meds/Results Medications: Active Medications Generic Name Dose Route Start Last Admin Trade Name Freq PRN Reason Stop Dose Admin Acetaminophen 650 mg 04/23/24 17:46 04/23/24 21:17 Acetaminophen 325 Mg Tablet PO 650 mg Q6H PRN Administration Mild Pain (1-3) or Fever Amlodipine Besylate 5 mg 04/24/24 09:00 04/24/24 08:59 Amlodipine Besylate 5 Mg Tablet PO 5 mg DAILY CHIO Administration Aspirin 81 mg 04/24/24 09:00 04/24/24 08:59 Aspirin 81 Mg Chewable Tablet PO 81 mg DAILY CHIO Administration Atorvastatin Calcium 40 mg 04/24/24 09:00 04/24/24 09:06 Atorvastatin 40 Mg Tablet PO 40 mg DAILY CHIO Administration Citalopram Hydrobromide 20 mg 04/24/24 09:00 04/24/24 09:00 Citalopram Hydrobromide 20 Mg Tablet PO 20 mg DAILY CHIO Administration Dextrose 12.5 gm 04/23/24 17:47 Dextrose 50% 25 Gm/50 Ml Syringe IV PUSH PRN PRN Hypoglycemia Protocol Ezetimibe 10 mg 04/24/24 09:00 04/24/24 09:00 Ezetimibe 10 Mg Tablet PO 10 mg DAILY CHIO Administration Gabapentin 800 mg 04/23/24 22:30 04/24/24 08:59 Gabapentin 400 Mg Capsule PO 800 mg BID CHIO Administration Glucagon 1 mg 04/23/24 17:47 Glucagon For Inj 1 Mg Vial IM PRN PRN Hypoglycemia Protocol Glucose 15 gm 04/23/24 17:47 Glucose Oral Gel 15 Gm Of Glucse In 37.5 Gm Tube PO PRN PRN Hypoglycemia Protocol Hydralazine HCl 75 mg 04/23/24 22:30 04/24/24 08:59 Hydralazine Hcl 25 Mg Tablet PO 75 mg BID CHIO Administration Ceftriaxone Sodium 1 gm in 50 mls @ 100 mls/hr 04/24/24 17:00 Rocephin 1 Gm/Ns 50 Ml IVPB Q24H CHIO Dextrose 1,000 mls @ 100 mls/hr 04/23/24 17:47 Dextrose 5% 1,000 Ml IVPB PRN PRN Hypoglycemia Protocol Insulin Aspart 3 - 6 units 04/23/24 17:00 04/24/24 08:19 Insulin Aspart (*Bkc) 100 Units/Ml SUB-Q Not Given TIDWM CHIO Protocol Insulin Glargine 30 units 04/23/24 22:30 04/24/24 00:02 Insulin Glargine (*Bkc) 100 Units/Ml SUB-Q 30 units QPM CHIO Administration Lidocaine 1 patch 04/23/24 18:00 04/24/24 08:58 Lidocaine 5% Patch TRANSDERM 1 patch DAILY CHIO Administration Ondansetron HCl 4 mg 04/23/24 16:18 Ondansetron Inj 4 Mg/2 Ml Vial IV PUSH Q4H PRN Nausea Pantoprazole Sodium 40 mg 04/23/24 22:30 04/24/24 08:59 Pantoprazole 40 Mg Tablet PO 40 mg BID CHIO Administration Potassium Chloride 40 meq 04/24/24 12:07 Potassium Chloride 20 Meq Er Tablet PO 04/24/24 12:08 ONCE ONE Sitagliptin Phosphate 100 mg 04/24/24 09:00 04/24/24 09:00 Sitagliptin Phosphate 100 Mg Tablet PO 100 mg DAILY CHIO Administration Radiology Results: ITS Impressions Chest X-Ray 04/23/24 14:08 IMPRESSION: 1. No acute cardiopulmonary disease. Labs Labs: Laboratory Results - last 24 hr 04/23/24 04/23/24 04/23/24 14:07 14:33 21:09 WBC 11.6 H RBC 4.76 Hgb 12.8 Hct 38.8 MCV 81.5 MCH 26.9 MCHC 33.0 RDW 14.9 H Plt Count 238 MPV 9.6 Immature Gran % (Auto) 0.5 Neut % (Auto) 81.6 H Lymph % (Auto) 9.1 L [place] % (Auto) 8.2 Eos % (Auto) 0.3 Baso % (Auto) 0.3 Lymph # (Auto) 1.05 [place] # (Auto) 1.0 H Eos # (Auto) 0.0 Baso # (Auto) 0.0 Abs Immat Gran (auto) 0.06 H Absolute Neuts (auto) 9.5 H Absolute Nucleated RBC 0.000 Nucleated RBC % 0.0 PT 13.6 INR 1.0 APTT 27.1 Sodium 134 L Potassium 3.5 Chloride 100 Carbon Dioxide 27 Anion Gap 7 BUN 19 H Creatinine 1.40 H Estim Creat Clear Calc Not Reportable Estimated GFR 37 L Glucose 116 H POC Capillary Glucose 112 H Hemoglobin A1c Calcium 8.6 Total Bilirubin 0.6 AST 28 ALT 15 Alkaline Phosphatase 93 Total Protein 7.0 Albumin 3.9 Urine Color Dark yellow Urine Appearance Turbid H Urine pH 6.0 Ur Specific [place] 1.029 Urine Protein 2+ H Urine Glucose (UA) Negative Urine Ketones Trace H Ur Blood (Man) Negative Urine Nitrate Positive H Urine Bilirubin 1+ H Urine Urobilinogen 1.0 Add Ur Microanalysis Reviewed Leukocyte Esterase Rfl 2+ H Urine RBC 6-10 H Urine WBC >100 H Ur Squamous Epith Cells Few Urine Bacteria 4+ H Urine Casts >20 Hyaline Casts Present Urine Mucus Present C. difficile (PCR) Influenza A (RT-PCR) Negative Influenza B (RT-PCR) Negative RSV (RT-PCR) Negative SARS-CoV-2 RNA (RT-PCR) Negative 04/24/24 04/24/24 04/24/24 04:33 06:15 08:02 WBC 10.4 H RBC 4.33 Hgb 11.7 L Hct 36.0 L MCV 83.1 MCH 27.0 MCHC 32.5 RDW 14.8 H Plt Count 224 MPV 10.5 H Immature Gran % (Auto) 0.4 Neut % (Auto) 85.1 H Lymph % (Auto) 5.6 L [place] % (Auto) 8.4 Eos % (Auto) 0.1 Baso % (Auto) 0.4 Lymph # (Auto) 0.58 L [place] # (Auto) 0.9 H Eos # (Auto) 0.0 Baso # (Auto) 0.0 Abs Immat Gran (auto) 0.04 H Absolute Neuts (auto) 8.9 H Absolute Nucleated RBC 0.000 Nucleated RBC % 0.0 PT INR APTT Sodium 132 L Potassium 3.2 L Chloride 103 Carbon Dioxide 23 Anion Gap 6 BUN 17 Creatinine 1.10 H Estim Creat Clear Calc Not Reportable Estimated GFR 48 L Glucose 104 POC Capillary Glucose 107 H Hemoglobin A1c 7.2 H Calcium 8.1 L Total Bilirubin AST ALT Alkaline Phosphatase Total Protein Albumin Urine Color Urine Appearance Urine pH Ur Specific [place] Urine Protein Urine Glucose (UA) Urine Ketones Ur Blood (Man) Urine Nitrate Urine Bilirubin Urine Urobilinogen Add Ur Microanalysis Leukocyte Esterase Rfl Urine RBC Urine WBC Ur Squamous Epith Cells Urine Bacteria Urine Casts Hyaline Casts Urine Mucus C. difficile (PCR) Negative Influenza A (RT-PCR) Influenza B (RT-PCR) RSV (RT-PCR) SARS-CoV-2 RNA (RT-PCR) Quality VTE Prophylaxis VTE prophylaxis: mechanical ordered
[2024-04-24 12:23] LABS: Glucose Point of Care 126 mg/dl (65-105)
[2024-04-24] MEDS: POTASSIUM CHLORIDE 20 MEQ ER TABLET 40 MEQ PO (12:35)
[2024-04-24] MEDS: ACETAMINOPHEN 325 MG TABLET 650 MG PO (15:10)
[2024-04-24] MEDS: SACCHAROMYCES BOULARDII 250 MG CAPSULE PO (17:02)
[2024-04-24 17:18] LABS: Glucose Point of Care 121 mg/dl (65-105)
[2024-04-24 20:21] LABS: Glucose Point of Care 152 mg/dl (65-105)
[2024-04-25] MEDS: FLUTICASONE PROPIONATE 0.05% NA SPR 16 GM BTL (*BKC) 1 SPRAY NASAL ×2 (02:44→12:39)
[2024-04-25] MEDS: ACETAMINOPHEN 325 MG TABLET 650 MG PO ×2 (05:43→20:55)
[2024-04-25 05:52] VITALS: BP 142/63; PULSE 91; RESP 18; TEMP 36.1; O2SAT 99
[2024-04-25 07:54] LABS: Glucose Point of Care 96 mg/dl (65-105)
[2024-04-25 07:55] LABS: Basophils Absolute Auto 0.1 K/mm3 (0.0-0.1); Basophils Percent Auto 0.8 % (0.2-1.2); Eosinophils Absolute Auto 0.1 K/mm3 (0-0.3); Eosinophils Percent Auto 1.5 % (0-4.4); Hematocrit 33.8 % (37.0-47.0); Hemoglobin 10.9 g/dL (12.0-15.0); Immature Granulocyte Absolute 0.03 K/mm3 (0.00-0.031); Immature Granulocyte Percent A 0.4 % (0-0.5); Lymphocytes Absolute Auto 0.96 K/mm3 (0.9-3.2); Lymphocytes Percent Auto 12.2 % (18.3-44.2); Mean Corpuscular HGB Conc 32.2 g/dl (32-36); Mean Corpuscular Hemoglobin 26.5 pg (26-34); Mean Platelet Volume 10.4 fl (7.4-10.4); Monocytes Absolute Auto 0.9 K/mm3 (0.1-0.6); Monocytes Percent Auto 11.7 % (2.6-8.5); Neutrophils Absolute Auto 5.8 K/mm3 (1.3-6.7); Neutrophils Percent Auto 73.4 % (45.5-73.1); Platelet Count Result 216 k/mm3 (150-375); Red Blood Count 4.12 M/mm3 (4.2-5.4); Red Cell Distribution Width 14.6 % (11.5-14.5); White Blood Count 7.9 K/mm3 (4.5-10.0)
[2024-04-25 08:26] LABS: Alanine Aminotransferase 15 U/L (6-35); Albumin Level 3.1 g/dL (3.5-5.1); Alkaline Phosphatase 82 U/L (38-126); Anion Gap 5 mmol/L (4-12); Aspartate Amino Transferase 30 U/L (14-36); Bilirubin,Total 0.5 mg/dL (0.2-1.3); Blood Urea Nitrogen 22 mg/dL (7-17); Calcium 8.3 mg/dL (8.4-10.2); Carbon Dioxide 24 mmol/L (22-30); Chloride 105 mmol/L (98-107); Estimated Glomerular Filt Rate 44; Glucose 99 mg/dL (65-110); Potassium 3.4 mmol/L (3.4-5.0); Sodium 134 mmol/L (137-145)
[2024-04-25] MEDS: hydrALAZINE HCL 25 MG TABLET 75 MG PO ×2 (09:28→17:16)
[2024-04-25] MEDS: amLODIPine BESYLATE 5 MG TABLET PO (09:28)
[2024-04-25] MEDS: GABAPENTIN 400 MG CAPSULE 800 MG PO ×2 (09:28→17:15)
[2024-04-25] MEDS: ASPIRIN 81 MG CHEWABLE TABLET PO (09:28)
[2024-04-25] MEDS: SACCHAROMYCES BOULARDII 250 MG CAPSULE PO ×2 (09:28→17:16)
[2024-04-25] MEDS: SITagliptin PHOSPHATE 100 MG TABLET PO (09:28)
[2024-04-25] MEDS: CITALOPRAM HYDROBROMIDE 20 MG TABLET PO (09:29)
[2024-04-25] MEDS: PANTOPRAZOLE 40 MG TABLET PO ×2 (09:29→17:16)
[2024-04-25] MEDS: ATORVASTATIN 40 MG TABLET PO (09:29)
[2024-04-25] MEDS: EZETIMIBE 10 MG TABLET PO (09:29)
[2024-04-25] MEDS: POTASSIUM CHLORIDE 20 MEQ ER TABLET 40 MEQ PO (09:33)
[2024-04-25] MEDS: LIDOCAINE 5% PATCH 1 PATCH TRANSDERM (09:34)
[2024-04-25 11:45] LABS: Glucose Point of Care 103 mg/dl (65-105)
--- NOTE | 2024-04-25 12:15 | P.PNIM_ITS ---
Progress Note: A&P Assessment and Plan (1) Acute UTI: Code(s): N39.0 - Urinary tract infection, site not specified Status: Acute Assessment and Plan: - did not meet SIRS criteria - UA: Turbid, 2+ protein, trace ketones, positive nitrates, 1+ bilirubin, 2+ leuks, 6-10 RBC, greater than 100 WBC, few epithelial cells, 4+ bacteria - UC growing proteus mirabilis. - previous micro reviewed, Pseudomonas in 2019. - started on Ceftriaxone 1 gm IVPB daily on 04/23, switched to Cefdinir 300 mg PO BID today. (2) Generalized weakness: Code(s): R53.1 - Weakness Status: Acute Assessment and Plan: - viral PCR negative - ongoing diarrhea w/o abd pain, will add C diff and stool culture - IV fluids: 1L bolus and 100 mL/hr x1L - PT/OT ordered (3) Rib pain: Code(s): R07.81 - Pleurodynia Status: Acute Assessment and Plan: - CXR, previous (04/21/24): Subsegmental right basilar opacities, may represent atelectasis, infection, or pulmonary contusion in the setting of trauma. Possible nondisplaced right anterolateral seventh and lateral eighth rib fractures. 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 * Monitor stools. (6) Diarrhea: Code(s): R19.7 - Diarrhea, unspecified Status: Acute Assessment and Plan: * Florastor 250 mg PO BID. * Encourage oral intake. * Monitor stools. * Stool cultures pending. * C. diff negative. (7) Hypokalemia: Code(s): E87.6 - Hypokalemia Status: Acute Assessment and Plan: * Potassium 3.2 yesterday and 3.4 today * Potassium Chloride 40 meq PO x1 given. * Monitor labs. (8) Hypertension: Qualifiers: Hypertension type: primary hypertension Qualified Code(s): I10 - Essential (primary) hypertension Code(s): I10 - Essential (primary) hypertension Status: Chronic Assessment and Plan: - chronic, currently 145/70. - continue home medications: Amlodipine 5 mg daily, hydralazine 75 mg b.i.d. - monitor Plan Diet: Diabetic GI Prophylaxis: Not currently indicated DVT Prophylaxis: SCDs Lines: Peripheral Code Status: Full code Subjective Date/time seen: 04/25/24 12:15 Interval history: Patient reports right sided rib pain that is an 8 , occasional, and aching. Patient reports shortness of breath on exertion. Patient denies chest pain, palpitations, headache, dizziness, nausea, or vomiting. Review of Systems Review of Systems: All systems reviewed & are unremarkable except as noted in HPI and below Exam Const: General: no acute distress and uncomfortable Eyes: Sclera: sclerae normal Neck: Neck: supple Resp: Effort & Inspection: normal respiratory effort Auscultation: clear to auscultation bilaterally Cardio: Rate: regular rate Rhythm: regular rhythm GI: GI Palp: Yes Soft to palpation Auscultation: normal bowel sounds Skin: General skin exam: no rashes or lesions noted Other: dry Extrem: General: no pedal edema Psych: Mental Status: mental status grossly normal Affect: normal affect Objective Data Vital Signs Vital Signs: Vital Signs - 24 hr 04/24/24 14:34 04/24/24 15:10 04/24/24 16:10 Temperature 100.2 F H 98.2 F Pulse Rate Respiratory Rate Blood Pressure Pulse Oximetry Oxygen Delivery Room Air 04/24/24 14:00 04/24/24 20:00 04/24/24 21:10 Temperature 98.8 F 96.9 F L Pulse Rate 100 100 86 Respiratory Rate 16 16 14 Blood Pressure 120/40 L 105/50 L Pulse Oximetry 93 93 96 Oxygen Delivery Room Air 04/24/24 20:00 04/25/24 05:52 04/25/24 09:05 Temperature 96.9 F L Pulse Rate 91 Respiratory Rate 18 Blood Pressure 142/63 H Pulse Oximetry 91 99 Oxygen Delivery Room Air Room Air Intake/Output Intake/Output: Intake & Output 04/22/24 04/23/24 04/24/24 04/25/24 23:59 23:59 23:59 23:59 Intake Total 1050 2870 515 Output Total 20 Balance 1030 2870 515 Meds/Results Medications: Active Medications Generic Name Dose Route Start Last Admin Trade Name Freq PRN Reason Stop Dose Admin Acetaminophen 650 mg 04/23/24 17:46 04/25/24 05:43 Acetaminophen 325 Mg Tablet PO 650 mg Q6H PRN Administration Mild Pain (1-3) or Fever Amlodipine Besylate 5 mg 04/24/24 09:00 04/25/24 09:28 Amlodipine Besylate 5 Mg Tablet PO 5 mg DAILY CHIO Administration Aspirin 81 mg 04/24/24 09:00 04/25/24 09:28 Aspirin 81 Mg Chewable Tablet PO 81 mg DAILY CHIO Administration Atorvastatin Calcium 40 mg 04/24/24 09:00 04/25/24 09:29 Atorvastatin 40 Mg Tablet PO 40 mg DAILY CHIO Administration Citalopram Hydrobromide 20 mg 04/24/24 09:00 04/25/24 09:29 Citalopram Hydrobromide 20 Mg Tablet PO 20 mg DAILY CHIO Administration Dextrose 12.5 gm 04/23/24 17:47 Dextrose 50% 25 Gm/50 Ml Syringe IV PUSH PRN PRN Hypoglycemia Protocol Ezetimibe 10 mg 04/24/24 09:00 04/25/24 09:29 Ezetimibe 10 Mg Tablet PO 10 mg DAILY CHIO Administration Fluticasone Propionate 1 spray 04/24/24 18:17 04/25/24 02:44 Fluticasone Propionate 0.05% Na Spr 16 Gm Btl (*Bkc) NASAL 1 spray Q12HR PRN Administration Congestion Gabapentin 800 mg 04/23/24 22:30 04/25/24 09:28 Gabapentin 400 Mg Capsule PO 800 mg BID CHIO Administration Glucagon 1 mg 04/23/24 17:47 Glucagon For Inj 1 Mg Vial IM PRN PRN Hypoglycemia Protocol Glucose 15 gm 04/23/24 17:47 Glucose Oral Gel 15 Gm Of Glucse In 37.5 Gm Tube PO PRN PRN Hypoglycemia Protocol Hydralazine HCl 75 mg 04/23/24 22:30 04/25/24 09:28 Hydralazine Hcl 25 Mg Tablet PO 75 mg BID CHIO Administration Ceftriaxone Sodium 1 gm in 50 mls @ 100 mls/hr 04/24/24 17:00 04/24/24 17:28 Rocephin 1 Gm/Ns 50 Ml IVPB Infused Q24H CHIO Infusion Dextrose 1,000 mls @ 100 mls/hr 04/23/24 17:47 Dextrose 5% 1,000 Ml IVPB PRN PRN Hypoglycemia Protocol Insulin Aspart 3 - 6 units 04/23/24 17:00 04/25/24 12:05 Insulin Aspart (*Bkc) 100 Units/Ml SUB-Q Not Given TIDWM CHIO Protocol Insulin Glargine 30 units 04/23/24 22:30 04/24/24 17:49 Insulin Glargine (*Bkc) 100 Units/Ml SUB-Q 30 units QPM CHIO Administration Lidocaine 1 patch 04/23/24 18:00 04/25/24 09:34 Lidocaine 5% Patch TRANSDERM 1 patch DAILY CHIO Administration Ondansetron HCl 4 mg 04/23/24 16:18 Ondansetron Inj 4 Mg/2 Ml Vial IV PUSH Q4H PRN Nausea Pantoprazole Sodium 40 mg 04/23/24 22:30 04/25/24 09:29 Pantoprazole 40 Mg Tablet PO 40 mg BID CHIO Administration Saccharomyces Boulardii 250 mg 04/24/24 17:00 04/25/24 09:28 Saccharomyces Boulardii 250 Mg Capsule PO 250 mg BID CHIO Administration Sitagliptin Phosphate 100 mg 04/24/24 09:00 04/25/24 09:28 Sitagliptin Phosphate 100 Mg Tablet PO 100 mg DAILY CHIO Administration Radiology Results: ITS Impressions Chest X-Ray 04/23/24 14:08 IMPRESSION: 1. No acute cardiopulmonary disease. Labs Labs: Laboratory Results - last 24 hr 04/24/24 04/24/24 04/24/24 11:53 17:02 20:05 WBC RBC Hgb Hct MCV MCH MCHC RDW Plt Count MPV Immature Gran % (Auto) Neut % (Auto) Lymph % (Auto) [place] % (Auto) Eos % (Auto) Baso % (Auto) Lymph # (Auto) [place] # (Auto) Eos # (Auto) Baso # (Auto) Abs Immat Gran (auto) Absolute Neuts (auto) Absolute Nucleated RBC Nucleated RBC % Sodium Potassium Chloride Carbon Dioxide Anion Gap BUN Creatinine Estim Creat Clear Calc Estimated GFR Glucose POC Capillary Glucose 126 H 121 H 152 H Calcium Total Bilirubin AST ALT Alkaline Phosphatase Total Protein Albumin 04/25/24 04/25/24 04/25/24 07:04 07:50 11:37 WBC 7.9 RBC 4.12 L Hgb 10.9 L Hct 33.8 L MCV 82.0 MCH 26.5 MCHC 32.2 RDW 14.6 H Plt Count 216 MPV 10.4 Immature Gran % (Auto) 0.4 Neut % (Auto) 73.4 H Lymph % (Auto) 12.2 L [place] % (Auto) 11.7 H Eos % (Auto) 1.5 Baso % (Auto) 0.8 Lymph # (Auto) 0.96 [place] # (Auto) 0.9 H Eos # (Auto) 0.1 Baso # (Auto) 0.1 Abs Immat Gran (auto) 0.03 Absolute Neuts (auto) 5.8 Absolute Nucleated RBC 0.000 Nucleated RBC % 0.0 Sodium 134 L Potassium 3.4 Chloride 105 Carbon Dioxide 24 Anion Gap 5 BUN 22 H Creatinine 1.20 H Estim Creat Clear Calc Not Reportable Estimated GFR 44 L Glucose 99 POC Capillary Glucose 96 103 Calcium 8.3 L Total Bilirubin 0.5 AST 30 ALT 15 Alkaline Phosphatase 82 Total Protein 6.0 L Albumin 3.1 L Quality VTE Prophylaxis VTE prophylaxis: mechanical ordered
[2024-04-25 14:00] VITALS: BP 145/70; PULSE 90; RESP 16; TEMP 36.1; O2SAT 96
[2024-04-25 17:02] LABS: Glucose Point of Care 96 mg/dl (65-105)
[2024-04-25] MEDS: INSULIN GLARGINE (*BKC) 100 UNITS/ML 30 UNITS SUB-Q (17:16)
[2024-04-25] MEDS: AZITHROMYCIN 250 MG TABLET 500 MG PO (17:20)
[2024-04-25] MEDS: CEFDINIR 300 MG CAPSULE PO (17:21)
[2024-04-25 20:11] VITALS: BP 117/51; PULSE 79; RESP 14; TEMP 36.4; O2SAT 98
[2024-04-25 21:04] LABS: Glucose Point of Care 201 mg/dl (65-105)
[2024-04-26 05:22] VITALS: BP 153/73; PULSE 77; RESP 16; TEMP 36.8; O2SAT 99
[2024-04-26 06:38] LABS: Basophils Absolute Auto 0.1 K/mm3 (0.0-0.1); Basophils Percent Auto 0.7 % (0.2-1.2); Eosinophils Absolute Auto 0.2 K/mm3 (0-0.3); Eosinophils Percent Auto 2.7 % (0-4.4); Hematocrit 34.9 % (37.0-47.0); Hemoglobin 11.5 g/dL (12.0-15.0); Immature Granulocyte Absolute 0.05 K/mm3 (0.00-0.031); Immature Granulocyte Percent A 0.7 % (0-0.5); Lymphocytes Absolute Auto 1.57 K/mm3 (0.9-3.2); Lymphocytes Percent Auto 22.2 % (18.3-44.2); Mean Corpuscular Hemoglobin 26.9 pg (26-34); Mean Corpuscular Volume 81.5 fl (80-100); Monocytes Absolute Auto 0.8 K/mm3 (0.1-0.6); Monocytes Percent Auto 11.3 % (2.6-8.5); Neutrophils Absolute Auto 4.4 K/mm3 (1.3-6.7); Neutrophils Percent Auto 62.4 % (45.5-73.1); Platelet Count Result 223 k/mm3 (150-375); Red Blood Count 4.28 M/mm3 (4.2-5.4); Red Cell Distribution Width 14.4 % (11.5-14.5); White Blood Count 7.1 K/mm3 (4.5-10.0)
[2024-04-26 06:54] LABS: Alanine Aminotransferase 19 U/L (6-35); Albumin Level 3.4 g/dL (3.5-5.1); Alkaline Phosphatase 77 U/L (38-126); Anion Gap 6 mmol/L (4-12); Aspartate Amino Transferase 32 U/L (14-36); Bilirubin,Total 0.4 mg/dL (0.2-1.3); Blood Urea Nitrogen 18 mg/dL (7-17); Calcium 8.5 mg/dL (8.4-10.2); Carbon Dioxide 25 mmol/L (22-30); Chloride 106 mmol/L (98-107); Estimated Glomerular Filt Rate > 60; Glucose 87 mg/dL (65-110); Potassium 3.3 mmol/L (3.4-5.0); Sodium 137 mmol/L (137-145)
[2024-04-26 08:00] VITALS: BP 143/71; PULSE 71; RESP 20; TEMP 36.6; O2SAT 99
[2024-04-26 08:31] LABS: Glucose Point of Care 96 mg/dl (65-105)
[2024-04-26] MEDS: POTASSIUM CHLORIDE 20 MEQ ER TABLET 40 MEQ PO (10:39)
[2024-04-26] MEDS: EZETIMIBE 10 MG TABLET PO (10:40)
[2024-04-26] MEDS: GABAPENTIN 400 MG CAPSULE 800 MG PO ×2 (10:40→17:16)
[2024-04-26] MEDS: ATORVASTATIN 40 MG TABLET PO (10:40)
[2024-04-26] MEDS: SACCHAROMYCES BOULARDII 250 MG CAPSULE PO ×2 (10:40→17:16)
[2024-04-26] MEDS: ASPIRIN 81 MG CHEWABLE TABLET PO (10:40)
[2024-04-26] MEDS: LIDOCAINE 5% PATCH 1 PATCH TRANSDERM (10:40)
[2024-04-26] MEDS: PANTOPRAZOLE 40 MG TABLET PO ×2 (10:41→17:15)
[2024-04-26] MEDS: CITALOPRAM HYDROBROMIDE 20 MG TABLET PO (10:41)
[2024-04-26] MEDS: SITagliptin PHOSPHATE 100 MG TABLET PO (10:41)
[2024-04-26] MEDS: hydrALAZINE HCL 25 MG TABLET 75 MG PO ×2 (10:41→17:16)
[2024-04-26] MEDS: CEFDINIR 300 MG CAPSULE PO ×2 (10:41→17:20)
[2024-04-26] MEDS: amLODIPine BESYLATE 5 MG TABLET PO (10:41)
[2024-04-26] MEDS: FLUTICASONE PROPIONATE 0.05% NA SPR 16 GM BTL (*BKC) 1 SPRAY NASAL (10:42)
--- NOTE | 2024-04-26 10:50 | P.PNIM_ITS ---
Progress Note: A&P Assessment and Plan (1) Acute UTI: Code(s): N39.0 - Urinary tract infection, site not specified Status: Acute Assessment and Plan: - did not meet SIRS criteria - UA: Turbid, 2+ protein, trace ketones, positive nitrates, 1+ bilirubin, 2+ leuks, 6-10 RBC, greater than 100 WBC, few epithelial cells, 4+ bacteria - UC growing proteus mirabilis. - previous micro reviewed, Pseudomonas in 2019. - started on Ceftriaxone 1 gm IVPB daily on 04/23, switched to Cefdinir 300 mg PO BID on 04/25. (2) Generalized weakness: Code(s): R53.1 - Weakness Status: Acute Assessment and Plan: - viral PCR negative - ongoing diarrhea w/o abd pain, will add C diff and stool culture - IV fluids: 1L bolus and 100 mL/hr x1L - PT/OT ordered (3) Rib pain: Code(s): R07.81 - Pleurodynia Status: Acute Assessment and Plan: - CXR, previous (04/21/24): Subsegmental right basilar opacities, may represent atelectasis, infection, or pulmonary contusion in the setting of trauma. Possible nondisplaced right anterolateral seventh and lateral eighth rib fractures. 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 * Monitor stools. * Encourage oral intake. (6) Diarrhea: Code(s): R19.7 - Diarrhea, unspecified Status: Acute Assessment and Plan: * Florastor 250 mg PO BID. * Encourage oral intake. * Monitor stools. * Stool cultures pending. * C. diff negative. (7) Hypokalemia: Code(s): E87.6 - Hypokalemia Status: Acute Assessment and Plan: * Potassium 3.3 today * Potassium Chloride 40 meq PO x1 given. * Monitor labs. (8) Hypertension: Qualifiers: Hypertension type: primary hypertension Qualified Code(s): I10 - Essential (primary) hypertension Code(s): I10 - Essential (primary) hypertension Status: Chronic Assessment and Plan: - chronic, currently 145/59. - continue home medications: Amlodipine 5 mg daily, hydralazine 75 mg b.i.d. - monitor Plan Diet: Diabetic GI Prophylaxis: Not currently indicated DVT Prophylaxis: SCDs Lines: Peripheral Code Status: Full code Subjective Date/time seen: 04/26/24 10:50 Interval history: Patient reports that her diarrhea has returned. Patient denies abdominal pain, palpitations, nausea, or vomiting. Reports right side rib pain is a 6 , occasional, and sore. Review of Systems Review of Systems: All systems reviewed & are unremarkable except as noted in HPI and below Exam Const: General: comfortable and no acute distress Eyes: Sclera: sclerae normal Resp: Effort & Inspection: normal respiratory effort Auscultation: clear to auscultation bilaterally Cardio: Rate: regular rate Rhythm: regular rhythm GI: GI Palp: Yes Soft to palpation Auscultation: normal bowel sounds Skin: Other: dry Neuro: Speech: normal speech Extrem: General: no pedal edema Psych: Mental Status: mental status grossly normal Affect: normal affect Objective Data Vital Signs Vital Signs: Vital Signs - 24 hr 04/25/24 14:00 04/25/24 20:11 04/26/24 05:22 Temperature 97.0 F L 97.6 F 98.2 F Pulse Rate 90 79 77 Respiratory Rate 16 14 16 Blood Pressure 145/70 H 117/51 L 153/73 H Pulse Oximetry 96 98 99 04/26/24 08:00 Temperature 97.9 F Pulse Rate 71 Respiratory Rate 20 Blood Pressure 143/71 H Pulse Oximetry 99 Intake/Output Intake/Output: Intake & Output 04/23/24 04/24/24 04/25/24 04/26/24 23:59 23:59 23:59 23:59 Intake Total 1050 2870 2095 910 Output Total 20 Balance 1030 2870 2095 910 Meds/Results Medications: Active Medications Generic Name Dose Route Start Last Admin Trade Name Freq PRN Reason Stop Dose Admin Acetaminophen 650 mg 04/23/24 17:46 04/25/24 20:55 Acetaminophen 325 Mg Tablet PO 650 mg Q6H PRN Administration Mild Pain (1-3) or Fever Amlodipine Besylate 5 mg 04/24/24 09:00 04/26/24 10:41 Amlodipine Besylate 5 Mg Tablet PO 5 mg DAILY CHIO Administration Aspirin 81 mg 04/24/24 09:00 04/26/24 10:40 Aspirin 81 Mg Chewable Tablet PO 81 mg DAILY CHIO Administration Atorvastatin Calcium 40 mg 04/24/24 09:00 04/26/24 10:40 Atorvastatin 40 Mg Tablet PO 40 mg DAILY CHIO Administration Azithromycin 500 mg 04/25/24 16:30 04/25/24 17:20 Azithromycin 250 Mg Tablet PO 04/27/24 16:01 500 mg DAILY@1600 CHIO Administration Cefdinir 300 mg 04/25/24 17:00 04/26/24 10:41 Cefdinir 300 Mg Capsule PO 04/30/24 09:01 300 mg BID CHIO Administration Citalopram Hydrobromide 20 mg 04/24/24 09:00 04/26/24 10:41 Citalopram Hydrobromide 20 Mg Tablet PO 20 mg DAILY CHIO Administration Dextrose 12.5 gm 04/23/24 17:47 Dextrose 50% 25 Gm/50 Ml Syringe IV PUSH PRN PRN Hypoglycemia Protocol Ezetimibe 10 mg 04/24/24 09:00 04/26/24 10:40 Ezetimibe 10 Mg Tablet PO 10 mg DAILY CHIO Administration Fluticasone Propionate 1 spray 04/24/24 18:17 04/26/24 10:42 Fluticasone Propionate 0.05% Na Spr 16 Gm Btl (*Bkc) NASAL 1 spray Q12HR PRN Administration Congestion Gabapentin 800 mg 04/23/24 22:30 04/26/24 10:40 Gabapentin 400 Mg Capsule PO 800 mg BID CHIO Administration Glucagon 1 mg 04/23/24 17:47 Glucagon For Inj 1 Mg Vial IM PRN PRN Hypoglycemia Protocol Glucose 15 gm 04/23/24 17:47 Glucose Oral Gel 15 Gm Of Glucse In 37.5 Gm Tube PO PRN PRN Hypoglycemia Protocol Hydralazine HCl 75 mg 04/23/24 22:30 04/26/24 10:41 Hydralazine Hcl 25 Mg Tablet PO 75 mg BID CHIO Administration Dextrose 1,000 mls @ 100 mls/hr 04/23/24 17:47 Dextrose 5% 1,000 Ml IVPB PRN PRN Hypoglycemia Protocol Insulin Aspart 3 - 6 units 04/23/24 17:00 04/25/24 19:30 Insulin Aspart (*Bkc) 100 Units/Ml SUB-Q Not Given TIDWM CHIO Protocol Insulin Glargine 30 units 04/23/24 22:30 04/25/24 17:16 Insulin Glargine (*Bkc) 100 Units/Ml SUB-Q 30 units QPM CHIO Administration Lidocaine 1 patch 04/23/24 18:00 04/26/24 10:40 Lidocaine 5% Patch TRANSDERM 1 patch DAILY CHIO Administration Ondansetron HCl 4 mg 04/23/24 16:18 Ondansetron Inj 4 Mg/2 Ml Vial IV PUSH Q4H PRN Nausea Pantoprazole Sodium 40 mg 04/23/24 22:30 04/26/24 10:41 Pantoprazole 40 Mg Tablet PO 40 mg BID CHIO Administration Saccharomyces Boulardii 250 mg 04/24/24 17:00 04/26/24 10:40 Saccharomyces Boulardii 250 Mg Capsule PO 250 mg BID CHIO Administration Sitagliptin Phosphate 100 mg 04/24/24 09:00 04/26/24 10:41 Sitagliptin Phosphate 100 Mg Tablet PO 100 mg DAILY CHIO Administration Radiology Results: ITS Impressions Chest X-Ray 04/23/24 14:08 IMPRESSION: 1. No acute cardiopulmonary disease. Labs Labs: Laboratory Results - last 24 hr 04/24/24 04/25/24 04/25/24 06:15 11:37 16:53 WBC RBC Hgb Hct MCV MCH MCHC RDW Plt Count MPV Immature Gran % (Auto) Neut % (Auto) Lymph % (Auto) [place] % (Auto) Eos % (Auto) Baso % (Auto) Lymph # (Auto) [place] # (Auto) Eos # (Auto) Baso # (Auto) Abs Immat Gran (auto) Absolute Neuts (auto) Absolute Nucleated RBC Nucleated RBC % Sodium 132 L Potassium 3.2 L Chloride 103 Carbon Dioxide 23 Anion Gap 6 BUN 17 Creatinine 1.10 H Estim Creat Clear Calc Estimated GFR 48 L Glucose 104 POC Capillary Glucose 103 96 Calcium 8.1 L Total Bilirubin AST ALT Alkaline Phosphatase Total Protein Albumin 04/25/24 04/26/24 04/26/24 20:13 06:16 07:56 WBC 7.1 RBC 4.28 Hgb 11.5 L Hct 34.9 L MCV 81.5 MCH 26.9 MCHC 33.0 RDW 14.4 Plt Count 223 MPV 10.0 Immature Gran % (Auto) 0.7 H Neut % (Auto) 62.4 Lymph % (Auto) 22.2 [place] % (Auto) 11.3 H Eos % (Auto) 2.7 Baso % (Auto) 0.7 Lymph # (Auto) 1.57 [place] # (Auto) 0.8 H Eos # (Auto) 0.2 Baso # (Auto) 0.1 Abs Immat Gran (auto) 0.05 H Absolute Neuts (auto) 4.4 Absolute Nucleated RBC 0.000 Nucleated RBC % 0.0 Sodium 137 Potassium 3.3 L Chloride 106 Carbon Dioxide 25 Anion Gap 6 BUN 18 H Creatinine 0.90 Estim Creat Clear Calc Not Reportable Estimated GFR > 60 Glucose 87 POC Capillary Glucose 201 H 96 Calcium 8.5 Total Bilirubin 0.4 AST 32 ALT 19 Alkaline Phosphatase 77 Total Protein 6.0 L Albumin 3.4 L Quality VTE Prophylaxis VTE prophylaxis: mechanical ordered
[2024-04-26 12:01] LABS: Glucose Point of Care 95 mg/dl (65-105)
[2024-04-26 14:00] VITALS: BP 145/59; PULSE 85; RESP 20; TEMP 36.3; O2SAT 98
[2024-04-26 16:29] LABS: Glucose Point of Care 169 mg/dl (65-105)
[2024-04-26] MEDS: AZITHROMYCIN 250 MG TABLET 500 MG PO (17:17)
[2024-04-26] MEDS: INSULIN GLARGINE (*BKC) 100 UNITS/ML 30 UNITS SUB-Q (17:19)
[2024-04-26 20:46] VITALS: BP 117/49; PULSE 82; RESP 16; TEMP 36.4; O2SAT 95
[2024-04-26 21:12] LABS: Glucose Point of Care 132 mg/dl (65-105)
[2024-04-27 05:20] VITALS: BP 144/73; PULSE 76; RESP 20; TEMP 37.3; O2SAT 97
[2024-04-27 07:10] LABS: Basophils Absolute Auto 0.1 K/mm3 (0.0-0.1); Basophils Percent Auto 0.8 % (0.2-1.2); Eosinophils Absolute Auto 0.2 K/mm3 (0-0.3); Eosinophils Percent Auto 2.9 % (0-4.4); Hematocrit 34.2 % (37.0-47.0); Hemoglobin 11.2 g/dL (12.0-15.0); Immature Granulocyte Absolute 0.11 K/mm3 (0.00-0.031); Immature Granulocyte Percent A 1.5 % (0-0.5); Lymphocytes Absolute Auto 2.25 K/mm3 (0.9-3.2); Mean Corpuscular HGB Conc 32.7 g/dl (32-36); Mean Corpuscular Hemoglobin 26.4 pg (26-34); Mean Corpuscular Volume 80.7 fl (80-100); Monocytes Absolute Auto 0.8 K/mm3 (0.1-0.6); Neutrophils Absolute Auto 4.1 K/mm3 (1.3-6.7); Neutrophils Percent Auto 54.8 % (45.5-73.1); Platelet Count Result 288 k/mm3 (150-375); Red Blood Count 4.24 M/mm3 (4.2-5.4); Red Cell Distribution Width 14.2 % (11.5-14.5); White Blood Count 7.5 K/mm3 (4.5-10.0)
[2024-04-27 07:22] LABS: Alanine Aminotransferase 22 U/L (6-35); Albumin Level 3.3 g/dL (3.5-5.1); Alkaline Phosphatase 76 U/L (38-126); Anion Gap 3 mmol/L (4-12); Aspartate Amino Transferase 35 U/L (14-36); Bilirubin,Total 0.3 mg/dL (0.2-1.3); Blood Urea Nitrogen 14 mg/dL (7-17); Calcium 8.5 mg/dL (8.4-10.2); Carbon Dioxide 28 mmol/L (22-30); Chloride 105 mmol/L (98-107); Estimated Glomerular Filt Rate > 60; Glucose 81 mg/dL (65-110); Potassium 3.4 mmol/L (3.4-5.0); Sodium 136 mmol/L (137-145)
[2024-04-27 07:56] LABS: Glucose Point of Care 79 mg/dl (65-105)
[2024-04-27] MEDS: LIDOCAINE 5% PATCH 1 PATCH TRANSDERM (09:03)
[2024-04-27] MEDS: POTASSIUM CHLORIDE 20 MEQ ER TABLET 40 MEQ PO (09:03)
[2024-04-27] MEDS: FLUTICASONE PROPIONATE 0.05% NA SPR 16 GM BTL (*BKC) 1 SPRAY NASAL (09:03)
[2024-04-27] MEDS: PANTOPRAZOLE 40 MG TABLET PO (09:03)
[2024-04-27] MEDS: CITALOPRAM HYDROBROMIDE 20 MG TABLET PO (09:04)
[2024-04-27] MEDS: hydrALAZINE HCL 25 MG TABLET 75 MG PO (09:04)
[2024-04-27] MEDS: GABAPENTIN 400 MG CAPSULE 800 MG PO (09:04)
[2024-04-27] MEDS: SACCHAROMYCES BOULARDII 250 MG CAPSULE PO (09:04)
[2024-04-27] MEDS: ATORVASTATIN 40 MG TABLET PO (09:04)
[2024-04-27] MEDS: EZETIMIBE 10 MG TABLET PO (09:04)
[2024-04-27] MEDS: SITagliptin PHOSPHATE 100 MG TABLET PO (09:04)
[2024-04-27] MEDS: ASPIRIN 81 MG CHEWABLE TABLET PO (09:04)
[2024-04-27] MEDS: amLODIPine BESYLATE 5 MG TABLET PO (09:04)
[2024-04-27] MEDS: CEFDINIR 300 MG CAPSULE PO (09:05)
[2024-04-27 11:33] LABS: Glucose Point of Care 162 mg/dl (65-105)
--- NOTE | 2024-04-27 12:16 | P.DS_ITS ---
DS: Admitting Diagnosis Discharge Date 04/27/24 Admitting Diagnosis Weakness, fall DS: Discharge Diagnosis Discharge Diagnosis (1) Acute UTI: Code(s): N39.0 - Urinary tract infection, site not specified Status: Acute (2) Rib pain: Code(s): R07.81 - Pleurodynia Status: Acute (3) Weakness: Code(s): R53.1 - Weakness Status: Acute (4) Type 2 diabetes mellitus without complication, without long-term current use of insulin: Code(s): E11.9 - Type 2 diabetes mellitus without complications Status: Acute (5) Campylobacter antigen positive: Code(s): A04.5 - Campylobacter enteritis Status: Acute (6) Hypokalemia: Code(s): E87.6 - Hypokalemia Status: Acute (7) Diarrhea: Code(s): R19.7 - Diarrhea, unspecified Status: Acute DS: Summary Hospital Course Hospital Course: ED workup showed: WBC 11.6, no anemia, normal coags, sodium 134, creatinine 1.4 and GFR 37 (previously 1.5 and GFR 34 on 04/21/2024), glucose 116. UA consistent with UTI. CXR showed no acute cardiopulmonary disease, Subsegmental right basilar opacities, may represent atelectasis, infection, or pulmonary contusion in the setting of trauma. Possible nondisplaced right anterolateral seventh and lateral eighth rib fractures. -Head CT negative. Cervical spine- No acute fracture or traumatic malalignment in the cervical spine. -CT abdomen/pelvis: FINDINGS: Decreased mineralization. No fracture or dislocation. No lytic or blastic lesion. Lumbar degenerative disc disease. Mild bilateral hip osteoarthritis. No erosion or periosteal change. Mild scattered vascular c alcification. IMPRESSION: No acute osseous finding in the pelvis or left hip. did not meet SIRS criteria - UA: Turbid, 2+ protein, trace ketones, positive nitrates, 1+ bilirubin, 2+ leuks, 6-10 RBC, greater than 100 WBC, few epithelial cells, 4+ bacteria - UC growing proteus mirabilis. - previous micro reviewed, Pseudomonas in 2019. - started on Ceftriaxone 1 gm IVPB daily on 04/23, switched to Cefdinir 300 mg PO BID on 04/25. - Stool positive for Campylobacter antigen positive, started on Azithromycin 500 mg PO daily x 3 days. - Potassium replenished. Diarrhea subsided. Patient discharged home with . Status at Discharge Functional status at discharge: uses cane/walker Overall status at discharge: patient is progressing back to baseline Time Spent with Patient Time attestation: Total time spent providing and/or coordinating discharge services: Time spent: Greater than 30 minutes Exam Const: General: comfortable and no acute distress Eyes: Sclera: sclerae normal Resp: Effort & Inspection: normal respiratory effort Auscultation: clear to auscultation bilaterally Cardio: Rate: regular rate Rhythm: regular rhythm GI: GI Palp: Yes Soft to palpation Auscultation: normal bowel sounds Extrem: General: no pedal edema Psych: Mental Status: mental status grossly normal Affect: normal affect DS: Data Data Completed and Pending Labs on day of discharge: Labs from last 24 hours 04/27/24 04/27/24 04/27/24 11:30 07:48 06:35 WBC 7.5 RBC 4.24 Hgb 11.2 L Hct 34.2 L MCV 80.7 MCH 26.4 MCHC 32.7 RDW 14.2 Plt Count 288 MPV 10.0 Immature Gran % (Auto) 1.5 H Neut % (Auto) 54.8 Lymph % (Auto) 30.0 [place] % (Auto) 10.0 H Eos % (Auto) 2.9 Baso % (Auto) 0.8 Lymph # (Auto) 2.25 [place] # (Auto) 0.8 H Eos # (Auto) 0.2 Baso # (Auto) 0.1 Abs Immat Gran (auto) 0.11 H Absolute Neuts (auto) 4.1 Absolute Nucleated RBC 0.000 Nucleated RBC % 0.0 Sodium 136 L Potassium 3.4 Chloride 105 Carbon Dioxide 28 Anion Gap 3 L BUN 14 Creatinine 0.90 Estim Creat Clear Calc Not Reportable Estimated GFR > 60 Glucose 81 POC Capillary Glucose 162 H 79 Calcium 8.5 Total Bilirubin 0.3 AST 35 ALT 22 Alkaline Phosphatase 76 Total Protein 6.0 L Albumin 3.3 L 04/26/24 04/26/24 20:48 16:13 WBC RBC Hgb Hct MCV MCH MCHC RDW Plt Count MPV Immature Gran % (Auto) Neut % (Auto) Lymph % (Auto) [place] % (Auto) Eos % (Auto) Baso % (Auto) Lymph # (Auto) [place] # (Auto) Eos # (Auto) Baso # (Auto) Abs Immat Gran (auto) Absolute Neuts (auto) Absolute Nucleated RBC Nucleated RBC % Sodium Potassium Chloride Carbon Dioxide Anion Gap BUN Creatinine Estim Creat Clear Calc Estimated GFR Glucose POC Capillary Glucose 132 H 169 H Calcium Total Bilirubin AST ALT Alkaline Phosphatase Total Protein Albumin Discharge Plan Discharge Attending physician on discharge: Amos Macedo Discharging Clinician: Darlin Jean Baptiste Patient Disposition: Home Health Service Activity: may shower Diet: diabetic Discharge Instructions: * Per Care Coordination. Patient to have [facility] for RN/PT/OT eval and treat [phone]. They will contact patient to schedule first visit . *RN please fax discharge instructions to [phone]* * Take all doses of antibiotics. * Take probiotic for at least one week after completion of antibiotics. * Good handwashing, wash vegetables before consuming them, and make sure poultry is cooked. * You were positive for a Campylobacter infection in your stool. Azithromycin antibiotic is the treatment for it. Thank you for entrusting [facility] with your healthcare. Patient Instructions: Antibiotic Form, Pain Management (DC), Urinary Tract Infection in Older Adults (DC) Stand Alone Forms: General Discharge Information Follow-up/Referrals: Terrell Resendez, OIL SEPARATOR [Primary Care Provider] - 1 Week UNKNOWN,DOCTOR [Non-Staff] - Discharge Medications: New azithromycin [Zithromax] 250 mg Tablet 500 mg PO DAILY@1600 Qty: 2 0RF cefdinir 300 mg Capsule 300 mg PO BID Qty: 6 0RF Saccharomyces boulardii [Florastor] 250 mg Capsule 250 mg PO BID Qty: 20 0RF Continued (DME) Accu-Chek SmartView Test Strip Strip See Rx Instructions .ROUTE .COMPLEX Qty: 200 1RF Dose Instruction: USE 1 STRIP TO CHECK GLUCOSE THREE TIMES DAILY Rx Instructions: USE 1 STRIP TO CHECK GLUCOSE THREE TIMES DAILY (DME) NovoFine Plus 32 gauge x 1/6 needle See Rx Instructions .Route Qty: 100 1RF Rx Instructions: Ase as directed with insulin pen aspirin 81 mg Tablet 81 mg PO DAILY gabapentin 400 mg capsule 800 mg PO BID hydralazine 25 mg tablet 75 mg PO BID omeprazole 40 mg capsule,delayed release(DR/EC) 40 mg PO BID citalopram 20 mg tablet 20 mg PO DAILY ezetimibe 10 mg tablet 10 mg PO DAILY Januvia 100 mg tablet 100 mg PO DAILY Qty: 90 2RF insulin glargine [Basaglar KwikPen U-100 Insulin] 100 unit/mL (3 mL) insulin pen 30 unit subcut QPM Qty: 15 5RF amlodipine 5 mg tablet 5 mg PO DAILY Qty: 90 1RF atorvastatin 40 mg tablet See Rx Instructions .ROUTE .COMPLEX Qty: 90 2RF Dose Instruction: TAKE 1 TABLET BY MOUTH EVERY DAY Rx Instructions: TAKE 1 TABLET BY MOUTH EVERY DAY Date of admission: 04/24/24 09:48 Primary Care Provider: Terrell Resendez Admitting Provider: Amos Macedo Attending physician on admission: Amos Macedo Condition: Stable Hospitalist MIPS Heart Failure (Exclusion) Patient has history of Heart Transplant or Left Ventricular Assistive Device?: No IF YES, STOP HERE Heart Failure (Qualifier) Patient has current or prior documentation of LVEF less than or equal to 40%, or mod/servere depressed LVSF?: No IF NO, STOP HERE
== END 2024-04-27 13:32 | disposition home health service (06) | DRG 690 ==
LOC: ANHED 15:58 → ANH3MEDSUR 20:04
PROVIDERS: Student in an Organized Health Care Education/Training Program; Admitting Provider General Practice; Emergency Provider Emergency Medicine; PCP Nurse Practitioner; Visit Provider Nurse Practitioner Family
DX: N39.0 Urinary tract infection, site not specified (principal); A04.5 Campylobacter enteritis; I10 Essential (primary) hypertension; E87.6 Hypokalemia; E11.9 Type 2 diabetes mellitus without complications; E78.5 Hyperlipidemia, unspecified; R07.81 Pleurodynia; Z20.822 Contact with and (suspected) exposure to COVID-19; I69.320 Aphasia following cerebral infarction; Z79.82 Long term (current) use of aspirin; Z85.42 Personal history of malignant neoplasm of other parts of uterus; Z91.81 History of falling; B96.4 Proteus (mirabilis) (morganii) as the cause of diseases classified elsewhere
CPT/HCPCS: 36415; 70450; 71045; 72125; 73030; 73502; 80048; 80053; 81001; 82948; 83036; 83605; 83690; 83735; 83880; 84145; 84484; 85025; 85610; 85730; 87045; 87077; 87086; 87088; 87186; 87427; 87449; 87493; 87637; 93005; 96360; 96365; 97161; 97165; 97530; 97535; 99284; 99285; A9270; G0378; J0696; J1815; J7030

== ENCOUNTER 2025-01-02 21:01 | Emergency (ER) | payer MEDICARE, SELFPAY ==
--- NOTE | ~2025-01-02 | CT_ITS ---
EXAMINATION: CT brain wo con DATE: 01/03/2025 01:11 INDICATION: Headache TECHNIQUE: Computed tomography (CT) of the head was performed without intravenous contrast. The dose- length product was 681.00 mGy-cm. Automated exposure control and iterative reconstruction technique w ere employed. COMPARISON: CT dated 04/21/2024 FINDINGS: Generalized atrophy. Chronic left posterior parietal/occipital lobe infarction. There are s cattered mild periventricular and subcortical white matter changes, most likely related to small vess el ischemic disease (microangiopathy). Chronic left lacunar infarction. No ventriculomegaly or midlin e shift. Basilar cisterns are patent. Paranasal sinuses and mastoids are pneumatized. No depressed sk ull fractures. No acute infarction, hemorrhage, mass or mass effect. IMPRESSION: 1. No acute intracranial abnormality. Reviewed, dictated and finalized at location A.
--- OUTSIDE RECORDS SUMMARY | 2025-01-02 21:03 | XMS_ITS | Clinical Summary ---
Author Organization [facility] Address [address] [place] [address] Phone Care Team Providers Care Logistics And Planning Manager Name Role Phone Provider, Unknown Primary Care Provider Unavaila ble Allergies Active Allergy Reactions Criticality Noted Date Comments Morphine And Codeine 04/18/1997 Phenobarbital-Belladonna Alk 997 Sulfa Antibiotics 04/18/1997 Family History Medical History Relation Name Comments Breast Cancer Maternal Aunt Ovarian Cancer Other maternal cous in Relation Name Status Comments Maternal Aunt Other Social History Tobacco Use Types Packs/Day Years Used Date Smoking Tobacco: Never Assessed Comments No Sex and Gender Information Value Date Recorded Sex Assigned at Not on file 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 Gender Identity Not on file Sexual Orientation Not on file Plan of Treatment Health Maintenance Due Date Last Done Comments Hepatitis C Virus (HCV) Screening 1945 TdaP Immunization 1945 Pneumococcal Immunization (5 0+ years) (1 of 1 - PCV) 1997 Zoster Immunization (1 of 2) 1997 Respiratory Syncytial Virus (RSV) Immunization (Adult) (1 - 1-dose 75+ series) 2022 SARS-COV-2 Immunization ( - season) 2024 Influenza Immunization (#1) 2025 Mammogram Discontinued 01/09/2012, 01/04/2011, 05/28/2007 Hepatitis B Immunization Aged Out No longer eligible based on patient's age to complete this topic Human Papillomavirus (HPV) Immunization Aged Out No longer eligible based on patient's age to complete this topic Meningococcal Immunization (ACWY) Aged Out No longer eligible based on patient's age to complete this topic Rotavirus Immunization Aged Out No lo nger eligible based on patient's age to complete this topic Procedures Procedure Name Priority Date/Time Associated Diagnosis Comments [facility] SCREENING BILATERAL DIGITAL W CAD Routine 01/09/2012 3:33 PM CDT Other screening mammogram from Last 3 Months or Most Recently Relevant to Health Maintenance Results * [facility] SCREENING BILATERAL DIGITAL W CAD (01/09/2012 3:33 PM CDT) Anatomical Region Laterality Modality breast Bilateral Mammography 01/09/2012 3:33 PM CDT Impressions 01/10/2012 3:08 PM CDT IMPRESSION: BI-RADS 0. NEEDS ADDITIONAL IMAGING EVALUATION. Recommend compression magnification views for asymmetry in the left medial breast, middle depth. Narrative 01/10/2012 3:08 PM CDT DICTATING PHYSICIAN: Natan Monte M.D. EXAM: [facility] SCREENING BILATERAL DIGITAL W CAD Jan 09, 2012 03:33:00 PM COMPARISON: 01/04/2011, 05/28/2007 TECHNIQUE: Routine views of the breasts. The current study was also evaluated with a Computer Aided Detection (CAD) system. FINDINGS: The breasts are composed of scattered fibroglandular densities. There is an asymmetry in the left medial breast, middle depth. The left breast demonstrates no evidence for suspicious calcification, architectural distortion, or masses. Procedure Note Natan Monte MD - 01/10/2012 DICTATING PHYSICIAN: Natan Monte M.D. EXAM: [facility] SCREENING BILATERAL DIGITAL W CAD Jan 09, 2012 03:33:00 PM COMPARISON: 01/04/2011, 05/28/2007 TECHNIQUE: Routine views of the breasts. The current study was alsoevaluated with a Computer Aided Detection (CAD) system. FINDINGS: The breasts are composed of scattered fibroglandular densities. There isan asymmetry in the left medial breast, middle depth. The left breastdemonstrates no evidence for suspicious calcification, architecturaldistortion, or masses. IMPRESSION: BI-RADS 0. NEEDS ADDITIONAL IMAGING EVALUATION. Recommend compression magnification views for asymmetry in the left medialbreast, middle depth. us Cathie Crow MD IMG MAMMO ORDERABLE S Final Result from Last 3 Months or Most Recently Relevant to Health Maintenance Insurance [facility] Care Teams Logistics And Planning Manager Relationship Specialty Start Date End Date Provider, Unknown UNKNOWN PCP - General 01/18/12
--- OUTSIDE RECORDS SUMMARY | 2025-01-02 21:03 | XMS_ITS ---
Author Name Auto Generated, Auto Generated Organization [facility] Address [address] [place] [address] Phone [phone] Care Team Providers Care Air Value Tester Name Role Phone Nathan Chilel Unavailable [phone] Godwin Moreno Unavailable Functional Status No Results Mental Status No Results Allergies and Intolerances Name Onset Date Reaction Severity morphine (Allergy) MonJan 11 14:45:00 EDT 2020 Uqlahlm-UYA-MmO Reductase Inhibitors (Allergy) Nov 03 13:35:00 EDT 2020 fentanyl (Allergy) MonNov 03 13:35:00 EDT 2020 phenobarbital (Allergy) MonNov 03 13:35:00 EDT 2020 hydrobenzthiazide (Allergy) MonNov 03 13:35:00 EDT 2020 hydrocodone (Allergy) MonNov 03 13:35:00 EDT 20 21 lisinopril (Allergy) MonNov 03 13:33:00 EDT 202 1 belladonna alkaloids (Allergy) MonNov 03 13:33: 00 EDT 2020 Sulfa (Sulfonamide Antibiotics) (Allergy) Mon 13:33:00 EDT 2020 metoprolol (Allergy) MonNov 03 13:32:00 EDT 202 1 cephalexin (Allergy) MonNov 03 13:24:00 EDT 202 1 codeine (Allergy) MonNov 03 13:19:00 EDT 2020 Medications Medication Directions Start Date End Date Januvia 100 mg tablet 1 tablet TABLET Or al 1 Time Daily MonJan 20 16:00:00 2020Jan 22 01:00:00 2020 Lantus U-100 Insulin 100 unit/mL subcutaneous solution 15 units VIAL (ML) Subcutaneous 1 Time Daily MonJan 15 17:00:00 2020Jan 22 01:00:00 2020 Januvia 50 mg tablet 1 tablet TABLET Ora l 1 Time Daily MonJan 15 17:00:00 2020Jan 20 17:01:00 2020 NovoLOG Flexpen U-100 Insulin aspart 100 unit/mL (3 mL) subcutaneous as directed INSULIN PEN (ML) Subcutaneous 3 Times Daily MonJan 14 01:00:00 2020Jan 22 01:00:00 2020 acetaminophen 500 mg tablet 1000 mg TABLET Oral PRN Every 6 Hours pain MonJan 11 14:00:00 2020Jan 22 01:00:00 2020 amLODIPine 5 mg tablet 5 mg TABLET Oral 1 Time Daily dx: Htn MonJan 11 14:00:00 2020Jan 22 01:00:00 2020 aspirin 81 mg tablet,delayed release 81 mg TABLET, DELAYED RELEASE (ENTERIC COATED) Oral 1 Time Daily Dx: anticoagulation prophylaxis's MonJan 11 14:00:00 2020Jan 22 01:00:00 2020 atorvastatin 40 mg tablet 40 mg TABLET O ral 1 Time Daily MonJan 11 14:00:00 2020Jan 22:00:00 2020 calcium carb,cit ER 600 mg-vit D3 12.5 mcg (500 unit) tablet,ext.rel 1 tablet TABLET, EXTENDED RELEASE Oral 2 Times Daily supplement MonJan 11 14:00:00 2020Jan 11 14:23:00 2020 ezetimibe 10 mg tablet 10 mg TABLET Oral 1 Time Daily MonJan 11 14:00:00 2020Jan 22 01:00:00 2020 FLUoxetine 20 mg capsule 20 mg CAPSULE O ral 1 Time Daily MonJan 11 14:00:00 2020Jan 22 01:00:00 2020 hydrALAZINE 50 mg tablet 75 mg TABLET Or al 2 Times Daily MonJan 11 14:00:00 2020Jan 22 01:00:00 ED2020 magnesium 400 mg (as magnesium oxide) capsule 400 mg CAPSULE Oral 2 Times Daily Supplement MonJan 11 14:00:00 EDT 2020Jan 15 13:29:00 ED2020 omeprazole 40 mg capsule,delayed release 40 mg CAPSULE,DELAYED RELEASE (ENTERIC COATED) Oral 2 Times Daily Dx: GERD MonJan 11 14:00:00 EDT 2020Jan 22 01:00:00 ED2020 Osteo Bi-Flex 250 mg-200 mg tablet 1 tab TABLET Oral 1 Time Daily Supplement MonJan 11 14:00:00 ED2020Jan 15 13:29:00 ED2020 polyethylene glycoL 3350 17 gram oral powder packet 17 gram POWDER IN PACKET (EA) Oral PRN 1 Time Daily Dx: Constipation MonJan 11 14:00:00 EDT 2020Jan 22 01:00:00 2020 Januvia 25 mg tablet 25 mg TABLET Oral 1 Time Daily MonJan 11 14:00:00 ED2020Jan 15 17:28:00 ED2020 TUBErsoL 5 tub. unit/0.1 mL intradermal injection solution 0.1 ml VIAL (ML) Intradermal 1 Time Weekly for 2 Weeks MonJan 11 14:00:00 ED2020Jan 22 01:00:00 2020 TUBErsoL 5 tub. unit/0.1 mL intradermal injection solution Read Results VIAL (ML) Other 1 Time Weekly for 2 Weeks MonJan 11 14:00:00 ED2020Jan 22 01:00:00 2020 magnesium oxide 400 mg (241.3 mg magnesium) tablet 1 tablet Oral 2 Times Daily MonJan 15 13:00:00 ED2020Jan 22:00:00 2020 Osteo Bi-Flex Triple Strength 750 mg-644 mg-30 mg-1 mg tablet 1 tablet Oral 1 Time Daily MonJan 15 01:00:00 2020Jan 22 01:00:00 2020 Colace 100 mg capsule 100mg CAPSULE Oral 2 Times Daily Constipation Sat Nov 28 11:00:00 ED2020 Sat Nov 28 01:00:00 ED2020 Lantus Solostar U-100 Insulin 100 unit/mL (3 mL) subcutaneous pen 20 Units INSULIN PEN (ML) Subcutaneous 1 Time Daily HOLD if blood sugar is less than 120. MonNov 28 10:00:00 ED2020Nov 28:00: ED2020 Deep Sea Nasal 0.65 % spray aerosol 2 sprays AEROSOL, SPRAY (ML) Intranasal 2 Times Daily for 3 Days Dryness MonNov 26 14:00:00 ED2020Nov 28:00:00 ED2020 Lantus Solostar U-100 Insulin 100 unit/mL (3 mL) subcutaneous pen 20 Units INSULIN PEN (ML) Subcutaneous 1 Time Daily DM MonNov 26 14:00:00 ED2020Nov 28 01:00:00 ED2020 Tradjenta 5 mg tablet 1 tablet TABLET Or al 1 Time Daily MonNov 22 07:00:00 ED2020Nov 28 01:00: ED2020 Janumet 50 mg-1,000 mg tablet 1 tablet TABLET Oral 2 Times Daily MonNov 18 19:30:00 ED2020 Sun Nov 22 07:38:00 ED2020 Lantus Solostar U-100 Insulin 100 unit/mL (3 mL) subcutaneous pen 30 units INSULIN PEN (ML) Subcutaneous 1 Time Daily MonNov 16 19:00:00 ED2020Nov 16 21:02:00 ED2020 Lantus Solostar U-100 Insulin 100 unit/mL (3 mL) subcutaneous pen 30 units INSULIN PEN (ML) Subcutaneous 1 Time Daily MonNov 16 21:00:00 ED2020Nov 26 14:42:00 2020 ondansetron HCL 4 mg tablet 4mg TABLET Oral 2 Times Daily Nausea/Vomiting MonNov 14 01:00:00 2020Nov 28:00:00 ED2020 Deep Sea Nasal 0.65 % spray aerosol 1-2 sprays AEROSOL, SPRAY (ML) Intranasal PRN Every 4 Hours MonNov 13 01:00:00 2020Nov 28:00:00 2020 ondansetron HCL 4 mg tablet 4mg TABLET Oral PRN Every 6 Hours Nausea/Vomiting MonNov 12 17:00:00 ED2020Nov 13 20:47:00 ED2020 Novofine Autocover 30 gauge x 1/3 needle as directed NEEDLE, DISPOSABLE Subcutaneous PRN MonNov 12 01:00:00 2020Nov 28 01:00:00 EDT 2020 HumaLOG KwikPen (U-100) Insulin 100 unit/mL subcutaneous 5 units INSULIN PEN (ML) Subcutaneous 1 Time Daily MonNov 11 13:00:00 EDT 2020Nov 18 16:07:00 EDT 2020 HumaLOG U-100 Insulin 100 unit/mL subcutaneous solution SSI VIAL (ML) Subcutaneous 3 Times Daily DM MonNov 10 16:00:00 EDT 2020Nov 24 19:02:00 EDT 2020 metFORMIN 1,000 mg tablet 1 tablet TABLE T Oral 2 Times Daily MonNov 09 19:00:00 EDT 2020Nov 28 01:00:00 EDT 2020 polyethylene glycoL 3350 17 gram oral powder packet 17 grams POWDER IN PACKET (EA) Oral 1 Time Daily Constipation MonNov 06 16:00:00 EDT 2020Nov 11 12:51:00 EDT 2020 pantoprazole 40 mg tablet,delayed release 1 tablet TABLET, DELAYED RELEASE (ENTERIC COATED) Oral 2 Times Daily MonNov 06 18:00:00 EDT 2020Nov 28 01:00:00 EDT 2020 Augmentin 875 mg-125 mg tablet 1 tablet TABLET Oral 2 Times Daily for 10 Days MonNov 06 18:00:00 EDT 2020Nov 06 18:17:00 EDT 2020 Acidophilus capsule 1 capsule CAPSULE Or al 2 Times Daily for 17 Days MonNov 07 01:00:00 EDT 2020Nov 24 00:59:00 EDT 2020 amoxicillin 875 mg-potassium clavulanate 125 mg tablet 1 tablet TABLET Oral 2 Times Daily for 10 Days MonNov 07 01:00:00 EDT 2020Nov 17 00:59:00 EDT 2020 ondansetron HCL 4 mg tablet 1-2 tablet TABLET Oral PRN Every 6 Hours MonNov 06 18:00:00 EDT 2020Nov 11 12:51:00 EDT 2020 TUBErsoL 5 tub. unit/0.1 mL intradermal injection solution 0.1 ml VIAL (ML) Intradermal 1 Time Weekly for 2 Weeks MonNov 04 13:00:00 ED2020Nov 18 12:59:00 EDT 2020 TUBErsoL 5 tub. unit/0.1 mL intradermal injection solution Read Results VIAL (ML) Other 1 Time Weekly for 2 Weeks MonNov 04 13:00:00 ED2020Nov 18 12:59:00 ED2020 aspirin 81 mg chewable tablet 81mg TABLET,CHEWABLE Oral 1 Time Daily CVA MonNov 03 13:00:00 ED2020Nov 28 01:00: ED2020 clopidogreL 75 mg tablet 75mg TABLET Ora l 1 Time Daily CVA MonNov 03 13:00:00 ED2020Nov 28 01:00: ED2020 hydrALAZINE 25 mg tablet 3 tablets TABLE T Oral 2 Times Daily HTN MonNov 03 13:00:00 ED2020Nov 28 01:00:00 ED2020 losartan 50 mg tablet 2 tablets TABLET O ral 1 Time Daily HTN MonNov 03 13:00:00 ED2020Nov 28:00:00 ED2020 FLUoxetine 20 mg capsule 20mg CAPSULE Or al 1 Time Daily Depression MonNov 03 13:00:00 2020Nov 28 01:00:00 ED2020 Lanparulus Solurszulaar U-100 Insulin 100 unit/mL (3 mL) subcutaneous pen 25 Units INSULIN PEN (ML) Subcutaneous 1 Time Daily Hyperglycemia MonNov 03 13:00:00 ED2020 Mon Oct 28 19:53:00 ED2020 Calmoseptine 0.44 %-20.6 % topical ointment 1 application OINTMENT (GRAM) Topical 2 Times Daily Apply to buttocks BID MonNov 03 14:00:00 2020Nov 28 01:00:00 ED2020 ezetimibe 10 mg tablet 10mg TABLET Oral 1 Time Daily HLD MonNov 03 14:00:00 2020Nov 28 01:00:00 ED2020 ferrous sulfate 325 mg (65 mg iron) tablet 1 tablet TABLET Oral 2 Times Daily Anemia MonNov 03 14:00:00 ED2020Nov 28 01:00:00 ED2020 amLODIPine 5 mg tablet 5mg TABLET Oral 1 Time Daily HTN MonNov 03 14:00:00 ED2020Nov 28 01:00:00 ED2020 Dulcolax (bisacodyl) 10 mg rectal suppository 10mg SUPPOSITORY, RECTAL Rectal PRN 1 Time Daily Consipation MonNov 03 14:00:00 EDT 2020Nov 11 12:51:00 EDT 2020 HumaLOG KwikPen (U-100) Insulin 100 unit/mL subcutaneous 8 Units INSULIN PEN (ML) Subcutaneous 3 Times Daily DM MonNov 03 14:00:00 EDT 2020Nov 09 18:02:00 EDT 2020 HumaLOG KwikPen (U-100) Insulin 100 unit/mL subcutaneous SSI INSULIN PEN (ML) Subcutaneous 3 Times Daily DM MonNov 03 14:15:00 EDT 2020Nov 10 17:34:00 EDT 2020 atorvastatin 20 mg tablet 20mg TABLET Or al 1 Time Daily HLD MonNov 03 14:00:00 EDT 2020Nov 28 01:00:00 EDT 2020 docusate sodium 100 mg capsule 100mg CAPSULE Oral 2 Times Daily Constipation MonNov 03 14:00:00 EDT 2020Nov 11 12:51:00 EDT 2020 omeprazole 40 mg capsule,delayed release 40mg CAPSULE,DELAYED RELEASE (ENTERIC COATED) Oral 2 Times Daily GERD MonNov 03 14:00:00 EDT 2020Nov 06 17:51:00 EDT 2020 polyethylene glycoL 3350 17 gram oral powder packet 17 grams POWDER IN PACKET (EA) Oral PRN 1 Time Daily Constipation MonNov 03 14:00:00 EDT 2020Nov 06 17:51:00 EDT 2020 Problems Active Concerns * Hemiplegia and hemiparesis following cerebral infarction affecting right dominant side* Code: * Start Date: MonNov 03 00:00:00 EDT 2020 * End Date: * Text: * Aphasia following cerebral infarction* Code: * Start Date: MonNov 03 00:00:00 EDT 2020 * End Date: * Text: * Hyperlipidemia, unspecified* Code: * Start Date: MonNov 03 00:00:00 EDT 2020 * End Date: * Text: * Diverticulosis of intestine, part unspecified, without perforation or abscess without bleeding* Code: * Start Date: MonNov 03 00:00:00 EDT 2020 * End Date: * Text: * Gastro-esophageal reflux disease without esophagitis* Code: * Start Date: MonNov 03 00:00:00 EDT 2020 * End Date: * Text: * Iron deficiency anemia, unspecified* Code: * Start Date: MonNov 03 00:00:00 EDT 2020 * End Date: * Text: * Slow transit constipation* Code: * Start Date: MonNov 03 00:00:00 EDT 2020 * End Date: * Text: * Major depressive disorder, single episode, unspecified* Code: * Start Date: MonNov 03 00:00:00 EDT 2020 * End Date: * Text: * Obesity, unspecified* Code: * Start Date: MonNov 03 00:00:00 EDT 2020 * End Date: * Text: * MCFP (current) use of aspirin* Code: * Start Date: MonNov 03 00:00:00 EDT 2020 * End Date: * Text: * Body mass index [BMI] 31.0-31.9, adult* Code: * Start Date: MonNov 03 00:00:00 EDT 2020 * End Date: * Text: * [facility]FP (current) use of antithrombotics/antiplatelets* Code: * Start Date: MonNov 03 00:00:00 EDT 2020 * End Date: * Text: * Acute kidney failure, unspecified* Code: * Start Date: MonJan 11 00:00:00 EDT 2020 * End Date: * Text: * Nausea with vomiting, unspecified* Code: * Start Date: MonJan 11 00:00:00 EDT 2020 * End Date: * Text: * Adult failure to thrive* Code: * Start Date: MonJan 11 00:00:00 EDT 2020 * End Date: * Text: * Abnormal weight loss* Code: * Start Date: MonJan 11 00:00:00 EDT 2020 * End Date: * Text: * Hypomagnesemia* Code: * Start Date: MonJan 11 00:00:00 EDT 2020 * End Date: * Text: * Patient's noncompliance with dietary regimen* Code: * Start Date: MonJan 11 00:00:00 EDT 2020 * End Date: * Text: * Hypertensive chronic kidney disease with stage 1 through stage 4 chronic kidney disease, or unspecified chronic kidney disease* Code: * Start Date: MonJan 11 00:00:00 EDT 2020 * End Date: * Text: * Type 2 diabetes mellitus with diabetic chronic kidney disease* Code: * Start Date: MonJan 11 00:00:00 EDT 2020 * End Date: * Text: * Chronic kidney disease, stage 3a* Code: * Start Date: MonJan 11 00:00:00 EDT 2020 * End Date: * Text: * Malignant neoplasm of endometrium* Code: * Start Date: MonJan 11 00:00:00 EDT 2020 * End Date: * Text: * Dysphasia following cerebral infarction* Code: * Start Date: MonJan 11 00:00:00 EDT 2020 * End Date: * Text: * 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
[2025-01-02 21:50] VITALS: BP 152/75; PULSE 87; RESP 16; TEMP 36.5; O2SAT 100
--- OUTSIDE RECORDS SUMMARY | 2025-01-03 00:34 | XMS_ITS | Clinical Summary ---
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 Name Role Phone Provider, Unknown Primary Care [...] on file Legal Sex Female 3:08 AM [employer] Gender Identity Not on file Sexual Orientation [...] Procedure Name Priority Date/Time Associated Diagnosis Comments [facility] SCREENING BILATERAL DIGITAL W CAD Routine 01/09/2012 3:33 PM CDT Other screening mammogram from Last 3 Months or Most Recently Relevant to Health Maintenance Results * [facility] SCREENING BILATERAL DIGITAL W CAD (01/09/2012 3:33 PM CDT) Anatomical Region Laterality Modality breast Bilateral Mammography 01/09/2012 3:33 PM CDT Impressions 01/10/2012 3:08 PM CDT IMPRESSION: BI-RADS 0. NEEDS ADDITIONAL IMAGING EVALUATION. Recommend compression magnification views for asymmetry in the left medial breast, middle depth. Narrative 01/10/2012 3:08 PM CDT DICTATING PHYSICIAN: Natan Monte M.D. EXAM: [facility] SCREENING BILATERAL DIGITAL W CAD Jan 09, [...] 01/10/2012 DICTATING PHYSICIAN: Natan Monte M.D. EXAM: [facility] SCREENING BILATERAL DIGITAL W CAD Jan 09, [...] Most Recently Relevant to Health Maintenance Insurance [facility] Care Teams Stoneworking Belt Sander Relationship Specialty Start Date End Date Provider, Unknown UNKNOWN PCP - General 01/18/12
--- NOTE | 2025-01-03 00:39 | ED_ITS ---
HPI - Headache General Chief Complaint: Headache Stated Complaint: migrane Time Seen by Provider: 01/03/25 00:25 Source: patient Mode of arrival: EMS Limitations: no limitations History of Present Illness HPI Narrative: This is a 79-year-old female that presents to the emergency department for a migraine. Ongoing since earlier today. Reports associated nausea and vomiting. She tried taking Tylenol this afternoon with little relief. 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 No new weakness. Denies any recent injuries. Denies fevers. Related Data Home Medications ?Medication ?Instructions ?Recorded ?Confirmed ?Last Taken ?Type aspirin 81 mg tablet 81 mg PO DAILY 12/05/20 12/05/24 04/23/24 History Allergies Allergy/AdvReac Type Severity Reaction Status Date / Time Sulfa (Sulfonamide Allergy Intermediate RASH,HIVE Verified 01/02/25 21:57 Antibiotics) codeine AdvReac Intermediate VOMITING Verified 01/02/25 21:57 AND MIGRAINES fentanyl AdvReac Intermediate MIGRAINE,VO Verified 01/02/25 21:57 MITING hydrocodone AdvReac Intermediate MIGRAINE,VO Verified 01/02/25 21:57 MITING lisinopril AdvReac Intermediate COUGH Verified 01/02/25 21:57 metoprolol AdvReac Intermediate migraines,v Verified 01/02/25 21:57 omiting belladonna alkaloids AdvReac Mild MIGRAINE,VO Verified 01/02/25 21:57 MITING cephalexin AdvReac Mild Vomiting Verified 01/02/25 21:57 phenobarbital AdvReac Mild MIGRAINES,V Verified 01/02/25 21:57 OMITING [id number] Reductase AdvReac Mild Vomiting Verified 01/02/25 21:57 Inhibitor morphine AdvReac Unknown MIGRAINE,VO Verified 01/02/25 21:57 MITING Review of Systems Review of Systems: All systems reviewed & are unremarkable except as noted in HPI and below PMFSH Past Medical History Medical History (Updated 01/03/25 @ 05:08 by Darya Shepard PA-C) Hyperlipidemia Aphasia Chronic anemia Uterine cancer Hypertension CVA (cerebral vascular accident) Chronic pruritus Medial epicondylitis of right elbow DM w/o complication type II, uncontrolled Diabetes 02/02/21 A1C = 6.6 Surgical History Surgical History H/O arthroscopic knee surgery bilateral - over 10 years ago, per pt H/O: hysterectomy Family History Family History Father Family history of blood dyscrasia Family history of Alzheimer's disease Family history of macular degeneration Mother Family history of chronic obstructive pulmonary disease Family history of coronary artery disease Family history of malignant neoplasm of esophagus Grandparent Carcinoma of colon Sibling Family history of type 2 diabetes mellitus Other Family history of malignant neoplasm of breast Social History Social History Social History: patient recently had a stroke 10/09 and was at [place] for last week and half. When she leaves here she is going to move in with her son Chin [place]. her son Chin Resendez will be her surrogate and patient wishes to be a full code. Currently patient lives with no other pets Smoking status: Never smoker Second hand tobacco smoke exposure: Yes Alcohol intake: never Alcohol use details: Social Substance use: never Substance use type: does not use Do You Feel Safe in your Home?: Yes Lack of Transportation: YES Lack of Food: Never True Current Housing: I Have Housing Concerned About Future Housing: No Difficulty Paying Gas/Electric Bills: Decline to Answer Difficulty Paying for Meds: No Currently Unemployed: Decline to Answer Education: High School Diploma/GED Difficulty w/ Childcare or Family Care: No Living arrangements: group home Occupation/Education: retired Gender identity (if verbalized by the patient): Female Sexual Orientation (if Verbalized by the Patient): Straight or Heterosexual Spiritual care concerns: No Exam Narrative: GENERAL: Well-appearing, well-nourished, and in no acute distress. HEAD: Normocephalic, atraumatic. EYES: PERRLA and EOMI. ENT: Nares clear, no rhinorrhea or epistaxis. Mucous membranes moist. Oropharynx without tonsillar hypertrophy exudate or other lesions. Bilateral TMs pearly eric non-bulging NECK: Supple. No adenopathy or masses. CHEST: Clear to auscultation. No respiratory distress. No wheezes rales or rhonchi HEART: Regular rate and rhythm. No murmur heard. Normal peripheral pulses. ABDOMEN: Soft, nontender, nondistended, normal active bowel sounds. EXTREMITIES: Normal range of motion, except decreased active ROM in the right knee, foot, ankle, which is chronic from her stroke. No edema. SKIN: Warm, dry, no rash. NEURO: No focal deficits. Alert and oriented x3. CN II-XII grossly intact PSYCH: Normal mood and affect Course Course Emergency Course: Patient resting comfortably. Agrees with plan of care Vital Signs Vital signs: Vital Signs Temperature 97.7 F 01/02/25 21:50 Pulse Rate 87 01/02/25 21:50 Respiratory Rate 16 01/02/25 21:50 Blood Pressure 152/75 H 01/02/25 21:50 Pulse Oximetry 100 01/02/25 21:50 Oxygen Delivery Room Air 01/02/25 21:50 Temperature 97.7 F 01/02/25 21:50 Pulse Rate 87 01/02/25 21:50 Respiratory Rate 16 01/02/25 21:50 Blood Pressure 152/75 H 01/02/25 21:50 Pulse Oximetry 100 01/02/25 21:50 Oxygen Delivery Room Air 01/02/25 21:50 MDM - Headache MDM Narrative Medical decision making narrative: Patient presents the emergency department for a migraine headache. History of same. Also history of CVA with residual weakness in the right leg. Patient is afebrile and nontoxic appearing. Neurologically intact at her baseline. Her vitals are stable. CT brain without acute findings. Patient with relief after migraine cocktail. Updated on her workup. Agrees with plan of care. Instructed to have close follow-up with her primary provider. She was given warnings to return to the ER Differential Diagnosis Differential diagnosis: Likely migraine, tension headache, subarachnoid hemorrhage, headache and sinusitis Imaging Data Radiologist's impression: ITS Impressions Head CT 01/03/25 06:09 IMPRESSION: 1. No acute intracranial abnormality. Critical Care Time Critical Care Time Critical Care Time: No Discharge Plan Discharge Clinical Impression: Headache Qualifiers: Headache type: unspecified Headache chronicity pattern: acute headache Intractability: not intractable Qualified Code(s): R51.9 - Headache, unspecified Patient Disposition: Home Condition: Improved Instructions: Acute Headache (ED) Patient Language: Slovak Prescriptions: No Action (DME) blood-glucose meter [Accu-Chek Guide Glucose Meter] Misc See Rx Instructions .Route Qty: 1 1RF Rx Instructions: As directed (DME) Accu-Chek Guide test strips Strip See Rx Instructions .Route Qty: 100 4RF Rx Instructions: As directed; check TID (DME) Accu-Chek SmartView Test Strip Strip See Rx Instructions .ROUTE .COMPLEX Qty: 200 1RF Dose Instruction: USE 1 STRIP TO CHECK GLUCOSE THREE TIMES DAILY Rx Instructions: USE 1 STRIP TO CHECK GLUCOSE THREE TIMES DAILY (DME) NovoFine Plus 32 gauge x 1/6 needle See Rx Instructions .Route Qty: 100 1RF Rx Instructions: Ase as directed with insulin pen atorvastatin 40 mg tablet See Rx Instructions .ROUTE .COMPLEX Qty: 90 2RF Dose Instruction: TAKE 1 TABLET BY MOUTH EVERY DAY Rx Instructions: TAKE 1 TABLET BY MOUTH EVERY DAY ezetimibe 10 mg tablet 10 mg PO DAILY Qty: 90 1RF gabapentin 400 mg capsule See Rx Instructions .ROUTE .COMPLEX Qty: 450 2RF Dose Instruction: Take 2 capsules by mouth twice daily Rx Instructions: Take 3 capsules by mouth in the AM and 2 capsules at night. omeprazole 40 mg capsule,delayed release(DR/EC) 40 mg PO BID Qty: 180 2RF aspirin 81 mg Tablet 81 mg PO DAILY Saccharomyces boulardii [Florastor] 250 mg Capsule 250 mg PO BID Qty: 20 0RF insulin glargine [Lantus Solostar U-100 Insulin] 100 unit/mL (3 mL) insulin pen 30 unit subcut QPM Qty: 15 5RF Januvia 100 mg tablet 100 mg PO DAILY Qty: 90 2RF (DME) lancets [Accu-Chek Softclix Lancets] Misc See Rx Instructions .Route Qty: 100 3RF Rx Instructions: As directed amlodipine 5 mg tablet 5 mg PO DAILY Qty: 90 2RF hydralazine 25 mg tablet 75 mg PO BID Qty: 360 1RF citalopram 20 mg tablet 20 mg PO DAILY Qty: 90 1RF ondansetron HCl 4 mg tablet 4 mg PO Q8H PRN (Reason: nausea and vomiting) Qty: 30 1RF Qulipta 30 mg tablet 30 mg PO DAILY Qty: 30 2RF Follow-up/Referrals: Easton Dawson DO [Primary Care Provider] -
[2025-01-03] MEDS: SODIUM CHLORIDE 0.9% IV 500 ML 999 ML IV CONT (00:56)
[2025-01-03] MEDS: METOCLOPRAMIDE HCL INJ 10 MG/2 ML VIAL IV PUSH (00:56)
[2025-01-03] MEDS: ACETAMINOPHEN 500 MG TABLET 1000 MG PO (00:57)
== END 2025-01-03 05:10 | disposition home or self-care (01) ==
PROVIDERS: Emergency Provider Physician Assistant; PCP Internal Medicine
DX: R51.9 Headache, unspecified (principal); I69.941 Monoplegia of lower limb following unspecified cerebrovascular disease affecting right dominant side; I69.992 Facial weakness following unspecified cerebrovascular disease; I10 Essential (primary) hypertension; E11.9 Type 2 diabetes mellitus without complications; E78.5 Hyperlipidemia, unspecified; D64.9 Anemia, unspecified; Z85.42 Personal history of malignant neoplasm of other parts of uterus; Z90.710 Acquired absence of both cervix and uterus; Z77.22 Contact with and (suspected) exposure to environmental tobacco smoke (acute) (chronic); Z79.82 Long term (current) use of aspirin; Z79.4 Long term (current) use of insulin; Z79.84 Long term (current) use of oral hypoglycemic drugs; Z79.899 Other long term (current) drug therapy
CPT/HCPCS: 70450; 96361; 96374; 96375; 99284; A9270; J1100; J1200; J1885; J2765; J7040